=== PATIENT | male | born 1940 | race Caucasian/White ===

== ENCOUNTER 2020-09-20 06:06 | Inpatient (IN) | payer MEDICARE ==
[2020-09-20] MEDS ORDERED: [UNRECOGNIZED DRUG - OTHER] IV SCH (06:45)
[2020-09-20] MEDS ORDERED: HUM PROTHROMBIN CPLX IV SCH (06:45)
[2020-09-20] MEDS ORDERED: ADMIXTURE FEE IV SCH (06:45)
[2020-09-20 07:17] LABS: Hemoglobin 7.1 g/dL (14.0-18.0); Mean Corpuscular HGB CONC 31.3 g/dL (32.0-36.0); Mean Corpuscular Hemoglobin 24.9 pg (27.0-31.0); Mean Corpuscular Volume 79.4 fL (78.0-98.0); Mean Platelet Volume 9.9 fL (7.4-10.4); Platelet Count 107 thou/uL (130-400); RBC Distribution Width 16.8 % (11.5-14.5); Red Blood Cell (RBC) Count 2.84 mill/uL (4.70-6.10); White Blood Cell (WBC) Count 1.7 thou/uL (4.8-10.8)
[2020-09-20 07:20] LABS: INR-International Normal Ratio 1.5; PTT 30.2 sec (22.9-36.1); Prothrombin Time 18.1 sec (12.0-14.7)
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
[2020-09-20 07:51] LABS: CKMB 0.7 ng/mL (0-6.6)
[2020-09-20] MEDS ORDERED: Nitroglycerin 0.4 MG TAB (25 Tab Bottle) SL PRN (08:03)
[2020-09-20 08:08] LABS: #Lymphocytes 0.8 thou/uL (1.20-3.40); #Monocytes 0.2 thou/uL (0.11-0.59); #Neutrophils 0.8 thou/uL (1.40-6.50); %Eosinophils 1.1 % (0.0-10.0); %Lymphocytes 44.8 % (21.0-51.0); %Monocytes 9.2 % (0.0-10.0); %Neutrophils 44.9 % (42.0-75.0); Band 4 % (5-11); Hypochromia SLIGHT = 6-15 cells (100X) (0-5/hpf); Lymphocytes 51 % (21-51); MDiff Complete? YES; Microcytosis SLIGHT = 6-15 cells (100X) (0-5/hpf); Monocytes 3 % (0-10); Neutrophil 40 % (42-75); Ovalocytes MODERATE= 6-15 cells (100X) (0-1/hpf); Platelet Morphology Comment Appears Decreased; Polychromasia SLIGHT = 2-3 cells (100X) (0-2/hpf); Reactive Lymphocytes 2 % (0-10); Reflex for Review?? YES; Schistocytes SLIGHT = 2-5 cells (100X) (0-1/hpf); Tear Drops SLIGHT = 2-5 cells (100X) (0-1/hpf)
[2020-09-20 11:57] LABS: Troponin I 0.076 ng/mL (< 0.028)
[2020-09-20 12:48] LABS: SARS-CoV-2 MS2 Positive; SARS-CoV-2 N Gene Negative; SARS-CoV-2 S Gene Negative; SARS-CoV-2 by NAA Not Detected (NotDetected); SARS-CoV-2 orf1ab Negative
[2020-09-20] MEDS ORDERED: PHENYLEPHRINE-NS 100 MCG/ML 10 ML SYRINGE ONE (13:27)
[2020-09-20] MEDS ORDERED: Rocuronium Bromide 10 MG/ML (10ML VIAL) ONE (13:27)
[2020-09-20] MEDS ORDERED: Succinylcholine 200 MG/10 ml SYRINGE FS ONE (13:27)
[2020-09-20] MEDS ORDERED: PROPOFOL 200 MG/20 ML VIAL ONE (13:27)
[2020-09-20 13:53] LABS: Troponin I 0.068 ng/mL (< 0.028)
[2020-09-20 16:15] LABS: Hemoglobin 8.6 g/dL (14.0-18.0)
--- NOTE | 2020-09-20 16:42 | PDOC.HHP ---
Hospitalist HPI - History of Present Illness Chest pain History of Present Illness: Patient is a pleasant 80-year-old gentleman who was seen in the emergency room on September 20, 2020 following transfer from [facility] emergency room. He has a history of chronic lymphocytic leukemia. Hospitalized at [facility] from September 02- of this year for atrial fibrillation and congestive heart failure. He reports that he had a fall about a week ago. He sustained bruises over his face and chest from the fall. He also reports being treated for C. difficile for 2 weeks. Patient reportedly woke up around 1:30 AM today for chest pain. Patient is a poor historian and currently does not recall the chest pain and is unable to describe it. He was taken to the emergency room at [facility]. CT aortogram done at that location was suspicious for splenic rupture. He was therefore sent to our emergency room. His case was discussed by emergency room physician with general surgeon on-call, who felt that the CT finding may be an artifact and recommended admission to hospitalist service with general surgery consulting. Patient denies any fevers or chills. He denies any nausea or vomiting. He he reports pain over the right side of abdomen only when pressed. ED Course: BP: 104/48, MAP: 66, Pulse: 88, Resp: 17, Temp: 98.1 (Oral), Pain: 0, O2 sat: 97 on (Room Air), Time: 09/20/2020 07:10. Hospitalist ROS - Review of Systems Constitutional: reports: weakness. denies: fever, chills, sweats, malaise Cardiovascular: reports: chest pain. denies: palpitations, orthopnea, paroxysmal noc. dyspnea, edema, light headedness Gastrointestinal: reports: abdominal pain. denies: nausea, vomiting, diarrhea, constipation, melena, hematochezia All other systems reviewed; all pertinent +/- noted in HPI/Subj - Medication Medications: Allergies: Penicillin, sulfamethoxazole and trimethoprim. Home medications: digoxin oral WedSep 20, 2020 06:59 DANGELO [place] solution : Strength - 0.25 mg/5 mL (5 mL) : ORAL Patient Dose: 0.125 mg Oral once a day. dilTIAZem oral WedSep 20, 2020 06:59 DANGELO [place] capsule,extended release 24 hr : Strength - 240 mg : ORAL Patient Dose: 240 mg Oral once a day. Eliquis WedSep 20, 2020 07:00 DANGELO [place] tablet : Strength - 5 mg : ORAL Patient Dose: 5 mg Oral 2 times a day. carvedilol WedSep 20, 2020 07:01 DANGELO [place] tablet : Strength - 25 mg : ORAL Patient Dose: 60 mg Oral 2 times a day. furosemide oral WedSep 20, 2020 07:02 DANGELO [place] tablet : Strength - 40 mg : ORAL Patient Dose: 40 mg Oral once a day (in the morning). lisinopril WedSep 20, 2020 07:02 DANGELO [place] tablet : Strength - 2.5 mg : ORAL Patient Dose: 2.5 mg Oral once a day. vitamin B complex-vit B12 WedSep 20, 2020 07:03 DANGELO [place]aley drops : Strength - 1,200 mcg/mL : SUBLINGUAL Patient Dose: 1,000 mg Oral once a day. Vitamin D3 WedSep 20, 2020 07:04 DANGELO [place] capsule : Strength - 2,000 unit : ORAL Patient Dose: 50 mcg Oral once a day. levothyroxine oral WedSep 20, 2020 07:06 DANGELO [place]aley tablet : Strength - 50 mcg : ORAL Patient Dose: 50 mcg Oral once a day.Estimate from . Hospitalist History - Past Medical History Other Medical History: Past medical history: Atrial fibrillation, chronic leukemia, skin infections, bladder stone, chronic kidney disease and hypothyroidism. Surgical history: Left knee replacement. Family history: Congestive heart failure in his mother. Social history: Patient is an ex-smoker. Rare alcohol use. Does not use recreational drugs. CODE STATUS: I discussed his CODE STATUS. He is full code. - Exam General Appearance: awake alert Eye: PERRL ENT: normocephalic atraumatic, moist mucosa Neck: supple, symmetric, no thyromegaly, no lymphadenopathy Heart: no gallops, no rubs, normal peripheral pulses, irregular Respiratory: CTAB, no wheezes, no rales, no ronchi Gastrointestinal: soft, non-distended, normal bowel sounds, no guarding (Mild right upper quadrant tenderness), no rigidity, tender to palpation Skin - other findings: Healing bruises over face and chest Psychiatric: normal affect, normal behavior, oriented to person Hospitalist Results - Labs Result Diagrams: 09/20/20 16:01 Lab results: WBC 1.7 thou/uL (4.8-10.8) L 09/20/20 06:54 Hgb 8.6 g/dL (14.0-18.0) L 09/20/20 16:01 Hct 27.3 % (42.0-52.0) L 09/20/20 16:01 MCV 79.4 fL (78.0-98.0) 09/20/20 06:54 Plt Count 107 thou/uL (130-400) L 09/20/20 06:54 Neutrophils % 44.9 % (42.0-75.0) 09/20/20 06:54 Band Neuts % (Manual) 4 % (5-11) L 09/20/20 06:54 CK-MB (CK-2) 0.7 ng/mL (0-6.6) 09/20/20 06:54 Troponin I 0.068 ng/mL (< 0.028) H 09/20/20 13:16 B-Natriuretic Peptide 421.9 pg/mL (0-100) H 09/20/20 07:00 Labs and MAR reviewed by me - EKG Interpretation EKG: EKG by my review shows atrial fibrillation with controlled ventricular response, no ST changes to suggest an acute coronary syndrome. - Radiology Interpretation Other Status: image reviewed by me Additional Comment: CTA OF THE CHEST AND ABDOMEN: 1. There is massive splenomegaly with splenic rupture and active bleeding. Large amount of hemoperitoneum is seen. 2. No evidence of aortic dissection or aneurysmal dilatation. 3. Bilateral pleural effusions with adjacent atelectasis. Hospitalist H&P A/P - Problem (1) Chest pain Code(s): R07.9 - CHEST PAIN, UNSPECIFIED Status: Acute (2) Acute worsening of stage 3 chronic kidney disease Code(s): N18.30 - CHRONIC KIDNEY DISEASE, STAGE 3 UNSPECIFIED Status: Acute (3) Splenic rupture Code(s): S36.09XA - OTHER INJURY OF SPLEEN, INITIAL ENCOUNTER Status: Suspected (4) Atrial fibrillation Code(s): I48.91 - UNSPECIFIED ATRIAL FIBRILLATION Status: Chronic (5) Hypothyroidism Code(s): E03.9 - HYPOTHYROIDISM, UNSPECIFIED Status: Chronic (6) Pancytopenia Code(s): D61.818 - OTHER PANCYTOPENIA Status: Chronic (7) Leukemia Code(s): C95.90 - LEUKEMIA, UNSPECIFIED NOT HAVING ACHIEVED REMISSION Status: Chronic - Plan Plan: I discussed his case with the surgeon on-call, who has kindly agreed to assess the patient. Patient has received Kcentra and 1 unit packed RBCs, with improvement in hemoglobin. We will continue to monitor hemoglobin. We will obtain stress test once patient's acute issue of possible splenic rupture is addressed. Hypothyroidism appears to be stable. PT eval and treat for falls. Nephrology for optimization of renal function. Ideally, patient should be on beta-reji during the perioperative period. Resume beta-reji when blood pressures improved. Level of risk: High. Level of complexity: High. Estimated length of stay in the hospital: Greater than 2 midnights. Primary CARE provider: Dr. Yan Gerard
[2020-09-20] MEDS ORDERED: Fentanyl 100 MCG/2 ML VIAL ONE ×2 (16:45→20:29)
[2020-09-20] MEDS ORDERED: Sodium Chloride 0.9% 1,000 ML IV SCH (17:00)
[2020-09-20] MEDS ORDERED: Heparin 10,000 UNITS/ 10 ML VIAL ONE (17:31)
[2020-09-20] MEDS ORDERED: Fentanyl 250 MCG/5 ML VIAL ONE (17:56)
[2020-09-20] MEDS ORDERED: Phenylephrine 10 MG/ML VIAL ONE (18:10)
[2020-09-20 19:18] LABS: INR-International Normal Ratio 1.3; Prothrombin Time 16.4 sec (12.0-14.7)
--- NOTE | 2020-09-20 19:44 | CON ---
DATE OF CONSULTATION: 09/20/2020 CHIEF COMPLAINT: Abdominal pain. HISTORY OF PRESENT ILLNESS: Patient is an 80-year-old white male, with baseline dementia. He has a history of CLL that has been treated by an oncologist in the [place] since 2014. He and his live in [place]. When he was first diagnosed with this, he was noted to have massive splenomegaly. His initial round of treatment led to suspected remission of his disease and they were also told that his spleen had shrunk in size. He was found to have a recurrence of his disease about six months ago. He began treatment at that time with Imbruvica. In July, he was found to be in atrial fibrillation and had progressive cardiac problems. At that time, his Imbruvica was discontinued. He was admitted to the hospital on July 03 for treatment of his atrial fibrillation. He had a cardioversion done which was unsuccessful within 24 hours and has subsequently been rate controlled and anticoagulated. About a week ago, he fell at home resulting in bruising in several areas. He did not require a medical evaluation in regard to this apparently. In the middle of the night, his tells me that he awoke and felt chest pain and some shortness of breath and discomfort, but he had a hard time localizing his discomfort. He was eventually taken to the hospital at the [facility], where he underwent laboratory and radiologic studies. CT scan at that time revealed cardiomegaly, pleural effusion, massive splenomegaly, what appeared to be splenic rupture, and hemoperitoneum/ascites. There appeared to be some intrasplenic extravasation. His laboratory studies at that time revealed a hemoglobin of 7.6 with his last known hemoglobin of 2 months previously having been 9.8. He is leukocytopenic with a white blood cell count of 2.4, his platelet counts are slightly low at 113. Chemistry profile revealed that his potassium is a little low at 2.9, chloride a little low at 97. His creatinine was a little elevated at 1.56. He was transferred to this facility for further evaluation. He was noted to be stable hemodynamically with pulse in the 80s and a systolic blood pressure that remained over 100. He also appeared to be relatively comfortable. He had a history of having been on Eliquis. I therefore requested that he be administered Kcentra to attempt to stabilize his coagulopathy and initiate transfusion. He was given 1 unit of packed red blood cells and his hemoglobin has gone up from 7.1 to 8.6. He currently still complains of some abdominal discomfort. His thought process is clearly not coherent and he has difficulty communicating, but his is present at bedside. Patient does have some degree of abdominal discomfort. PAST MEDICAL HISTORY: 1. Atrial fibrillation. 2. Chronic lymphocytic leukemia. PAST SURGICAL HISTORY: Left knee replacement. He also had pilonidal cyst surgery in the remote past. ALLERGIES: TO PENICILLIN AND BACTRIM. PERSONAL AND SOCIAL HISTORY: He is . They have two children, both of whom live out of town. He has not smoked in over 50 years and drinks alcohol very rarely. MEDICATIONS: Currently include; 1. Carvedilol. 2. Eliquis. 3. Lisinopril. 4. Levothyroxine. 5. Lasix. 6. Diltiazem. 7. Multaq. PHYSICAL EXAMINATION: VITAL SIGNS: He is afebrile, pulse is 82, and blood pressure is 110/55. GENERAL: He is an elderly white male, resting in bed with at bedside. He is alert and knows his age, but is unable to hold a coherent conversation. HEAD, EYES, EARS, NOSE, AND THROAT: Reveal some bruising but is otherwise unremarkable. NECK: Supple. LUNGS: Clear to auscultation. CARDIAC: Appears to be regular rhythm currently. Heart sounds are somewhat distant. ABDOMEN: Nondistended, but he is uncomfortable to palpation diffusely. Bowel sounds are present, but hypoactive. EXTREMITIES: Unremarkable. LABORATORY DATA: As mentioned his current hemoglobin is 8.6, up from 7.1 earlier this morning. Chemistries referenced to elsewhere previously. ASSESSMENT: Patient with what appears to have been spontaneous rupture of his spleen, likely related to his massive splenomegaly. It is uncertain if this is acute or chronic meaning that I am not certain if this is happened when he fell a week ago or more recently. It is also uncertain whether this is a traumatic rupture or spontaneous rupture. At this juncture in light of his anemia and his massive splenic disease, the most prudent surgical course is to proceed with splenectomy. While it is possible that angioembolization may stem any acute bleeding and the ongoing problems will likely persist and may acutely exacerbate. I spoke at length with the patient's . The patient hears me, but I am not certain how much he understood. There are certainly high risks associated with the laparotomy for massive splenomegaly. He will certainly go to the Intensive Care Unit on ventilator after surgery. There is a significant risk of mortality associated with surgery, but probably higher risk without. I have discussed his case in detail with Dr. Penn. As the patient will require critical care, will be cared for over the weekend by Dr. Penn, then Dr. Penn has agreed to assume this case. He will likely perform the surgery here shortly this evening. Job ID: [id number]
[2020-09-20] MEDS ORDERED: Midazolam HCl 2 mg/2 ml Vial ONE (20:03)
[2020-09-20] MEDS ORDERED: Propofol 1,000 MG/100 ML VIAL IV ONE (20:08)
[2020-09-20] MEDS ORDERED: Propofol BOLUS 1,000 MG/100 ML VIAL IV PRN (20:45)
[2020-09-20] MEDS ORDERED: Morphine 2 MG/ML VIAL SLOW IVP PRN (20:45)
[2020-09-20] MEDS ORDERED: Fentanyl BOLUS 250 ML IVPB PRN (20:45)
[2020-09-20] MEDS ORDERED: Lorazepam 2 MG/ML VIAL SLOW IVP PRN (20:45)
[2020-09-20] MEDS ORDERED: Propofol 1,000 MG/100 ML VIAL IV PRN (20:45)
[2020-09-20] MEDS ORDERED: fentaNYL Citrate/PF 2,000 MCG in Sodium Chloride 0.9% 60 ML IV SCH (20:45)
[2020-09-20] MEDS ORDERED: DISCONTINUE PREVIOUS NARCOTIC PAIN MEDICATIONS AND BENZODIAZEPINES FS SCH (20:45)
--- NOTE | 2020-09-20 21:11 | RAD ---
CHEST ONE VIEW: 09/20/20 HISTORY: Intubated. COMPARISON: 07/03/20. FINDINGS: Cardiac silhouette is magnified by projection. Pulmonary vasculature is unremarkable. Mediastinum is midline with aortic calcification. Tip of an endotracheal catheter overlies the trachea between the l evel of the clavicular heads and the argenis. Tip of a left subclavian central venous catheter project s over the superior vena cava. No evidence of pneumothorax. Feeding tube and nasogastric tube descends to the abdomen. Evidence of free subdiaphragmatic gas suggesting recent abdominal surgery. IMPRESSION: Endotracheal catheter in good radiographic position. Other lines and tubes as detailed above. POS: BST
--- NOTE | 2020-09-20 21:14 | RAD ---
ABDOMEN ONE VIEW: 09/20/20 HISTORY: Feeding tube placement. FINDINGS: Bowel gas pattern is nonspecific. Nasogastric tube overlies the left upper quadrant with proximal rosa m e hole below the level of the diaphragm. Small amount of gas remains within the stomach. Dobhoff feeding catheter descends to the abdomen, coursing over the expected location of the duodenum . Metallic tip is directed towards the ligament of Treitz in the left upper quadrant. Irregular lucency over the right mid abdomen appears to outline the gallbladder and right liver margins and may reflec t intraperitoneal gas from recent surgery. IMPRESSION: Dobhoff feeding tip overlies the fourth portion of the duodenum. POS: BST
[2020-09-20 21:42] LABS: Actual Bicarbonate (HCO3a) 22.6 mEq/L (22-28); CO2 Tension 26.7 mmHg (35.0-45.0); Calcium, Ionized (arterial) 1.11 mmol/L (1.12-1.30); Carboxyhemoglobin (COHb) 0.5 gm% (0.0-3.0); Hemoglobin (Hb) 11.3 g/dL (14.0-18.0); O2 Tension (PaO2), arterial 230.1 mmHg (> 60.0); Potassium - ABG Lab 2.42 mmol/L (3.70-5.30)
[2020-09-20 21:52] LABS: ALV-art Gradient 93.025 mmHg (0-20); Puncture Site Arterial Line; pH, Arterial 7.55 (7.35-7.45)
[2020-09-20] MEDS ORDERED: Potassium Chloride 40 MEQ in Premix Bag 1 BAG IVPB SCH (22:00)
[2020-09-20] MEDS ORDERED: Calcium Chloride 1 GM/10 ML Abboject SYRINGE IVP SCH (22:00)
[2020-09-20] MEDS ORDERED: Calcium Chloride 13.6 MEQ in Sodium Chloride 0.9% 100 ML IVPB SCH (22:15)
[2020-09-20 22:18] LABS: #Lymphocytes 0.4 thou/uL (1.20-3.40); #Monocytes 0.1 thou/uL (0.11-0.59); #Neutrophils 3.2 thou/uL (1.40-6.50); %Basophils 0.8 % (0.0-1.0); %Eosinophils 0.6 % (0.0-10.0); %Lymphocytes 11.4 % (21.0-51.0); %Monocytes 3.7 % (0.0-10.0); %Neutrophils 83.5 % (42.0-75.0); Mean Corpuscular HGB CONC 30.8 g/dL (32.0-36.0); Mean Corpuscular Hemoglobin 24.4 pg (27.0-31.0); Mean Corpuscular Volume 79.1 fL (78.0-98.0); Mean Platelet Volume 10.7 fL (7.4-10.4); Platelet Count 154 thou/uL (130-400); RBC Distribution Width 17.4 % (11.5-14.5); Red Blood Cell (RBC) Count 4.51 mill/uL (4.70-6.10); White Blood Cell (WBC) Count 3.8 thou/uL (4.8-10.8)
[2020-09-20 22:23] LABS: INR-International Normal Ratio 1.3; PTT 27.6 sec (22.9-36.1); Prothrombin Time 16.3 sec (12.0-14.7)
[2020-09-20] MEDS: CEFAZOLIN 2 GM in Premix Bag 1 BAG IVPB SCH (22:29)
[2020-09-20 22:31] LABS: Lactic Acid 1.2 mmol/L (0.5-2.2)
[2020-09-20 22:34] LABS: Anion Gap 16 mmol/L (10-20); Anion Gap 17 mmol/L (10-20); BUN (Urea Nitrogen) 20 mg/dL (8.4-25.7); Calc. Creatinine Clearance 39 mL/min (70-130); Calc. Creatinine Clearance 40 mL/min (70-130); Calcium 8.4 mg/dL (7.8-10.44); Carbon Dioxide 25 mmol/L (23-31); Chloride 104 mmol/L (98-107); Glucose 157 mg/dL (83-110); Glucose 159 mg/dL (83-110); Magnesium 1.8 mg/dL (1.6-2.6); Sodium 143 mmol/L (136-145); Sodium 144 mmol/L (136-145)
[2020-09-20 22:40] LABS: Potassium 2.2 mmol/L (3.5-5.1); Potassium 2.3 mmol/L (3.5-5.1)
[2020-09-20] MEDS ORDERED: Magnesium 2 GM/50 ML 2 GM in Premix Bag 1 BAG IVPB SCH (23:00)
[2020-09-20] MEDS ORDERED: Sodium Phosphate 15 MMOL in Sodium Chloride 0.9% 250 ML 250 ML IVPB SCH (23:00)
[2020-09-20] MEDS: Potassium Chloride 20 MEQ in Lactated Ringer's 1,000 ML IV SCH (23:06)
--- NOTE | 2020-09-21 00:32 | OP ---
DATE OF PROCEDURE: 09/20/2020 PREOPERATIVE DIAGNOSIS: Splenic rupture with large hemoperitoneum and acute blood loss anemia. POSTOPERATIVE DIAGNOSIS: Splenic rupture with large hemoperitoneum and acute blood loss anemia. PROCEDURE PERFORMED: Placement of left subclavian central venous catheter. INDICATIONS FOR PROCEDURE: This is an 80-year-old man with history of chronic leukemia and massive splenomegaly, who has sustained a splenic rupture with hemoperitoneum and acute blood loss anemia. He is being prepped for exploratory laparotomy and splenectomy. Decision was made to place a central venous catheter for hemodynamic monitoring and for intravenous therapeutics. DESCRIPTION OF PROCEDURE: Informed consent was obtained from the patient, who was placed in supine position. Left chest wall sterilely prepped and draped in usual fashion. The skin below the left clavicle was anesthetized with 1% lidocaine. Left subclavian vein was cannulated with an 18-gauge introducer needle returning dark venous blood. Guidewire was passed through the needle and advanced into the left subclavian vein without resistance. Needle was withdrawn over the guidewire. A stab incision was made adjacent to the guidewire using 11 scalpel. Dilator was passed over the guidewire dilating the subcutaneous tissues. Dilator was removed and a triple-lumen central venous catheter was advanced over the guidewire and placed in the left subclavian vein without resistance stopping at the 18 cm fernando. The guidewire was removed. Dark venous blood was aspirated from all three ports, which were individually flushed with saline. Catheter was secured to anterior chest wall using 3-0 silk suture at two points. Sterile dressings were applied. The patient tolerated the procedure without any apparent complications and remained hemodynamically stable following completion of procedure. Job ID: [id number]
--- NOTE | 2020-09-21 00:33 | OP ---
DATE OF PROCEDURE: 09/20/2020 PREOPERATIVE DIAGNOSES: 1. Spontaneous versus traumatic splenic rupture. 2. Massive splenomegaly. 3. Acute blood loss anemia. POSTOPERATIVE DIAGNOSES: 1. Spontaneous versus traumatic splenic rupture. 2. Massive splenomegaly. 3. Acute blood loss anemia. OPERATIONS PERFORMED: 1. Exploratory laparotomy. 2. Evacuation of large hemoperitoneum with abdominal washout. 3. Splenectomy. 4. Placement of feeding nasojejunal tube. ANESTHESIA: General endotracheal. ESTIMATED BLOOD LOSS: 350 mL excluding 1400 mL of hemoperitoneum out of which 494 mL of Cell Saver blood was recovered. FLUIDS GIVEN: 600 mL crystalloids and 500 mL of Cell Saver blood. URINARY OUTPUT: 500 mL. Sponge and instrument counts were verified as correct x2. COMPLICATIONS: None apparent at the time of operation. INDICATIONS FOR OPERATION: An 80-year-old man approximately two weeks status post ground-level fall. The patient has pre-existing history of massive splenomegaly and chronic leukemia. He has been experiencing progressive weakness. Workup included a CT angiography, which incidentally showed massive splenomegaly with splenic rupture and large hemoperitoneum with active contrast extravasation. Laboratory studies also revealed the patient with acute blood loss anemia. The patient was on Eliquis. He had received a 4-factor prothrombin complex this morning and decision was made to bring him to the operating room for exploratory laparotomy and splenectomy. Findings are consistent with massive splenomegaly with rupture and active bleeding with a large hemoperitoneum. DESCRIPTION OF PROCEDURE: Informed consent was obtained for the patient, who was brought to the operating room and placed in supine position. Following general anesthesia, Tsai catheter was inserted and placed to bedside drain. Nasogastric tube was inserted and placed to wall suction. The abdomen was sterilely prepped and draped in usual fashion. A midline incision was made using 10 scalpel. Incision was carried through subcutaneous tissues and maintained hemostasis using cautery. Fascia was incised in the midline exposing the peritoneum beneath, which was grasped x2 with hemostats. Peritoneal cavity was sharply entered using Metzenbaum scissors. Large amount of blood was evacuated from the peritoneal cavity. I placed laparotomy packs above the spleen and proceeded with a splenectomy. The splenocolic ligament sterilely divided using LigaSure with good hemostasis. The short gastrics were also divided between clamps and ligated with a stick tie of 2-0 silk and then reinforced with clips. The splenic hilum was then cross clamped and divided. The splenic vessels were then ligated using a stick tie of 0 silk suture and this was also doubly ligated with a free tie of 2-0 silk. This was reinforced with a clip. The large spleen was passed off the operative field for formal transmission to Pathology. Abdominal cavity was then copiously irrigated clear with saline. No active bleeding was noted. Once the irrigant fluid was evacuated in all 4 quadrants, small bowel was run from ligament of Treitz down to terminal ileum. No pathology noted. Large intestine inspected from the cecum through the ascending, transverse, descending, sigmoid colon and rectum and no pathology was noted. The previous nasogastric tube was palpated within the gastric lumen. An enlarged gallbladder was noted in the usual anatomic location devoid of stones. The liver is enlarged without any nodularity. At this juncture, a feeding nasojejunal tube was inserted by Anesthesia, the tip of which was palpated by myself within the gastric lumen. I was able to manipulate the tip of this catheter into proximal small bowel without resistance. Finding no other pathology, exploration was terminated. All sponges and instruments were removed and accounted for. I placed a sheet of Seprafilm in the deep pelvis prior to returning small bowel in the normal anatomic location. A second sheet of Seprafilm was placed between small bowel loops. Omentum was drawn over remainder of the viscera. Fascia was approximated in the midline using a running stitch of #1 single stranded PDS. Bleeding points in the subcutaneous tissues were controlled using cautery. Skin incision was then closed using a running stitch of 3-0 Monocryl in a subcuticular fashion. Dermabond was applied over incisional closure. The patient tolerated the operation without any apparent complication and was returned to the recovery room in critical, but stable condition en route to the intensive care unit. Job ID: [id number]
[2020-09-21 01:18] LABS: Bacteria/HPF None Seen HPF (None Seen); Bilirubin Negative (Negative); Blood, Urine 3+ (Negative); Clarity Turbid (Clear); Glucose, Urine (Dipstick) Normal (Negative); Ketone, Urine 10 mg/dL (Negative); Leukocyte 250 Leu/uL (Negative); Nitrite Negative (Negative); Protein, Urine (Dipstick) 70 mg/dL (Neg-Trace); RBC/HPF Greater than 50 HPF (0-3); Specific Gravity, Urine 1.034 (1.002-1.036); Squamous Epithelial None Seen HPF (0-3); Urobilinogen Normal mg/dL (Less than 2); pH, Urine 5.5 (5.0-9.0)
[2020-09-21 01:21] LABS: Urine Culture Reflex Yes Yes
[2020-09-21 01:45] LABS: Creatinine, Urine 88.2 mg/dL (63-166)
[2020-09-21] MEDS ORDERED: Lactated Ringer's 1,000 ML IV SCH (02:30)
[2020-09-21 05:06] LABS: PTT 29.3 sec (22.9-36.1)
[2020-09-21 05:15] LABS: Lactic Acid 1.8 mmol/L (0.5-2.2)
[2020-09-21 05:18] LABS: INR-International Normal Ratio 1.3; Prothrombin Time 16.6 sec (12.0-14.7)
[2020-09-21 05:20] LABS: Anion Gap 15 mmol/L (10-20); BUN (Urea Nitrogen) 19 mg/dL (8.4-25.7); Calc. Creatinine Clearance 35 mL/min (70-130); Calcium 8.5 mg/dL (7.8-10.44); Carbon Dioxide 27 mmol/L (23-31); Chloride 106 mmol/L (98-107); Glucose 143 mg/dL (83-110); Potassium 3.5 mmol/L (3.5-5.1); Sodium 144 mmol/L (136-145)
[2020-09-21 05:23] LABS: Phosphorus 4.1 mg/dL (2.3-4.7)
[2020-09-21 05:45] VITALS: BMI 17.9
[2020-09-21 05:56] LABS: Hemoglobin 9.7 g/dL (14.0-18.0); Mean Corpuscular HGB CONC 31.1 g/dL (32.0-36.0); Mean Corpuscular Hemoglobin 24.6 pg (27.0-31.0); Mean Corpuscular Volume 79.3 fL (78.0-98.0); Mean Platelet Volume 11.5 fL (7.4-10.4); Platelet Count 158 thou/uL (130-400); RBC Distribution Width 17.6 % (11.5-14.5); Red Blood Cell (RBC) Count 3.94 mill/uL (4.70-6.10); White Blood Cell (WBC) Count 5.6 thou/uL (4.8-10.8)
[2020-09-21] MEDS: CEFAZOLIN 2 GM in Premix Bag 1 BAG IVPB SCH ×4 (05:57→13:33)
[2020-09-21 06:02] LABS: Band 48 % (5-11); Elliptocytes SLIGHT = 2-5 cells (100X) (0-1/hpf); Lymphocytes 6 % (21-51); MDiff Complete? YES; Neutrophil 46 % (42-75); Nucleated RBC 1 % (0); Polychromasia SLIGHT = 2-3 cells (100X) (0-2/hpf)
[2020-09-21] MEDS: Potassium Chloride 20 MEQ in Lactated Ringer's 1,000 ML IV SCH ×3 (06:30→23:25)
[2020-09-21 07:14] LABS: Actual Bicarbonate (HCO3a) 24.3 mEq/L (22-28); Base Excess (BEa) 0.5 mEq/L (-2.0 to +3.0); CO2 Tension 35.7 mmHg (35.0-45.0); Calcium, Ionized (arterial) 1.15 mmol/L (1.12-1.30); Carboxyhemoglobin (COHb) 0.2 gm% (0.0-3.0); Hemoglobin (Hb) 10.1 g/dL (14.0-18.0); O2 Tension (PaO2), arterial 126.1 mmHg (> 60.0); Potassium - ABG Lab 3.33 mmol/L (3.70-5.30); pH, Arterial 7.45 (7.35-7.45)
[2020-09-21 07:40] LABS: ALV-art Gradient 114.475 mmHg (0-20); Puncture Site RRA
--- NOTE | 2020-09-21 08:12 | RAD ---
Chest one view HISTORY: Dyspnea. Follow-up. COMPARISON: 09/20/2020. FINDINGS: Cardiac silhouette is magnified by projection. Pulmonary vasculature upper limits of normal . Mediastinum is midline. Lines and tubes unchanged in position. Lungs are hyperinflated with the exception of density at the left medial lung base where a vertically oriented density obscures the left hemidiaphragm more than on the prior study. No evidence of pneumothorax. IMPRESSION : Increasing atelectasis at the left lung base. Findings are otherwise stable.
[2020-09-21] MEDS ORDERED: Potassium Chloride 40 MEQ in Premix Bag 1 BAG IVPB SCH (08:15)
--- NOTE | 2020-09-21 08:44 | PDOC.NEPPN ---
- Subjective Encounter Date: 09/21/20 Subjective: Seen in follow up for KAYLENE and hypokalemia. Still intubated and mechanically ventilated. - Objective Vital Signs & Weight: Vital Signs (12 hours) Temp Pulse Resp Pulse Ox 09/21/20 08:00 12 09/21/20 07:41 110 H 09/21/20 07:30 100 09/21/20 07:00 102.8 F H 09/21/20 06:00 12 09/21/20 04:00 98.8 F 12 09/21/20 02:00 12 09/21/20 00:00 98.4 F 12 09/20/20 22:00 12 09/20/20 21:05 100 09/20/20 21:00 98.1 F 12 Weight Weight 121 lb 6.4 oz Most Recent Monitor Data Heart Rate from ECG 120 NIBP 101/52 NIBP BP-Mean 68 Respiration from ECG 10 SpO2 100 I&O: 09/20/20 09/21/20 09/22/20 06:59 06:59 06:59 Intake Total 3081.2 0 Output Total 515 10 Balance 2566.2 -10 Result Diagrams: 09/21/20 04:30 09/21/20 04:30 Nephrology ROS - Medication Medications: Active Medications Generic Name Dose Route Start Last Admin Trade Name Freq PRN Reason Stop Dose Admin Albumin Human 25 gm 09/21/20 07:30 09/21/20 07:47 Albumin 5% 25 Gm/500 Ml Bot IVPB 09/21/20 23:59 25 gm NOW SIMA Administration Cefazolin Sodium/Dextrose 2 gm 50 mls @ 100 mls/hr 09/20/20 17:00 09/21/20 06:00 / Device IVPB 50 mls ONCALL-OR SIMA Administration Fentanyl Citrate 2,000 mcg/ 100 mls @ 0 mls/hr 09/20/20 20:45 09/20/20 22:05 Sodium Chloride IV 10/20/20 20:45 100 mls INF SIMA Administration Protocol Per Protocol Cefazolin Sodium/Dextrose 2 gm 50 mls @ 100 mls/hr 09/20/20 22:00 09/21/20 06:00 / Device IVPB 09/21/20 14:29 50 mls Q8HR SIMA Administration Potassium Chloride 20 meq/ 1,010 mls @ 125 mls/hr 09/20/20 21:00 09/21/20 06:30 Lactated Ringer's IV 1,010 mls .Q8H5M SIMA Administration Potassium Chloride 40 meq/ 100 mls @ 25 mls/hr 09/21/20 08:15 09/21/20 08:35 Device IVPB 09/21/20 12:00 100 mls NOW SIMA Administration Influenza Virus Vaccine Quadrival 240 mcg 09/21/20 09:00 09/21/20 08:35 Flu Vacc [id number](65yr Up)/Pf 240 Mcg/0.7 Ml Syringe IM 09/21/20 09:01 Not Given .ONCE ONE Pneumococcal Polyvalent Vaccine 0.5 ml 09/21/20 09:00 09/21/20 08:35 Pneumococcal 23 "Pneumovax" 0.5 Ml Vial IM 09/21/20 09:01 Not Given .ONCE ONE Sodium Chloride 10 ml 09/21/20 09:00 09/21/20 08:36 Flush - Normal Saline 10 Ml Syringe IVF 10 ml Q12HR SIMA Administration - Exam General - other findings: sedated ENT: normocephalic atraumatic ENT - other findings: ET tubre is in place Respiratory - other findings: Ventilator transmitted breath sound noted Cardiovascular: irregular Gastrointestinal - other findings: full. midline surgical wound noted Extremities: 2+ LE edema Neurological - other findings: sedated Nephrology Results - Labs Result Diagrams: 09/21/20 04:30 09/21/20 04:30 Lab results: WBC 5.6 thou/uL (4.8-10.8) 09/21/20 04:30 Hgb 9.7 g/dL (14.0-18.0) L 09/21/20 04:30 Hct 31.2 % (42.0-52.0) L 09/21/20 04:30 MCV 79.3 fL (78.0-98.0) 09/21/20 04:30 Plt Count 158 thou/uL (130-400) 09/21/20 04:30 Neutrophils % 83.5 % (42.0-75.0) H 09/20/20 21:53 Band Neuts % (Manual) 48 % (5-11) H 09/21/20 04:30 ABG pH 7.45 (7.35-7.45) 09/21/20 07:07 ABG pCO2 35.7 mmHg (35.0-45.0) 09/21/20 07:07 ABG pO2 126.1 mmHg (> 60.0) H 09/21/20 07:07 Sodium 144 mmol/L (136-145) 09/21/20 04:30 Potassium 3.5 mmol/L (3.5-5.1) 09/21/20 04:30 Chloride 106 mmol/L (98-107) 09/21/20 04:30 Carbon Dioxide 27 mmol/L (23-31) 09/21/20 04:30 BUN 19 mg/dL (8.4-25.7) 09/21/20 04:30 Creatinine 1.66 mg/dL (0.7-1.3) H 09/21/20 04:30 Glucose 143 mg/dL (83-110) H 09/21/20 04:30 Lactic Acid 1.8 mmol/L (0.5-2.2) 09/21/20 04:30 Calcium 8.5 mg/dL (7.8-10.44) 09/21/20 04:30 CK-MB (CK-2) 0.7 ng/mL (0-6.6) 09/20/20 06:54 Troponin I 0.068 ng/mL (< 0.028) H 09/20/20 13:16 B-Natriuretic Peptide 421.9 pg/mL (0-100) H 09/20/20 07:00 Urine Ketones 10 mg/dL (Negative) A 09/21/20 01:00 Urine Blood 3+ (Negative) A 09/21/20 01:00 Urine Nitrite Negative (Negative) 09/21/20 01:00 Ur Leukocyte Esterase 250 Radha/uL (Negative) A 09/21/20 01:00 Urine RBC Greater than 50 HPF (0-3) A 09/21/20 01:00 Urine WBC 11-20 HPF (0-3) A 09/21/20 01:00 Ur Squamous Epith Cells None Seen HPF (0-3) 09/21/20 01:00 Urine Bacteria None Seen HPF (None Seen) 09/21/20 01:00 Sodium 144 mmol/L (136-145) 09/21/20 04:30 Potassium 3.5 mmol/L (3.5-5.1) 09/21/20 04:30 Chloride 106 mmol/L (98-107) 09/21/20 04:30 Carbon Dioxide 27 mmol/L (23-31) 09/21/20 04:30 Anion Gap 15 mmol/L (10-20) 09/21/20 04:30 BUN 19 mg/dL (8.4-25.7) 09/21/20 04:30 Creatinine 1.66 mg/dL (0.7-1.3) H 09/21/20 04:30 Glucose 143 mg/dL (83-110) H 09/21/20 04:30 Calcium 8.5 mg/dL (7.8-10.44) 09/21/20 04:30 Phosphorus 4.1 mg/dL (2.3-4.7) 09/21/20 04:30 Magnesium 2.0 mg/dL (1.6-2.6) 09/21/20 04:30 Nephrology AP PN - Plan KAYLENE: Due to hemodynamic factors related to volume depletion from acute hemorrhage. CKD stage 3. Metabolic alkalosis: Due to intravascular contraction. Improved. Hypokalemia. repleted. 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 Monitor renal function and electrolytes and replete as indicated.
[2020-09-21] MEDS ORDERED: FLU VACC QS2020-21(65YR UP)/PF 240 MCG/0.7 ML SYRINGE IM ONE (09:00)
--- NOTE | 2020-09-21 10:40 | CON ---
DATE OF CONSULTATION: 09/20/2020 SERVICE: Nephrology. REASON FOR CONSULTATION: Acute kidney injury. REQUESTING PHYSICIAN: Lang Aldana MD CHIEF COMPLAINT: Chest pain. HISTORY OF PRESENT ILLNESS: Following history was obtained from review of medical record. The patient is currently intubated and mechanically ventilated post surgery. The patient is an 80-year-old male with known history of chronic leukemia, atrial fibrillation, and nephrolithiasis as well as CKD, who was admitted on transfer from [place] [facility] for further evaluation and treatment of possible splenic rupture. The patient with some memory lapses had reportedly developed chest pain for which he was taken to the ER in [place]. Further evaluation there with CT aortogram was suspicious for splenic rupture, hence was transferred over here for further evaluation and treatment. It was also noticed that the patient has acute elevation in creatinine from baseline 1.1 to 1.56 associated with electrolyte derangements, hence Nephrology consult. The patient was seen by Surgery/Trauma and subsequently had exploratory laparotomy, evacuation of hemoperitoneum and splenectomy and is currently in ICU, intubated and mechanically ventilated. PAST MEDICAL HISTORY: 1. CLL. 2. Atrial fibrillation. 3. Hypothyroidism. 4. Urolithiasis. 5. CKD, stage 3. PAST SURGICAL HISTORY: Left knee replacement. FAMILY HISTORY: Could not be obtained due to the patient's condition. However, it is reported that the patient's mother had CHF. SOCIAL HISTORY: Ex-smoker. Occasionally used alcohol reportedly. ALLERGIES: PENICILLIN, SULFAMETHOXAZOLE, AND TRIMETHOPRIM. MEDICATIONS: Prior to hospital, medications are as follows; 1. Vitamin B12 of 1000 p.o. daily. 2. Carvedilol 6.25 p.o. b.i.d. 3. Diltiazem ER 240 mg daily. 4. Eliquis 5 mg p.o. b.i.d. 5. Furosemide 40 mg p.o. daily. 6. Levothyroxine 50 mcg p.o. daily. 7. Lisinopril 2.5 mg p.o. daily. 8. Multaq 400 mg p.o. daily. 9. Metolazone 5 mg p.o. daily. 10. Digoxin 0.125 mg p.o. daily. REVIEW OF SYSTEMS: Could not be performed. PHYSICAL EXAMINATION: VITAL SIGNS: Temperature 98.1, respiratory rate 12, FiO2 of 100% on ventilator, and pulse 90. GENERAL: Elderly male, on mechanical ventilator. HEENT: Normocephalic, atraumatic. ET tube and NG tube are in place. CARDIOVASCULAR: Irregular rhythm and rate. Normal heart sounds 1 and 2. RESPIRATORY: Ventilator transmitted breath sounds noted. GASTROINTESTINAL: Full, soft, midline surgical incision noted. UROGENITAL: Tsai catheter is in place, draining some urine. EXTREMITIES: Lorcjzfm-cl-svnbws bilateral leg edema noted. CENTRAL NERVOUS SYSTEM: Sedated. DIAGNOSTIC DATA: CBC on presentation showed WBC of 3.4, hemoglobin of 7.6, MCV of 77.5, and platelet of 113. CMP on presentation showed sodium 143, potassium 2.9, chloride 97, CO2 of 33, BUN 19, creatinine 1.56, glucose 147, calcium 9.2, albumin 3.2, and globulin 1.5. Of note, however on July 08, creatinine was 1.12. ASSESSMENT: 1. Acute kidney injury, most likely due to hemodynamic factors related to hemorrhagic shock. 2. Hypokalemia: Most likely due to diuretic therapy with Lasix and metolazone. 3. Chronic bilateral leg edema: Most likely due to cardiac decompensation. 4. Metabolic alkalosis noted on presentation: Most likely due to volume contraction. 5. Chronic bilateral leg edema. PLAN: Continue supportive care with IVF and pressors. Get repeat BMP and correct electrolytes asindicated We will also get urinalysis and urine electrolytes. Further treatment to follow depending on review of other diagnostic tests and hospital course. Many thanks for involving us in the care of this patient. We will follow along with you. Job ID: [id number] [facility]
--- NOTE | 2020-09-21 13:13 | EKG ---
Test Reason : Blood Pressure : / mmHG Vent. Rate : 091 BPM Atrial Rate : 094 BPM P-R Int : 000 ms QRS Dur : 148 ms QT Int : 444 ms P-R-T Axes : 000 041 -13 degrees QTc Int : 546 ms Wide QRS rhythm with Fusion complexes Non-specific intra-ventricular conduction block Lateral infarct , age undetermined Inferior infarct , age undetermined T wave abnormality, consider anterior ischemia Abnormal ECG Confirmed by ANALIA DENISE ([id number]), editorial cartoonist SIMONA BIGGS ([id number]) on 09/21/2020 1:13:10 PM Referred By: Confirmed By:ANALIA DENISE
[2020-09-21] MEDS ORDERED: Digoxin 0.5 MG/2 ML AMP SLOW IVP SCH (15:00)
[2020-09-21 15:10] LABS: Mean Corpuscular HGB CONC 31.6 g/dL (32.0-36.0); Mean Corpuscular Hemoglobin 25.1 pg (27.0-31.0); Mean Corpuscular Volume 79.5 fL (78.0-98.0); Mean Platelet Volume 11.2 fL (7.4-10.4); Platelet Count 156 thou/uL (130-400); RBC Distribution Width 17.6 % (11.5-14.5); White Blood Cell (WBC) Count 5.8 thou/uL (4.8-10.8)
--- NOTE | 2020-09-21 16:39 | PDOC.HOSPP ---
- Subjective Encounter Date: 09/21/20 Encounter Time: 16:37 non-verbal Subjective: Mr. Villalba is an 80-year-old patient who presented to the hospital from outside facility where he was evaluated after he complained about chest discomfort. However on further evaluation he was found to have ruptured spleen. He has history of CLL and does follow oncology as outpatient. He was taken to the operating room and he underwent exploratory laparotomy and splenectomy. He remains intubated in ICU today. No family at the bedside when I visited. He has acute kidney injury likely secondary to volume depletion related to the surgery. He lost quite a significant amount of blood. So far he has received 1 unit of packed red cells. We will continue routine postop care. Appreciate nephrology and surgery. Patient started having fever all day. T-max is 102.8. He did receive pre or antibiotics. Worried about the possibility of an infectious process developing. Chest x-ray has a questionable atelectasis versus infiltrate in the left lower lobe. I am going to get a set of blood cultures and I will start him on empiric Zosyn. We will try to cover for both anaerobic and gram-negative bacteria. - Objective Vital Signs & Weight: Vital Signs (12 hours) Temp Pulse Resp Pulse Ox 09/21/20 16:00 102.3 F H 18 09/21/20 15:08 117 H 09/21/20 14:38 117 H 09/21/20 14:00 16 09/21/20 11:59 101.8 F H 12 09/21/20 10:14 108 H 09/21/20 10:00 10 L 09/21/20 08:00 12 09/21/20 07:41 110 H 09/21/20 07:30 100 09/21/20 07:00 102.8 F H 09/21/20 06:00 12 Weight Admit Weight 157 lb 3.2 oz Weight 121 lb 6.4 oz Most Recent Monitor Data Heart Rate from ECG 111 NIBP 110/60 NIBP BP-Mean 76 Respiration from ECG 0 SpO2 100 I&O: 09/20/20 09/21/20 09/22/20 06:59 06:59 06:59 Intake Total 3081.2 0 Output Total 515 195 Balance 2566.2 -195 Result Diagrams: 09/21/20 14:55 09/21/20 04:30 Radiology Reviewed by me: Yes EKG Reviewed by me: Yes Hospitalist ROS - Review of Systems ROS unobtainable: due to endotracheal tube Constitutional: reports: weakness, malaise Neurological: reports: weakness - Medication Medications: Active Medications Generic Name Dose Route Start Last Admin Trade Name Ortega PRN Reason Stop Dose Admin Albumin Human 25 gm 09/21/20 07:30 09/21/20 07:47 Albumin 5% 25 Gm/500 Ml Bot IVPB 09/21/20 23:59 25 gm NOW SIMA Administration Digoxin 0.125 mg 09/21/20 15:00 09/21/20 15:08 Digoxin 0.5 Mg/2 Ml Amp SLOW IVP 09/21/20 17:00 0.125 mg NOW SIMA Administration Cefazolin Sodium/Dextrose 2 gm 50 mls @ 100 mls/hr 09/20/20 17:00 09/21/20 06:00 / Device IVPB 50 mls ONCALL-OR SIMA Administration Fentanyl Citrate 2,000 mcg/ 100 mls @ 0 mls/hr 09/20/20 20:45 09/20/20 22:05 Sodium Chloride IV 10/20/20 20:45 100 mls INF SIMA Administration Protocol Per Protocol Potassium Chloride 20 meq/ 1,010 mls @ 125 mls/hr 09/20/20 21:00 09/21/20 12:53 Lactated Ringer's IV 1,010 mls .Q8H5M SIMA Administration Sodium Chloride 10 ml 09/21/20 09:00 09/21/20 08:36 Flush - Normal Saline 10 Ml Syringe IVF 10 ml Q12HR SIMA Administration - Exam General Appearance: NAD, ill appearing Eye: PERRL, anicteric sclera ENT: normocephalic atraumatic, no oropharyngeal lesions, moist mucosa Neck: supple, symmetric, no JVD, no thyromegaly, no lymphadenopathy Heart: RRR, no murmur, no gallops, no rubs, normal peripheral pulses Respiratory: CTAB, no wheezes, no rales, no ronchi, normal chest expansion Gastrointestinal: soft, non-tender, non-distended, normal bowel sounds Neurological - other findings: patient intubated, unable to fully examine his neuro status Psychiatric: somnolent, lethargic Hosp A/P (1) Splenic rupture Code(s): S36.09XA - OTHER INJURY OF SPLEEN, INITIAL ENCOUNTER Status: Suspected Plan: He is status post exploratory laparotomy splenectomy. Continue routine postop care. (2) Acute respiratory failure with hypoxia Code(s): J96.01 - ACUTE RESPIRATORY FAILURE WITH HYPOXIA Status: Acute Plan: He remains intubated and mechanically ventilated. (3) Acute worsening of stage 3 chronic kidney disease Code(s): N18.30 - CHRONIC KIDNEY DISEASE, STAGE 3 UNSPECIFIED Status: Acute Plan: Nephrology evaluation was obtained Defer to them about further evaluation. (4) Fever Code(s): R50.9 - FEVER, UNSPECIFIED Status: Acute Plan: Patient with fever with a T-max of 102.8. Concern about a potential of an infectious process. We will get a set of blood cultures. He had a UA that was abnormal and currently is not on any antibiotics. I would like to start him on Zosyn and will follow up on the culture data information. (5) CLL (chronic lymphocytic leukemia) Code(s): C91.10 - CHRONIC LYMPHOCYTIC LEUK OF B-CELL TYPE NOT ACHIEVE REMIS Status: Acute Plan: Outpatient follow-up with his oncologist. - Plan continue antibiotics, PT/OT, psychologist social, respiratory therapy, incentive spirometry, out of bed/ambulate, DVT proph w/lovenox Consults: Palliative Care
[2020-09-21] MEDS: Dronedarone HCl 400 MG TAB PO SCH (16:46)
[2020-09-21] MEDS: Piperacillin/Tazobactam 2.25 GM in Sodium Chloride 0.9% 100 ML IVPB SCH ×2 (17:15→23:42)
[2020-09-21] MEDS: Hydrocortisone Sod Succ/PF 100 mg/2 ml Vial IVP SCH ×2 (18:09→18:10)
[2020-09-21] MEDS ORDERED: Norepinephrine 8 MG/0.9% NS 250 ML IVPB SCH (20:30)
[2020-09-21] MEDS: Norepinephrine 8 MG in Dextrose 5% in Water 242 ML IVPB PRN (20:47)
[2020-09-21] MEDS ORDERED: Carvedilol 6.25 MG TAB PO SCH (21:00)
--- NOTE | 2020-09-21 21:13 | PRG ---
DATE OF SERVICE: 09/21/2020 SUBJECTIVE: Patient is postop day #1, status post spontaneous versus traumatic splenic rupture, massive splenomegaly, and acute blood loss anemia. Patient had an exploratory laparotomy and splenectomy. Patient is currently on full ventilatory support. Patient is sedated with fentanyl 25 mcg/hr and propofol 5 mcg/kg/min. Patient's urinary output has been minimal. Patient's blood pressure has also been on the soft side. LABORATORY DATA: WBC 5.8, RBC 3.60, hemoglobin 9.7, hematocrit 31.2, platelets 158. ASSESSMENT: 1. Postoperative day #1, splenectomy, spontaneous versus traumatic splenic rupture. 2. Massive splenomegaly. 3. Acute blood loss anemia, stable. PLAN: Continue full ventilatory support. Minimize sedation. We will give patient a fluid bolus 500 mL over an hour. We will panculture patient as he has a temp of 102. Continue to monitor strict I's and O's. CVP was 3-5. We will continue to monitor. Job ID: [id number] MTDD
[2020-09-21 22:42] LABS: Actual Bicarbonate (HCO3a) 23.7 mEq/L (22-28); Base Excess (BEa) 0.2 mEq/L (-2.0 to +3.0); CO2 Tension 33.6 mmHg (35.0-45.0); Calcium, Ionized (arterial) 1.11 mmol/L (1.12-1.30); Carboxyhemoglobin (COHb) 0.3 gm% (0.0-3.0); Hemoglobin (Hb) 9.3 g/dL (14.0-18.0); O2 Tension (PaO2), arterial 143.3 mmHg (> 60.0); Potassium - ABG Lab 4.46 mmol/L (3.70-5.30); pH, Arterial 7.47 (7.35-7.45)
[2020-09-21 22:43] LABS: Puncture Site Arterial Line
[2020-09-21 22:49] LABS: #Monocytes 0.3 thou/uL (0.11-0.59); #Neutrophils 7.8 thou/uL (1.40-6.50); %Basophils 0.3 % (0.0-1.0); %Eosinophils 0.1 % (0.0-10.0); %Monocytes 2.8 % (0.0-10.0); %Neutrophils 85.8 % (42.0-75.0); Hemoglobin 8.7 g/dL (14.0-18.0); Mean Corpuscular HGB CONC 30.6 g/dL (32.0-36.0); Mean Corpuscular Hemoglobin 24.3 pg (27.0-31.0); Mean Corpuscular Volume 79.5 fL (78.0-98.0); Mean Platelet Volume 11.5 fL (7.4-10.4); Platelet Count 160 thou/uL (130-400); RBC Distribution Width 17.9 % (11.5-14.5); Red Blood Cell (RBC) Count 3.59 mill/uL (4.70-6.10)
[2020-09-21 23:16] LABS: Anion Gap 16 mmol/L (10-20); BUN (Urea Nitrogen) 25 mg/dL (8.4-25.7); Calc. Creatinine Clearance 22 mL/min (70-130); Calcium 8.1 mg/dL (7.8-10.44); Carbon Dioxide 23 mmol/L (23-31); Chloride 111 mmol/L (98-107); Glucose 144 mg/dL (83-110); Magnesium 1.9 mg/dL (1.6-2.6); Potassium 4.7 mmol/L (3.5-5.1); Sodium 145 mmol/L (136-145)
[2020-09-21] MEDS ORDERED: Sodium Chloride 0.9% 500 ML IV SCH (23:30)
[2020-09-21] MEDS ORDERED: Magnesium 2 GM/50 ML 2 GM in Premix Bag 1 BAG IVPB SCH (23:45)
[2020-09-21] MEDS ORDERED: Calcium Chloride 1 GM/10 ML Abboject SYRINGE IVP SCH (23:45)
--- NOTE | 2020-09-21 23:52 | CON ---
DATE OF CONSULTATION: 09/20/2020 SURGEON: Dr. Penn. HISTORY OF PRESENT ILLNESS: The patient is an 80-year-old male who arrived to the emergency department from [place] [facility]. He has a history of CLL. He was previously admitted at the [facility] for AFib and congestive heart failure, recently diagnosed also with C diff and receiving antibiotics. Earlier in the morning, the patient had chest pain and presented to the emergency room in [place]. Upon CTA, there was concern for splenic rupture. Therefore, he was transferred to the [place] [facility]. Initially, there was concern that the patient's possible ruptured spleen was artifact, but upon further evaluation and hemodynamic compromise, it was decided to re-consult Surgery for operative intervention. REVIEW OF SYSTEMS: All additional 10-point review of systems negative except as indicated above. PAST MEDICAL HISTORY: AFib, CLL, soft tissue skin infections, bladder stones, CKD, hypothyroidism. PAST SURGICAL HISTORY: Left knee replacement. SOCIAL HISTORY: The patient is a previous smoker. He rarely drinks alcohol. There is no history of drug use. MEDICATIONS: Include: 1. Digoxin. 2. Diltiazem. 3. Eliquis. 4. Carvedilol. 5. Lasix. 6. Lisinopril. 7. Vitamin B. 8. Vitamin D3. 9. Levothyroxine. ALLERGIES: INCLUDE PENICILLIN, BACTRIM. PHYSICAL EXAMINATION: VITAL SIGNS: Temperature 98.8, pulse 90, respirations 16, oxygen saturation 95% on room air, blood pressure 100/55. GENERAL: Weak, ill-appearing male, lying in bed with no signs of acute distress. PULMONARY: Equal chest rise and fall. No signs of acute respiratory distress. CARDIAC: AFib, but regular rate. ABDOMEN: Soft, mildly tender to palpation, nondistended. EXTREMITIES: 2+ pulse in all extremities. Gross motor and sensation intact. Bilateral lower extremity swelling, which is chronic. NEUROLOGIC: GCS is 15. LABORATORY FINDINGS: White count 1.7, hemoglobin 7.1, hematocrit 22.5, platelets 107. INR 1.5, PTT 30.2, PT 18.1. Sodium 144, potassium 2.3, chloride 104, bicarb 25, BUN 20, creatinine 1.44, glucose 157. Troponin 0.068. DIAGNOSTIC FINDINGS: CT scan of the brain demonstrates no acute intracranial abnormality. CTA dissection completed in [place] demonstrates there is massive splenomegaly with splenic rupture and active bleeding. Large amount of hemoperitoneum is seen. No evidence of aortic dissection or aneurysm dilation. Bilateral pleural effusions with adjacent atelectasis. ASSESSMENT: 1. Spontaneous versus traumatic splenic rupture. 2. Massive splenomegaly. 3. Acute blood loss anemia. 4. Chest pain with [id number] myocardial infarction due to demand ischemia caused by volume loss. 5. Acute kidney injury, due to volume loss. 6. History of chronic lymphocytic leukemia, atrial fibrillation, congestive heart failure, C diff, acute kidney injury, and hypothyroidism. PLAN: The patient is to go urgently to the OR with Dr. Penn for ex-lap and splenectomy. Postoperatively, he will likely go to the ICU. The patient has also received packed cells and Kcentra in the emergency department. Job ID: [id number]
[2020-09-21] MEDS ORDERED: Sodium Phosphate 15 MMOL in Sodium Chloride 0.9% 250 ML 250 ML IVPB SCH (23:59)
--- NOTE | 2020-09-22 01:04 | PRG ---
DATE OF SERVICE: 09/21/2020 SUBJECTIVE: Patient was seen this evening during rounds. Nursing reported the patient becoming more hypotensive. The patient received additional fluid resuscitation. Continuous cardiac monitoring demonstrated the patient had good volume resuscitation and cardiac output. Levophed was started. OBJECTIVE: VITAL SIGNS: Temperature 102.7, heart rate 96, respirations 16, oxygen saturation 100% on the ventilator, blood pressure 107/35, with a MAP of 51. GENERAL: Ill-appearing elderly male, lying in bed, intubated and sedated with no signs of acute distress. PULMONARY: Equal chest rise and fall. Clear breath sounds bilaterally and diminished at the bases. No signs of acute respiratory distress. The patient is currently on the ventilator. ABDOMEN: Soft, nontender, nondistended. EXTREMITIES: 2+ pulses in all extremities. Gross motor and sensation intact. He has persistent pitting edema to his bilateral lower extremities which is chronic. NEUROLOGIC: GCS is 10-11T. LABORATORY FINDINGS: White count 9.0, hemoglobin 8.7, hematocrit 28.6, platelets 160. Sodium 145, potassium 4.7, chloride 111, bicarb 23, BUN 25, creatinine 2.05, glucose 144, phosphorus 3.0, magnesium 1.9, cortisol 27. ABG demonstrates a pH of 7.47, pCO2 of 33.6, pO2 of 143, bicarb 23.7, base excess of 0.2. DIAGNOSTIC FINDINGS: There are no new diagnostic findings to report. ASSESSMENT: 1. Status post splenic rupture, spontaneous versus traumatic. 2. [id number]-zqzjjliph myocardial infarction due to volume depletion, demand ischemia. 3. Acute kidney injury, worsening. 4. Sepsis, source currently unknown, pending cultures. 5. History of chronic lymphatic leukemia, atrial fibrillation, congestive heart failure, Clostridium difficile, chronic kidney disease and hypothyroidism. PLAN: Continue intubation and sedation overnight. Continue volume resuscitation. We will start the patient on Levophed now. Continue also with continuous cardiac monitoring. We are pending culture results from sputum, blood, and urine. He was changed to Ancef earlier today, we will continue that. Repeat blood work in the morning as well as chest x-ray. Job ID: [id number]
[2020-09-22] MEDS ORDERED: Acetaminophen 650 MG/20.3 ML UDCUP PO SCH (01:45)
[2020-09-22] MEDS: Acetaminophen 650 MG/20.3 ML UDCUP PO SCH ×4 (01:47→20:13)
[2020-09-22] MEDS: Vasopressin 20 UNIT, Admixture Fee 1 EACH in Sodium Chloride 0.9% 50 ML IV SCH ×3 (03:16→22:56)
[2020-09-22 03:56] LABS: #Lymphocytes 1.2 thou/uL (1.20-3.40); #Monocytes 0.3 thou/uL (0.11-0.59); #Neutrophils 7.9 thou/uL (1.40-6.50); %Basophils 0.1 % (0.0-1.0); %Eosinophils 0.2 % (0.0-10.0); %Lymphocytes 12.5 % (21.0-51.0); %Monocytes 3.2 % (0.0-10.0); Hemoglobin 8.7 g/dL (14.0-18.0); Mean Corpuscular HGB CONC 31.9 g/dL (32.0-36.0); Mean Corpuscular Hemoglobin 25.7 pg (27.0-31.0); Mean Corpuscular Volume 80.5 fL (78.0-98.0); Mean Platelet Volume 11.6 fL (7.4-10.4); Platelet Count 148 thou/uL (130-400); White Blood Cell (WBC) Count 9.4 thou/uL (4.8-10.8)
[2020-09-22] MEDS: Norepinephrine 8 MG in Dextrose 5% in Water 242 ML IVPB PRN ×2 (04:01→18:22)
[2020-09-22 04:14] LABS: Albumin 2.5 g/dL (3.4-4.8); Phosphorus 3.6 mg/dL (2.3-4.7)
[2020-09-22 04:15] LABS: Iron 8 ug/dL (65-175); Iron Binding Capacity, Total 105 mcg/dL (261-462)
[2020-09-22 04:23] LABS: Anion Gap 13 mmol/L (10-20); BUN (Urea Nitrogen) 28 mg/dL (8.4-25.7); Calc. Creatinine Clearance 21 mL/min (70-130); Calcium 8.4 mg/dL (7.8-10.44); Carbon Dioxide 24 mmol/L (23-31); Chloride 111 mmol/L (98-107); Glucose 193 mg/dL (83-110); Magnesium 2.3 mg/dL (1.6-2.6); Potassium 4.3 mmol/L (3.5-5.1); Sodium 144 mmol/L (136-145)
[2020-09-22] MEDS: Levothyroxine Sodium 50 MCG TAB PO SCH (05:47)
[2020-09-22] MEDS ORDERED: Furosemide 100 MG in Sodium Chloride 0.9% 100 ML IVPB SCH (07:15)
[2020-09-22] MEDS: Potassium Chloride 20 MEQ in Lactated Ringer's 1,000 ML IV SCH (07:35)
[2020-09-22] MEDS: Metolazone 2.5 MG TAB PO SCH (07:35)
[2020-09-22] MEDS: Dronedarone HCl 400 MG TAB PO SCH ×2 (07:37→16:33)
[2020-09-22 07:38] LABS: Actual Bicarbonate (HCO3a) 22.9 mEq/L (22-28); Base Excess (BEa) -0.9 mEq/L (-2.0 to +3.0); CO2 Tension 34.4 mmHg (35.0-45.0); Calcium, Ionized (arterial) 1.15 mmol/L (1.12-1.30); Carboxyhemoglobin (COHb) 0.3 gm% (0.0-3.0); Hemoglobin (Hb) 10.2 g/dL (14.0-18.0); O2 Tension (PaO2), arterial 139.4 mmHg (> 60.0); Potassium - ABG Lab 4.58 mmol/L (3.70-5.30); pH, Arterial 7.44 (7.35-7.45)
[2020-09-22 08:06] LABS: Puncture Site Arterial Line
[2020-09-22] MEDS: Digoxin 0.125 MG TAB PER TUBE SCH (08:31)
[2020-09-22] MEDS: Piperacillin/Tazobactam 2.25 GM in Sodium Chloride 0.9% 100 ML IVPB SCH ×2 (08:32→16:33)
--- NOTE | 2020-09-22 08:41 | RAD ---
EXAM: Chest one view: HISTORY: Respiratory insufficiency COMPARISON: 09/21/2020 FINDINGS: Tubes in place and stable Heart size: Minimal cardiomegaly. Lungs: Minimally progressive diffuse bilateral interstitial and alveolar opacity changes throughout b oth lungs particularly the mid and lower lung zones No evidence for pneumothorax. IMPRESSION: Stable cardiomegaly. Stable life-support tubes. Worsening bilateral interstitial and alveolar opacity changes throughout both lungs.
[2020-09-22] MEDS ORDERED: Albumin 25% 25 GM/100 ML BOT IVPB SCH (08:45)
[2020-09-22] MEDS ORDERED: Carvedilol 3.125 MG TAB PO SCH (09:00)
[2020-09-22 10:36] LABS: Creatinine, Urine 62.12 mg/dL (63-166)
[2020-09-22] MEDS: Iron, Sodium Ferric Gluconate 250 MG in Sodium Chloride 0.9% 100 ML IVPB SCH (11:17)
--- NOTE | 2020-09-22 12:44 | PDOC.NEPPN ---
- Subjective Encounter Date: 09/22/20 Subjective: Seen in follow up for KAYLENE. Off IVF and on diuretic therapy as per trauma team due to generalized edema. Now on vasopressin and levophed. Still intubated and mechanically ventilated - Objective Vital Signs & Weight: Vital Signs (12 hours) Temp Pulse Resp BP Pulse Ox 09/22/20 12:00 14 09/22/20 10:31 58 L 09/22/20 10:00 14 09/22/20 08:31 85 104/61 09/22/20 08:07 97 09/22/20 08:00 14 09/22/20 07:13 100 09/22/20 06:00 14 09/22/20 05:00 99.3 F 09/22/20 04:00 11 L 09/22/20 03:00 103.3 F H 09/22/20 02:17 99.5 F 09/22/20 02:00 103.2 F H 13 09/22/20 01:47 103.2 F H Weight Admit Weight 157 lb 3.2 oz Weight 121 lb 6.4 oz Most Recent Monitor Data Heart Rate from ECG 74 NIBP 110/51 NIBP BP-Mean 70 Respiration from ECG 16 SpO2 100 I&O: 09/21/20 09/22/20 09/23/20 06:59 06:59 06:59 Intake Total 3081.2 6363 60 Output Total 515 755 490 Balance 2566.2 5608 -430 Result Diagrams: 09/22/20 03:15 09/22/20 03:15 Nephrology ROS - Medication Medications: Active Medications Generic Name Dose Route Start Last Admin Trade Name Isaiahq PRN Reason Stop Dose Admin Acetaminophen 650 mg 09/22/20 01:45 09/22/20 07:37 Acetaminophen 650 Mg/20.3 Ml Udcup PO 650 mg Q6H SIMA Administration Digoxin 0.125 mg 09/22/20 09:00 09/22/20 08:31 Digoxin 0.125 Mg Tab PER TUBE 0.125 mg DAILY SIMA Administration Diltiazem HCl 240 mg 09/22/20 09:00 09/22/20 08:31 Diltiazem Hcl Cd 240 Mg Capsule PO 240 mg DAILY SIMA Administration Dronedarone 400 mg 09/21/20 17:00 09/22/20 07:37 Dronedarone Hcl 400 Mg Tab PO 400 mg BID-WM SIMA Administration Cefazolin Sodium/Dextrose 2 gm 50 mls @ 100 mls/hr 09/20/20 17:00 09/21/20 06:00 / Device IVPB 50 mls ONCALL-OR SIMA Administration Fentanyl Citrate 2,000 mcg/ 100 mls @ 0 mls/hr 09/20/20 20:45 09/20/20 22:05 Sodium Chloride IV 10/20/20 20:45 100 mls INF SIMA Administration Protocol Per Protocol Piperacillin Sod/Tazobactam 100 mls @ 200 mls/hr 09/21/20 17:00 09/22/20 08:32 Sod 2.25 gm/ Sodium Chloride IVPB 100 mls 0100,0900,1700 SIMA Administration Norepinephrine Bitartrate 8 mg 250 mls @ 0 mls/hr 09/21/20 20:30 09/22/20 04:01 / Dextrose/Water IVPB 250 mls INF PRN Administration TO MAINTAIN MAP > 65 Protocol As Directed Vasopressin 20 unit/ 51 mls @ 0 mls/hr 09/22/20 03:15 09/22/20 03:16 Miscellaneous Medication 1 IV 51 mls each/ Sodium Chloride INF SIMA Administration Protocol As Directed Furosemide 100 mg/ Sodium 110 mls @ 3.3 mls/hr 09/22/20 07:15 09/22/20 07:35 Chloride IVPB 110 mls INF SIMA Administration 3 MG/HR Ferric Sodium Gluconate 120 mls @ 60 mls/hr 09/22/20 11:00 09/22/20 11:17 Complex 250 mg/ Sodium IVPB 09/24/20 12:59 120 mls Chloride Q24HR SIMA Administration Levothyroxine Sodium 50 mcg 09/22/20 06:00 09/22/20 05:47 Levothyroxine Sodium 50 Mcg Tab PO 50 mcg 0600 SIMA Administration Metolazone 2.5 mg 09/22/20 08:30 09/22/20 07:35 Metolazone 2.5 Mg Tab PO 2.5 mg 0830 SIMA Administration Sodium Chloride 10 ml 09/21/20 09:00 09/22/20 08:32 Flush - Normal Saline 10 Ml Syringe IVF 10 ml Q12HR SIMA Administration - Exam General - other findings: unresponsive. ENT: normocephalic atraumatic ENT - other findings: ET tube in place Respiratory - other findings: Ventilator transmitted sound noted Cardiovascular: irregular Gastrointestinal: non-distended Gastrointestinal - other findings: surgical wound noted. Extremities - other findings: mild to moderate edema of the extremities noted. Neurological - other findings: unresponsive Nephrology Results - Labs Result Diagrams: 09/22/20 03:15 09/22/20 03:15 Lab results: WBC 9.4 thou/uL (4.8-10.8) 09/22/20 03:15 Hgb 8.7 g/dL (14.0-18.0) L 09/22/20 03:15 Hct 27.4 % (42.0-52.0) L 09/22/20 03:15 MCV 80.5 fL (78.0-98.0) 09/22/20 03:15 Plt Count 148 thou/uL (130-400) 09/22/20 03:15 Neutrophils % 84.0 % (42.0-75.0) H 09/22/20 03:15 Band Neuts % (Manual) 48 % (5-11) H 09/21/20 04:30 ABG pH 7.44 (7.35-7.45) 09/22/20 07:29 ABG pCO2 34.4 mmHg (35.0-45.0) L 09/22/20 07:29 ABG pO2 139.4 mmHg (> 60.0) H 09/22/20 07:29 Sodium 144 mmol/L (136-145) 09/22/20 03:15 Potassium 4.3 mmol/L (3.5-5.1) 09/22/20 03:15 Chloride 111 mmol/L (98-107) H 09/22/20 03:15 Carbon Dioxide 24 mmol/L (23-31) 09/22/20 03:15 BUN 28 mg/dL (8.4-25.7) H 09/22/20 03:15 Creatinine 2.07 mg/dL (0.7-1.3) H 09/22/20 03:15 Glucose 193 mg/dL (83-110) H 09/22/20 03:15 Lactic Acid 1.8 mmol/L (0.5-2.2) 09/21/20 04:30 Calcium 8.4 mg/dL (7.8-10.44) 09/22/20 03:15 CK-MB (CK-2) 0.7 ng/mL (0-6.6) 09/20/20 06:54 Troponin I 0.068 ng/mL (< 0.028) H 09/20/20 13:16 C-Reactive Protein 11.97 mg/dL (= or < 0.5) H 09/21/20 17:21 B-Natriuretic Peptide 433.6 pg/mL (0-100) H 09/21/20 09:48 Albumin 2.5 g/dL (3.4-4.8) L 09/22/20 03:15 Urine Ketones 10 mg/dL (Negative) A 09/21/20 01:00 Urine Blood 3+ (Negative) A 09/21/20 01:00 Urine Nitrite Negative (Negative) 09/21/20 01:00 Ur Leukocyte Esterase 250 Radha/uL (Negative) A 09/21/20 01:00 Urine RBC Greater than 50 HPF (0-3) A 09/21/20 01:00 Urine WBC 11-20 HPF (0-3) A 09/21/20 01:00 Ur Squamous Epith Cells None Seen HPF (0-3) 09/21/20 01:00 Urine Bacteria None Seen HPF (None Seen) 09/21/20 01:00 Sodium 144 mmol/L (136-145) 09/22/20 03:15 Potassium 4.3 mmol/L (3.5-5.1) 09/22/20 03:15 Chloride 111 mmol/L (98-107) H 09/22/20 03:15 Carbon Dioxide 24 mmol/L (23-31) 09/22/20 03:15 Anion Gap 13 mmol/L (10-20) 09/22/20 03:15 BUN 28 mg/dL (8.4-25.7) H 09/22/20 03:15 Creatinine 2.07 mg/dL (0.7-1.3) H 09/22/20 03:15 Glucose 193 mg/dL (83-110) H 09/22/20 03:15 Calcium 8.4 mg/dL (7.8-10.44) 09/22/20 03:15 Phosphorus 3.6 mg/dL (2.3-4.7) 09/22/20 03:15 Magnesium 2.3 mg/dL (1.6-2.6) 09/22/20 03:15 Albumin 2.5 g/dL (3.4-4.8) L 09/22/20 03:15 Nephrology AP PN - Plan KAYLENE: Due to hemodynamic factors related to volume depletion from acute hemorrhage. Superimposed acute CHF from aggressive fluid resuscitation cannot be ruled out. Acute blood loss anemia Poassible cardiorenal syndrome. CKD stage 3. Metabolic alkalosis: Due to intravascular contraction. Improved. Hypokalemia. repleted. 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 Agree with trial of diuretic therapy discontinuutaion of IVF due to edema. Vasopressor support as needed Recommend albumin to facilitate diuresis as needed Monitor renal function and electrolytes and replete as indicated.
[2020-09-22 15:02] LABS: Phosphorus 4.2 mg/dL (2.3-4.7)
[2020-09-22 15:03] LABS: Albumin 2.6 g/dL (3.4-4.8); Anion Gap 14 mmol/L (10-20); BUN (Urea Nitrogen) 29 mg/dL (8.4-25.7); Calc. Creatinine Clearance 22 mL/min (70-130); Calcium 7.9 mg/dL (7.8-10.44); Carbon Dioxide 24 mmol/L (23-31); Chloride 110 mmol/L (98-107); Glucose 164 mg/dL (83-110); Magnesium 2.1 mg/dL (1.6-2.6); Phosphorus 4.2 mg/dL (2.3-4.7); Potassium 4.2 mmol/L (3.5-5.1); Sodium 144 mmol/L (136-145)
[2020-09-22 15:19] LABS: Actual Bicarbonate (HCO3a) 24.7 mEq/L (22-28); Base Excess (BEa) 0.5 mEq/L (-2.0 to +3.0); CO2 Tension 37.8 mmHg (35.0-45.0); Calcium, Ionized (arterial) 1.11 mmol/L (1.12-1.30); Carboxyhemoglobin (COHb) 0.6 gm% (0.0-3.0); Hemoglobin (Hb) 7.9 g/dL (14.0-18.0); O2 Tension (PaO2), arterial 110.6 mmHg (> 60.0); Potassium - ABG Lab 4.11 mmol/L (3.70-5.30); pH, Arterial 7.43 (7.35-7.45)
[2020-09-22 15:44] LABS: Anion Gap 13 mmol/L (10-20); BUN (Urea Nitrogen) 28 mg/dL (8.4-25.7); Calc. Creatinine Clearance 22 mL/min (70-130); Calcium 7.7 mg/dL (7.8-10.44); Carbon Dioxide 24 mmol/L (23-31); Chloride 109 mmol/L (98-107); Glucose 165 mg/dL (83-110); Potassium 4.2 mmol/L (3.5-5.1); Sodium 142 mmol/L (136-145)
[2020-09-22 15:46] LABS: Puncture Site Arterial Line
--- NOTE | 2020-09-22 15:49 | PDOC.HOSPP ---
- Subjective Encounter Date: 09/22/20 Encounter Time: 15:43 Subjective: Mr. Villalba is an 80-year-old patient who was admitted from outside hospital where he was found to have ruptured spleen. He underwent nephrectomy here and has remained intubated. He continues to be febrile and a set of blood cultures were collected yesterday and antibiotic were initiated. So far the cultures has not shown any growth. He is now on vasopressors for what could be likely septic shock versus hemorrhagic shock. No family at the bedside when I visited. He has since developed acute kidney injury likely in the context of volume depletion related to the surgery. The patient renal function appears to be worsening. We do appreciate nephrology for the ongoing evaluations. - Objective Vital Signs & Weight: Vital Signs (12 hours) Temp Pulse Resp BP Pulse Ox 09/22/20 14:42 71 09/22/20 14:00 11 L 09/22/20 12:00 14 09/22/20 10:31 58 L 09/22/20 10:00 14 09/22/20 08:31 85 104/61 09/22/20 08:07 97 09/22/20 08:00 14 09/22/20 07:13 100 09/22/20 06:00 14 09/22/20 05:00 99.3 F 09/22/20 04:00 11 L Weight Admit Weight 157 lb 3.2 oz Weight 121 lb 6.4 oz Most Recent Monitor Data Heart Rate from ECG 77 NIBP 115/50 NIBP BP-Mean 71 Respiration from ECG 7 SpO2 98 I&O: 09/21/20 09/22/20 09/23/20 06:59 06:59 06:59 Intake Total 3081.2 6363 60 Output Total 757 635 9747 Balance 2566.2 8772 -9383 Result Diagrams: 09/22/20 03:15 09/22/20 14:31 Radiology Reviewed by me: Yes EKG Reviewed by me: Yes Hospitalist ROS - Review of Systems ROS unobtainable: due to endotracheal tube Constitutional: reports: weakness, malaise Eyes: reports: pain Neurological: reports: weakness, numbness, incoordination, change in speech - Medication Medications: Active Medications Generic Name Dose Route Start Last Admin Trade Name Freq PRN Reason Stop Dose Admin Acetaminophen 650 mg 09/22/20 01:45 09/22/20 12:55 Acetaminophen 650 Mg/20.3 Ml Udcup PO 650 mg Q6H SIMA Administration Digoxin 0.125 mg 09/22/20 09:00 09/22/20 08:31 Digoxin 0.125 Mg Tab PER TUBE 0.125 mg DAILY SIMA Administration Diltiazem HCl 240 mg 09/22/20 09:00 09/22/20 08:31 Diltiazem Hcl Cd 240 Mg Capsule PO 240 mg DAILY SIMA Administration Dronedarone 400 mg 09/21/20 17:00 09/22/20 07:37 Dronedarone Hcl 400 Mg Tab PO 400 mg BID-WM SIMA Administration Cefazolin Sodium/Dextrose 2 gm 50 mls @ 100 mls/hr 09/20/20 17:00 09/21/20 06:00 / Device IVPB 50 mls ONCALL-OR SIMA Administration Fentanyl Citrate 2,000 mcg/ 100 mls @ 0 mls/hr 09/20/20 20:45 09/20/20 22:05 Sodium Chloride IV 10/20/20 20:45 100 mls INF SIMA Administration Protocol Per Protocol Piperacillin Sod/Tazobactam 100 mls @ 200 mls/hr 09/21/20 17:00 09/22/20 08:32 Sod 2.25 gm/ Sodium Chloride IVPB 100 mls 0100,0900,1700 SIMA Administration Norepinephrine Bitartrate 8 mg 250 mls @ 0 mls/hr 09/21/20 20:30 09/22/20 04:01 / Dextrose/Water IVPB 250 mls INF PRN Administration TO MAINTAIN MAP > 65 Protocol As Directed Vasopressin 20 unit/ 51 mls @ 0 mls/hr 09/22/20 03:15 09/22/20 12:55 Miscellaneous Medication 1 IV 51 mls each/ Sodium Chloride INF SIMA Administration Protocol As Directed Furosemide 100 mg/ Sodium 110 mls @ 3.3 mls/hr 09/22/20 07:15 09/22/20 07:35 Chloride IVPB 110 mls INF SIMA Administration 3 MG/HR Ferric Sodium Gluconate 120 mls @ 60 mls/hr 09/22/20 11:00 09/22/20 11:17 Complex 250 mg/ Sodium IVPB 09/24/20 12:59 120 mls Chloride Q24HR SIMA Administration Levothyroxine Sodium 50 mcg 09/22/20 06:00 09/22/20 05:47 Levothyroxine Sodium 50 Mcg Tab PO 50 mcg 0600 SIMA Administration Metolazone 2.5 mg 09/22/20 08:30 09/22/20 07:35 Metolazone 2.5 Mg Tab PO 2.5 mg 0830 SIMA Administration Sodium Chloride 10 ml 09/21/20 09:00 09/22/20 08:32 Flush - Normal Saline 10 Ml Syringe IVF 10 ml Q12HR SIMA Administration - Exam General Appearance: awake alert Eye: PERRL, anicteric sclera ENT: dry oral mucosa Neck: supple, symmetric, no JVD Heart: RRR, no murmur, no gallops, no rubs, normal peripheral pulses Respiratory: CTAB, no wheezes, no rales Gastrointestinal: soft, non-tender, non-distended, normal bowel sounds Extremities: no cyanosis, no clubbing Skin: normal turgor, no lesions Neurological - other findings: unable to examine as he is intubated Psychiatric: somnolent, lethargic Hosp A/P (1) Splenic rupture Code(s): S36.09XA - OTHER INJURY OF SPLEEN, INITIAL ENCOUNTER Status: Suspected (2) Acute respiratory failure with hypoxia Code(s): J96.01 - ACUTE RESPIRATORY FAILURE WITH HYPOXIA Status: Acute (3) Acute worsening of stage 3 chronic kidney disease Code(s): N18.30 - CHRONIC KIDNEY DISEASE, STAGE 3 UNSPECIFIED Status: Acute (4) Fever Code(s): R50.9 - FEVER, UNSPECIFIED Status: Acute (5) CLL (chronic lymphocytic leukemia) Code(s): C91.10 - CHRONIC LYMPHOCYTIC LEUK OF B-CELL TYPE NOT ACHIEVE REMIS Status: Acute - Plan old records reviewed/req, plan discussed w/ family, continue antibiotics, PT/OT, respiratory therapy, DVT proph w/lovenox #1. Acute respiratory failure with hypoxia. He remains intubated and mechanically ventilated. We appreciate pulmonary services. I will defer to them about weaning. 2. Suspected traumatic splenic rupture. He is status post splenectomy. 3. Shock; suspected sepsis versus hypovolemic. He is now on vasopressors. Cultures are collected and are still cooking. He is empirically on IV Zosyn. We will follow up on all the active cultures. His urine analysis was abnormal with positive leukocyte esterases but no nitrite. The urine culture however has remained negative to date. Blood cultures are also negative. 4. Acute kidney injury. This seems to have worsened some. We appreciate nephrology for the ongoing evaluations. #5. History of CLL.
[2020-09-22] MEDS ORDERED: Calcium Chloride 13.6 MEQ in Sodium Chloride 0.9% 100 ML IVPB SCH (16:00)
[2020-09-23] MEDS: Acetaminophen 650 MG/20.3 ML UDCUP PO SCH ×4 (01:03→19:40)
[2020-09-23] MEDS: Piperacillin/Tazobactam 2.25 GM in Sodium Chloride 0.9% 100 ML IVPB SCH ×2 (01:04→08:11)
--- NOTE | 2020-09-23 02:34 | PRG ---
DATE OF SERVICE: 09/22/2020 SUBJECTIVE: The patient was seen this evening during rounds. He is lying in bed, intubated. He has no sedation. He is comfortable with his eyes open. He is awake and alert and follows commands. There are no signs of acute distress. OBJECTIVE: VITAL SIGNS: Temperature 99.4, pulse 77, respirations 24, oxygen saturation 100% on the ventilator, and blood pressure 128/52. GENERAL: Elderly male, lying in bed, intubated with no signs of acute distress. PULMONARY: Equal chest rise and fall. Clear breath sounds bilaterally and slightly diminished at the bases. The patient is currently on the ventilator. No signs of acute respiratory distress. CARDIAC: Irregular rate and rhythm. ABDOMEN: Soft, nontender, and nondistended. Midline abdominal wound is clean, dry, and intact. EXTREMITIES: 2+ pulses in all extremities. Gross motor and sensation intact. Bilateral lower extremity edema is chronic, but improved. NEUROLOGIC: GCS is 11T. ASSESSMENT: 1. Status post splenic rupture, spontaneous versus traumatic. 2. Non-ST elevation myocardial infarction due to volume depletion, demand ischemia. 3. Acute kidney injury, stable. 4. Sepsis, stable, etiology unknown. 5. History of chronic lymphocytic leukemia. 6. Atrial fibrillation. 7. Congestive heart failure. 8. Recent Clostridium difficile. 9. Chronic kidney disease. 10. Hypothyroidism. PLAN: Continue current intubation, pain medications with fentanyl drip p.r.n. Continue Lasix drip at 1 mg an hour and Zaroxolyn. Continue to monitor urinary output and hemodynamics. Continue IV antibiotics. Monitor for return of bowel function. Trauma Team to see the patient in the morning. Job ID: [id number]
[2020-09-23] MEDS: Levothyroxine Sodium 50 MCG TAB PO SCH (05:09)
[2020-09-23 06:32] LABS: #Eosinphils 0.1 thou/uL (0.0-0.7); #Lymphocytes 1.7 thou/uL (1.20-3.40); #Monocytes 0.5 thou/uL (0.11-0.59); #Neutrophils 11.7 thou/uL (1.40-6.50); %Basophils 0.2 % (0.0-1.0); %Eosinophils 0.9 % (0.0-10.0); %Lymphocytes 11.9 % (21.0-51.0); %Monocytes 3.2 % (0.0-10.0); %Neutrophils 83.8 % (42.0-75.0); Hemoglobin 7.8 g/dL (14.0-18.0); Mean Corpuscular HGB CONC 30.9 g/dL (32.0-36.0); Mean Corpuscular Hemoglobin 24.4 pg (27.0-31.0); Mean Corpuscular Volume 78.9 fL (78.0-98.0); Mean Platelet Volume 9.3 fL (7.4-10.4); Platelet Count 137 thou/uL (130-400); RBC Distribution Width 17.6 % (11.5-14.5); Red Blood Cell (RBC) Count 3.21 mill/uL (4.70-6.10); White Blood Cell (WBC) Count 13.9 thou/uL (4.8-10.8)
[2020-09-23 06:33] LABS: Phosphorus 3.7 mg/dL (2.3-4.7)
[2020-09-23 06:34] LABS: Anion Gap 14 mmol/L (10-20); BUN (Urea Nitrogen) 31 mg/dL (8.4-25.7); Carbon Dioxide 25 mmol/L (23-31); Chloride 108 mmol/L (98-107); Potassium 3.9 mmol/L (3.5-5.1); Sodium 143 mmol/L (136-145)
[2020-09-23 06:35] LABS: Calc. Creatinine Clearance 23 mL/min (70-130); Calcium 8.2 mg/dL (7.8-10.44); Glucose 158 mg/dL (83-110); Magnesium 1.8 mg/dL (1.6-2.6)
[2020-09-23 07:28] LABS: Actual Bicarbonate (HCO3a) 22.2 mEq/L (22-28); Base Excess (BEa) -0.4 mEq/L (-2.0 to +3.0); CO2 Tension 28.8 mmHg (35.0-45.0); Calcium, Ionized (arterial) 1.15 mmol/L (1.12-1.30); Carboxyhemoglobin (COHb) 0.7 gm% (0.0-3.0); Hemoglobin (Hb) 8.7 g/dL (14.0-18.0); O2 Tension (PaO2), arterial 145.9 mmHg (> 60.0); Potassium - ABG Lab 3.91 mmol/L (3.70-5.30); pH, Arterial 7.51 (7.35-7.45)
--- NOTE | 2020-09-23 08:09 | RAD ---
PORTABLE CHEST: HISTORY: Pneumonia. CCU followup on ventilator. COMPARISON: 09/22/2020. FINDINGS/IMPRESSION: ET tube, NG tube, and central line unchanged. Small effusions and bibasilar atelectasis similar in a ppearance. Mid and upper lung vela appear clear. POS: AGW
[2020-09-23 08:31] LABS: Puncture Site Arterial Line
[2020-09-23 08:51] LABS: Digoxin 0.98 ng/mL (0.8-2.0)
--- NOTE | 2020-09-23 09:19 | PDOC.NEPPN ---
- Subjective Encounter Date: 09/23/20 Subjective: Still intubated and mechanically ventilated. Also still on pressors. - Objective Vital Signs & Weight: Vital Signs (12 hours) Temp Pulse Resp BP 09/23/20 08:00 14 09/23/20 07:12 100 142/51 H 09/23/20 06:00 24 H 09/23/20 04:00 14 09/23/20 02:00 17 09/23/20 01:33 98.6 F 09/23/20 01:03 99.6 F 09/23/20 00:00 25 H 09/22/20 22:00 12 Weight Admit Weight 157 lb 3.2 oz Weight 121 lb 6.4 oz Most Recent Monitor Data Heart Rate from ECG 66 NIBP 99/53 NIBP BP-Mean 68 Respiration from ECG 11 SpO2 100 I&O: 09/22/20 09/23/20 09/24/20 06:59 06:59 06:59 Intake Total 6363 2566.7 Output Total 755 3505 400 Balance 5608 -938.3 -400 Result Diagrams: 09/23/20 05:45 09/23/20 05:45 Nephrology ROS - Medication Medications: Active Medications Generic Name Dose Route Start Last Admin Trade Name Freq PRN Reason Stop Dose Admin Acetaminophen 650 mg 09/22/20 01:45 09/23/20 08:08 Acetaminophen 650 Mg/20.3 Ml Udcup PO 650 mg Q6H SIMA Administration Digoxin 0.125 mg 09/22/20 09:00 09/22/20 08:31 Digoxin 0.125 Mg Tab PER TUBE 0.125 mg DAILY SIMA Administration Dronedarone 400 mg 09/21/20 17:00 09/22/20 16:33 Dronedarone Hcl 400 Mg Tab PO 400 mg BID-WM SIMA Administration Fentanyl Citrate 2,000 mcg/ 100 mls @ 0 mls/hr 09/20/20 20:45 09/20/20 22:05 Sodium Chloride IV 10/20/20 20:45 100 mls INF SIMA Administration Protocol Per Protocol Piperacillin Sod/Tazobactam 100 mls @ 200 mls/hr 09/21/20 17:00 09/23/20 08:11 Sod 2.25 gm/ Sodium Chloride IVPB 100 mls 0100,0900,1700 SIMA Administration Norepinephrine Bitartrate 8 mg 250 mls @ 0 mls/hr 09/21/20 20:30 09/22/20 18:22 / Dextrose/Water IVPB 250 mls INF PRN Administration TO MAINTAIN MAP > 65 Protocol As Directed Vasopressin 20 unit/ 51 mls @ 0 mls/hr 09/22/20 03:15 09/22/20 22:56 Miscellaneous Medication 1 IV 51 mls each/ Sodium Chloride INF SIMA Administration Protocol As Directed Furosemide 100 mg/ Sodium 110 mls @ 3.3 mls/hr 09/22/20 07:15 09/22/20 07:35 Chloride IVPB 110 mls INF SIMA Administration 3 MG/HR Ferric Sodium Gluconate 120 mls @ 60 mls/hr 09/22/20 11:00 09/22/20 11:17 Complex 250 mg/ Sodium IVPB 09/24/20 12:59 120 mls Chloride Q24HR SIMA Administration Levothyroxine Sodium 50 mcg 09/22/20 06:00 09/23/20 05:09 Levothyroxine Sodium 50 Mcg Tab PO 50 mcg 0600 SIMA Administration Metolazone 2.5 mg 09/22/20 08:30 09/22/20 07:35 Metolazone 2.5 Mg Tab PO 2.5 mg 0830 SIMA Administration Sodium Chloride 10 ml 09/21/20 09:00 09/23/20 08:34 Flush - Normal Saline 10 Ml Syringe IVF 10 ml Q12HR SIMA Administration - Exam General - other findings: somnolent ENT: normocephalic atraumatic ENT - other findings: ET tunbe in situ Respiratory - other findings: ventilators transmitted sound heard in all lung zones Cardiovascular: irregular Gastrointestinal - other findings: surgical wound noted. Tsai catheter in situ. Extremities - other findings: mild to moderate edema of the extremities noted Neurological - other findings: somnolent. attempting to wake up with stimulation Nephrology Results - Labs Result Diagrams: 09/23/20 05:45 09/23/20 05:45 Lab results: WBC 13.9 thou/uL (4.8-10.8) H 09/23/20 05:45 Hgb 7.8 g/dL (14.0-18.0) L 09/23/20 05:45 Hct 25.3 % (42.0-52.0) L 09/23/20 05:45 MCV 78.9 fL (78.0-98.0) 09/23/20 05:45 Plt Count 137 thou/uL (130-400) 09/23/20 05:45 Neutrophils % 83.8 % (42.0-75.0) H 09/23/20 05:45 Band Neuts % (Manual) 48 % (5-11) H 09/21/20 04:30 ABG pH 7.51 (7.35-7.45) H 09/23/20 07:20 ABG pCO2 28.8 mmHg (35.0-45.0) L 09/23/20 07:20 ABG pO2 145.9 mmHg (> 60.0) H 09/23/20 07:20 Sodium 143 mmol/L (136-145) 09/23/20 05:45 Potassium 3.9 mmol/L (3.5-5.1) 09/23/20 05:45 Chloride 108 mmol/L (98-107) H 09/23/20 05:45 Carbon Dioxide 25 mmol/L (23-31) 09/23/20 05:45 BUN 31 mg/dL (8.4-25.7) H 09/23/20 05:45 Creatinine 1.90 mg/dL (0.7-1.3) H 09/23/20 05:45 Glucose 158 mg/dL (83-110) H 09/23/20 05:45 Lactic Acid 1.8 mmol/L (0.5-2.2) 09/21/20 04:30 Calcium 8.2 mg/dL (7.8-10.44) 09/23/20 05:45 CK-MB (CK-2) 0.7 ng/mL (0-6.6) 09/20/20 06:54 Troponin I 0.068 ng/mL (< 0.028) H 09/20/20 13:16 C-Reactive Protein 11.97 mg/dL (= or < 0.5) H 09/21/20 17:21 B-Natriuretic Peptide 433.6 pg/mL (0-100) H 09/21/20 09:48 Albumin 2.6 g/dL (3.4-4.8) L 09/23/20 05:40 Urine Ketones 10 mg/dL (Negative) A 09/21/20 01:00 Urine Blood 3+ (Negative) A 09/21/20 01:00 Urine Nitrite Negative (Negative) 09/21/20 01:00 Ur Leukocyte Esterase 250 Radha/uL (Negative) A 09/21/20 01:00 Urine RBC Greater than 50 HPF (0-3) A 09/21/20 01:00 Urine WBC 11-20 HPF (0-3) A 09/21/20 01:00 Ur Squamous Epith Cells None Seen HPF (0-3) 09/21/20 01:00 Urine Bacteria None Seen HPF (None Seen) 09/21/20 01:00 Sodium 143 mmol/L (136-145) 09/23/20 05:45 Potassium 3.9 mmol/L (3.5-5.1) 09/23/20 05:45 Chloride 108 mmol/L (98-107) H 09/23/20 05:45 Carbon Dioxide 25 mmol/L (23-31) 09/23/20 05:45 Anion Gap 14 mmol/L (10-20) 09/23/20 05:45 BUN 31 mg/dL (8.4-25.7) H 09/23/20 05:45 Creatinine 1.90 mg/dL (0.7-1.3) H 09/23/20 05:45 Glucose 158 mg/dL (83-110) H 09/23/20 05:45 Calcium 8.2 mg/dL (7.8-10.44) 09/23/20 05:45 Phosphorus 3.7 mg/dL (2.3-4.7) 09/23/20 05:45 Magnesium 1.8 mg/dL (1.6-2.6) 09/23/20 05:45 Albumin 2.6 g/dL (3.4-4.8) L 09/23/20 05:40 Nephrology AP PN - Plan KAYLENE: Due to hemodynamic factors related to volume depletion from acute hemorrhage with superimposed cardiorenal due to acute CHF fluid resuscitation and atrial fibrillation. CKD stage 3 Metabolic alkalosis: Due to intravascular contraction. Resolved Hypokalemia. repleted. Hypoalbuminemia Generalized edema Acute blood loss anemia Cardiorenal syndrome. 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 Monitor renal function and electrolytes and replete as indicated. Other treatment as per Trauma team.
[2020-09-23] MEDS: Metolazone 2.5 MG TAB PO SCH (10:08)
[2020-09-23] MEDS: Vasopressin 20 UNIT, Admixture Fee 1 EACH in Sodium Chloride 0.9% 50 ML IV SCH (10:24)
[2020-09-23] MEDS: Dronedarone HCl 400 MG TAB PO SCH ×2 (10:35→17:32)
[2020-09-23] MEDS: Digoxin 0.125 MG TAB PER TUBE SCH (10:42)
[2020-09-23] MEDS: Iron, Sodium Ferric Gluconate 250 MG in Sodium Chloride 0.9% 100 ML IVPB SCH (12:40)
--- NOTE | 2020-09-23 12:57 | PDOC.HOSPP ---
- Subjective Encounter Date: 09/23/20 Encounter Time: 12:56 Subjective: Mr. Villalba was extubated earlier this morning. He is on O2 nasal cannula and seems to be doing really well. This is an 80-year-old who underwent splenectomy for acute splenic rupture. He had fevers earlier and cultures were collected but no growth from that. He is slightly anemic this morning with a hemoglobin of 7.8. We will consider transfusion should this go below 7. His creatinine appears to be improving as well. I am going to continue antibiotic. - Objective Vital Signs & Weight: Vital Signs (12 hours) Temp Pulse Resp BP 09/23/20 12:00 98.7 F 09/23/20 10:42 100 09/23/20 08:00 14 09/23/20 07:12 100 142/51 H 09/23/20 06:00 24 H 09/23/20 04:00 14 09/23/20 02:00 17 09/23/20 01:33 98.6 F 09/23/20 01:03 99.6 F Weight Admit Weight 157 lb 3.2 oz Weight 121 lb 6.4 oz Most Recent Monitor Data Heart Rate from ECG 84 NIBP 123/73 NIBP BP-Mean 89 Respiration from ECG 18 SpO2 100 I&O: 09/22/20 09/23/20 09/24/20 06:59 06:59 06:59 Intake Total 6363 2566.7 3.6 Output Total 755 3505 1015 Balance 5608 -938.3 -1011.4 Result Diagrams: 09/23/20 05:45 09/23/20 05:45 Radiology Reviewed by me: Yes EKG Reviewed by me: Yes Hospitalist ROS - Review of Systems ROS unobtainable: due to mental status Constitutional: reports: weakness, malaise Respiratory: reports: shortness of breath, SOB with excertion Gastrointestinal: reports: nausea Neurological: reports: weakness, change in speech - Medication Medications: Active Medications Generic Name Dose Route Start Last Admin Trade Name Freq PRN Reason Stop Dose Admin Acetaminophen 650 mg 09/22/20 01:45 09/23/20 08:08 Acetaminophen 650 Mg/20.3 Ml Udcup PO 650 mg Q6H SIMA Administration Digoxin 0.125 mg 09/22/20 09:00 09/23/20 10:42 Digoxin 0.125 Mg Tab PER TUBE 0.125 mg DAILY SIMA Administration Dronedarone 400 mg 09/21/20 17:00 09/23/20 10:35 Dronedarone Hcl 400 Mg Tab PO Not Given BID-WM SIMA Piperacillin Sod/Tazobactam 100 mls @ 200 mls/hr 09/21/20 17:00 09/23/20 0 8:11 Sod 2.25 gm/ Sodium Chloride IVPB 100 mls 0100,0900,1700 SIMA Administration Norepinephrine Bitartrate 8 mg 250 mls @ 0 mls/hr 09/21/20 20:30 09/22/20 18:22 / Dextrose/Water IVPB 250 mls INF PRN Administration TO MAINTAIN MAP > 65 Protocol As Directed Vasopressin 20 unit/ 51 mls @ 0 mls/hr 09/22/20 03:15 09/23/20 10:24 Miscellaneous Medication 1 IV 51 mls each/ Sodium Chloride INF SIMA Administration Protocol As Directed Furosemide 100 mg/ Sodium 110 mls @ 3.3 mls/hr 09/22/20 07:15 09/22/20 07:35 Chloride IVPB 110 mls INF SIMA Administration 3 MG/HR Ferric Sodium Gluconate 120 mls @ 60 mls/hr 09/22/20 11:00 09/23/20 12:40 Complex 250 mg/ Sodium IVPB 09/24/20 12:59 120 mls Chloride Q24HR SIMA Administration Levothyroxine Sodium 50 mcg 09/22/20 06:00 09/23/20 05:09 Levothyroxine Sodium 50 Mcg Tab PO 50 mcg 0600 SIMA Administration Metolazone 2.5 mg 09/22/20 08:30 09/23/20 10:08 Metolazone 2.5 Mg Tab PO 2.5 mg 0830 SIMA Administration Sodium Chloride 10 ml 09/21/20 09:00 09/23/20 08:34 Flush - Normal Saline 10 Ml Syringe IVF 10 ml Q12HR SIMA Administration - Exam General Appearance: NAD, ill appearing Eye: PERRL, anicteric sclera ENT: normocephalic atraumatic, no oropharyngeal lesions, dry oral mucosa Neck: supple, symmetric, no JVD, no thyromegaly, no lymphadenopathy Heart: RRR, no murmur, no gallops, no rubs, normal peripheral pulses Respiratory: no ronchi, normal chest expansion, rales, rhonchi, wheezes Gastrointestinal: soft, non-distended, no palpable masses, tender to palpation Extremities: no cyanosis, no clubbing Skin: normal turgor Neurological: cranial nerve grossly intact, normal sensation to touch Musculoskeletal: generalized weakness Psychiatric: normal affect, somnolent, lethargic Hosp A/P (1) Splenic rupture Code(s): S36.09XA - OTHER INJURY OF SPLEEN, INITIAL ENCOUNTER Status: Suspected (2) Acute respiratory failure with hypoxia Code(s): J96.01 - ACUTE RESPIRATORY FAILURE WITH HYPOXIA Status: Acute (3) Acute worsening of stage 3 chronic kidney disease Code(s): N18.30 - CHRONIC KIDNEY DISEASE, STAGE 3 UNSPECIFIED Status: Acute (4) Fever Code(s): R50.9 - FEVER, UNSPECIFIED Status: Acute (5) CLL (chronic lymphocytic leukemia) Code(s): C91.10 - CHRONIC LYMPHOCYTIC LEUK OF B-CELL TYPE NOT ACHIEVE REMIS Status: Acute - Plan #1. Acute respiratory failure with hypoxia. He remains intubated and mechanically ventilated. We appreciate pulmonary services. I will defer to them about weaning. 09/23/2020. He was just extubated earlier this morning and he seems to be doing well. Continue routine care. 2. Suspected traumatic splenic rupture. He is status post splenectomy. 09/23/2020. Continue routine postop care. 3. Shock; suspected sepsis versus hypovolemic. He is now on vasopressors. Cultures are collected and are still cooking. He is empirically on IV Zosyn. We will follow up on all the active cultures. His urine analysis was abnormal with positive leukocyte esterases but no nitrite. The urine culture however has remained negative to date. Blood cultures are also negative. 09/23/2020. Still no growth from any of his cultures. I will continue empiric antibiotics for now. 4. Acute kidney injury. This seems to have worsened some. We appreciate nephrology for the ongoing evaluations. #5. History of CLL.
[2020-09-23] MEDS: Fentanyl 100 MCG/2 ML VIAL SLOW IVP SCH ×6 (13:24→21:37)
[2020-09-23] MEDS ORDERED: Acetaminophen/Codeine Oral Solution 120 mg/12 mg per 5 ml PO PRN (15:32)
--- NOTE | 2020-09-23 17:03 | PRG ---
DATE OF SERVICE: 09/23/2020 SUBJECTIVE: The patient remains in the critical care unit. He is status post exploratory laparotomy with splenectomy due to a spontaneous rupture. This note is encompassing two visits, one this morning with Dr. Penn during rounds and one followup visit this afternoon. The patient was extubated this morning. He has tolerated that well. He does have an occasional cough, which we have started him on DuoNeb treatments. He remains afebrile and is making adequate urine. He had his Lasix drip stopped this morning. At the time of my followup visit, his vasopressin had been weaned off and his Levophed has been weaned down to 4 mcg/minute. His MAP has remained above 65. Of note, on my followup visit, the nurses pointed out that when they were rolling the patient, they noticed that he had some blistering and skin sloughing on the pressure sides of his posterior, specifically his posterior upper arm, small patches of his back and buttock and his popliteal fossa area. There did not appear to have any other rashes or involvement of his mucous membranes or eyes/conjunctivae. The patient's medications were reviewed with pharmacy and it was noted that he was on Zosyn and this was changed to Flagyl and aztreonam as the patient did list a penicillin allergy. In view of the skin sloughing, albeit less likely a Browning-Rafael syndrome, the medications were reviewed and adjustments were made likely medication that may have been furosemide and this had already been discontinued. More likely, problem would be the vasopressors causing the skin changes. Again, these have been weaned down and will hopefully be weaned off completely within the next 12 hours. Otherwise, the patient is tolerating his tube feeds and his pain is controlled currently on Tylenol and Tylenol No. 3 elixir. PHYSICAL EXAMINATION: VITAL SIGNS: Heart rate 85, blood pressure 122/71, respirations 17, oxygen saturation 100% on 2 L via nasal cannula. GENERAL: The patient is resting comfortably in bed. He is awake, verbally responsive and appropriate. He reports hurting all over. LUNGS: Respirations are equal bilateral with scattered rhonchi bilaterally. HEART: Regular rate and rhythm. ABDOMEN: Soft, nontender with hypoactive bowel sounds. The patient has had a loose stool. EXTREMITIES: Bilateral upper extremities, on the posterior arm again has patches of denuded skin, the left popliteal fossa again has a small area of denuded skin and his back is noted to have small areas also in the presacral area. LABORATORY FINDINGS: White blood cell count 13.9, hemoglobin 7.8, hematocrit 25.3, platelets 137. Sodium 143, potassium 3.9, chloride 108, CO2 of 25, BUN 31, creatinine 1.90, glucose 158, magnesium 1.8, phosphorus 3.7, cortisol is 18.5. RADIOGRAPHIC FINDINGS: AP chest x-ray shows small effusions and bibasilar atelectasis, which appear stable from previous exams. ASSESSMENT AND PLAN: 1. Status post splenectomy, postoperative day #3. 2. Acute blood loss anemia, stable. 3. Fluid overload, improved after diuresis. 4. Stage 3 chronic kidney disease. 5. History of congestive heart failure. 6. History of paroxysmal atrial fibrillation. Plan will be to continue supportive care. We will monitor him closely. Wean from his pressors. Repeat labs in the morning and repeat chest x-ray also in the morning. Job ID: [id number]
[2020-09-23] MEDS: metroNIDAZOLE 500 MG in Premix Bag 1 BAG IVPB SCH ×2 (17:41→23:49)
[2020-09-23] MEDS: Aztreonam 1 GM in Sodium Chloride 0.9% 100 ML IVPB SCH (21:33)
[2020-09-24] MEDS: Fentanyl 100 MCG/2 ML VIAL SLOW IVP SCH (00:28)
[2020-09-24] MEDS: Fentanyl 100 MCG/2 ML VIAL SLOW IVP PRN ×4 (02:18→21:45)
[2020-09-24] MEDS: Acetaminophen 650 MG/20.3 ML UDCUP PO SCH ×5 (02:29→22:37)
--- NOTE | 2020-09-24 02:38 | PRG ---
DATE OF SERVICE: 09/23/2020 SUBJECTIVE: The patient was seen this evening during rounds. He was lying in bed, awake and alert. He was mildly confused. He did complain that he was hot and he wanted me to remove the blanket, which I did. He was also agreeable to a fan. He reported his abdomen was nontender. Nursing reported no acute events. He is still on levo at 4. He was extubated earlier today. OBJECTIVE: VITAL SIGNS: Temperature 97.7, pulse 100, respirations 16, oxygen saturation 100% on nasal cannula, blood pressure 111/36. GENERAL: Elderly male, lying in bed with no signs of acute distress. PULMONARY: Equal chest rise and fall. No signs of acute respiratory distress. Clear breath sounds bilaterally. CARDIAC: Irregular rate and rhythm. GI: Abdomen soft, appropriately tender to palpation, and nondistended. EXTREMITIES: 2+ pulses in all extremities. No significant swelling noted. NEUROLOGIC: GCS is 14, -1 for confusion. ASSESSMENT: Postop day 3 status post exploratory laparotomy, evacuation of large hematoma with abdominal washout, splenectomy, and NG tube placement. PLAN: Continue n.p.o. with tube feeds at 100 an hour. Continue antibiotics with Flagyl and aztreonam. Continue to wean vasopressin as able. Monitor urinary output. Repeat blood work and chest x-ray in the morning. Job ID: [id number] [facility]
[2020-09-24] MEDS: Norepinephrine 8 MG/0.9% NS 250 ML IVPB SCH (02:59)
[2020-09-24 05:01] LABS: ALT (SGPT) Less than 7 U/L (8-55); AST (SGOT) 14 U/L (5-34); Albumin 2.6 g/dL (3.4-4.8); Alkaline Phosphatase 126 U/L (40-110); Anion Gap 14 mmol/L (10-20); BUN (Urea Nitrogen) 31 mg/dL (8.4-25.7); Bilirubin, Total Less than 0.2 mg/dL (0.2-1.2); Calc. Creatinine Clearance 32 mL/min (70-130); Calcium 7.9 mg/dL (7.8-10.44); Carbon Dioxide 26 mmol/L (23-31); Chloride 108 mmol/L (98-107); Globulin 1.3 g/dL (2.4-3.5); Glucose 101 mg/dL (83-110); Magnesium 1.7 mg/dL (1.6-2.6); Phosphorus 3.4 mg/dL (2.3-4.7); Potassium 3.3 mmol/L (3.5-5.1); Protein, Total 3.9 g/dL (5.8-8.1); Sodium 145 mmol/L (136-145)
[2020-09-24] MEDS: Levothyroxine Sodium 50 MCG TAB PO SCH (05:35)
[2020-09-24] MEDS: metroNIDAZOLE 500 MG in Premix Bag 1 BAG IVPB SCH ×3 (05:36→17:46)
[2020-09-24] MEDS: Aztreonam 1 GM in Sodium Chloride 0.9% 100 ML IVPB SCH ×3 (05:37→21:46)
[2020-09-24 08:24] LABS: Hemoglobin 8.2 g/dL (14.0-18.0); Mean Corpuscular HGB CONC 30.5 g/dL (32.0-36.0); Mean Corpuscular Hemoglobin 24.5 pg (27.0-31.0); Mean Corpuscular Volume 80.1 fL (78.0-98.0); Mean Platelet Volume 10.4 fL (7.4-10.4); Platelet Count 140 thou/uL (130-400); RBC Distribution Width 17.6 % (11.5-14.5); Red Blood Cell (RBC) Count 3.35 mill/uL (4.70-6.10); White Blood Cell (WBC) Count 13.1 thou/uL (4.8-10.8)
[2020-09-24] MEDS ORDERED: Meningococcal Vaccine 0.5ML VIAL (MENACTRA) IM ONE (08:30)
[2020-09-24 08:59] LABS: Anisocytosis SLIGHT = 6-15 cells (100X) (0-5/hpf); Band 13 % (5-11); Elliptocytes MODERATE= 6-15 cells (100X) (0-1/hpf); Eosinophils 2 % (0-10); Hypochromia SLIGHT = 6-15 cells (100X) (0-5/hpf); Lymphocytes 6 % (21-51); MDiff Complete? YES; Monocytes 7 % (0-10); Neutrophil 72 % (42-75); Platelet Morphology Comment Appears Adequate; Poikilocytosis MODERATE=16-30 cells (100X) (0-5/hpf); Schistocytes SLIGHT = 2-5 cells (100X) (0-1/hpf)
[2020-09-24] MEDS: Metolazone 2.5 MG TAB PO SCH (09:15)
--- NOTE | 2020-09-24 09:16 | RAD ---
PORTABLE CHEST: HISTORY: CCU followup. COMPARISON: 09/23/2020. FINDINGS/IMPRESSION: ET tube has been removed. Central line and NG tubes are unchanged. There are bilateral effusions an d bibasilar atelectasis. N acute infiltrate or significant change in the appearance of the chest. POS: AGW
[2020-09-24] MEDS: Digoxin 0.125 MG TAB PER TUBE SCH (09:20)
[2020-09-24] MEDS ORDERED: Potassium Chloride 40 MEQ, Magnesium Sulfate 2 GM in Sodium Chloride 0.9% 250 ML 250 ML IVPB SCH (09:30)
[2020-09-24] MEDS ORDERED: Magnesium 2 GM/50 ML 2 GM in Premix Bag 1 BAG IVPB SCH (09:30)
--- NOTE | 2020-09-24 09:31 | PDOC.NEPPN ---
- Subjective Encounter Date: 09/24/20 Subjective: Seen and examined. extubated and now on tube feeding. complaining of generalized body aches. - Objective Vital Signs & Weight: Vital Signs (12 hours) Temp Pulse Resp Pulse Ox 09/24/20 09:20 103 H 09/24/20 08:00 98.2 F 09/24/20 06:48 101 H 17 100 09/24/20 04:00 98.1 F 09/24/20 00:00 97.7 F 09/23/20 23:30 90 20 100 Weight Admit Weight 157 lb 3.2 oz Weight 121 lb 6.4 oz Most Recent Monitor Data Heart Rate from ECG 105 NIBP 122/77 NIBP BP-Mean 92 Respiration from ECG 16 SpO2 98 I&O: 09/23/20 09/24/20 09/25/20 06:59 06:59 06:59 Intake Total 2566.7 1307.2 Output Total 3505 2470 100 Balance -938.3 -1162.8 -100 Result Diagrams: 09/24/20 08:11 09/24/20 03:45 Nephrology ROS - Medication Medications: Active Medications Generic Name Dose Route Start Last Admin Trade Name Freq PRN Reason Stop Dose Admin Acetaminophen 650 mg 09/22/20 01:45 09/24/20 02:29 Acetaminophen 650 Mg/20.3 Ml Udcup PO 650 mg Q6H SIMA Administration Albuterol/Ipratropium 3 ml 09/23/20 19:00 09/24/20 06:48 Ipratropium/Albuterol Sulfate 3 Ml Neb NEB 3 ml [id number] SIMA Administration Digoxin 0.125 mg 09/22/20 09:00 09/24/20 09:20 Digoxin 0.125 Mg Tab PER TUBE 0.125 mg DAILY SIMA Administration Dronedarone 400 mg 09/21/20 17:00 09/23/20 17:32 Dronedarone Hcl 400 Mg Tab PO Not Given BID-WM SIMA Fentanyl 25 mcg 09/23/20 23:43 09/24/20 09:15 Fentanyl 100 Mcg/2 Ml Vial SLOW IVP 25 mcg Q2H PRN Administration Moderate to Severe Pain (6-10) Vasopressin 20 unit/ 51 mls @ 0 mls/hr 09/22/20 03:15 09/23/20 10:24 Miscellaneous Medication 1 IV 51 mls each/ Sodium Chloride INF SIMA Administration Protocol As Directed Ferric Sodium Gluconate 120 mls @ 60 mls/hr 09/22/20 11:00 09/23/20 12:40 Complex 250 mg/ Sodium IVPB 09/24/20 12:59 120 mls Chloride Q24HR SIMA Administration Aztreonam 1 gm/ Sodium 100 mls @ 100 mls/hr 09/23/20 22:00 09/24/20 05:37 Chloride IVPB 100 mls Q8HR SIMA Administration Metronidazole 500 mg/ Device 100 mls @ 100 mls/hr 09/23/20 18:00 09/24/20 05:36 IVPB 100 mls Q6HR SIMA Administration Norepinephrine Bitartrate 250 mls @ 0 mls/hr 09/24/20 02:45 09/24/20 02:59 Levophed IVPB 250 mls INF SIMA Administration Protocol Titrate Levothyroxine Sodium 50 mcg 09/22/20 06:00 09/24/20 05:35 Levothyroxine Sodium 50 Mcg Tab PO 50 mcg 0600 SIMA Administration Metolazone 2.5 mg 09/22/20 08:30 09/24/20 09:15 Metolazone 2.5 Mg Tab PO 2.5 mg 0830 SIMA Administration Sodium Chloride 10 ml 09/21/20 09:00 09/24/20 09:21 Flush - Normal Saline 10 Ml Syringe IVF 10 ml Q12HR SIMA Administration - Exam Eye: anicteric sclera ENT: normocephalic atraumatic, dry oral mucosa ENT - other findings: NG tubes in place Respiratory - other findings: fair air entry bilaterally with some transmitted breathsound +/- crackles Cardiovascular: irregular Gastrointestinal: soft, non-distended Gastrointestinal - other findings: surgical wound in place Extremities - other findings: mild to moderate edema of the extremities noted Neurological: CN's grossly intact, no focal deficits PSYCH: A&O x 3 Nephrology Results - Labs Result Diagrams: 09/24/20 08:11 09/24/20 03:45 Lab results: WBC 13.1 thou/uL (4.8-10.8) H 09/24/20 08:11 Hgb 8.2 g/dL (14.0-18.0) L 09/24/20 08:11 Hct 26.8 % (42.0-52.0) L 09/24/20 08:11 MCV 80.1 fL (78.0-98.0) 09/24/20 08:11 Plt Count 140 thou/uL (130-400) 09/24/20 08:11 Neutrophils % 83.8 % (42.0-75.0) H 09/23/20 05:45 Band Neuts % (Manual) 13 % (5-11) H 09/24/20 08:11 ABG pH 7.51 (7.35-7.45) H 09/23/20 07:20 ABG pCO2 28.8 mmHg (35.0-45.0) L 09/23/20 07:20 ABG pO2 145.9 mmHg (> 60.0) H 09/23/20 07:20 Sodium 145 mmol/L (136-145) 09/24/20 03:45 Potassium 3.3 mmol/L (3.5-5.1) L 09/24/20 03:45 Chloride 108 mmol/L (98-107) H 09/24/20 03:45 Carbon Dioxide 26 mmol/L (23-31) 09/24/20 03:45 BUN 31 mg/dL (8.4-25.7) H 09/24/20 03:45 Creatinine 1.39 mg/dL (0.7-1.3) H 09/24/20 03:45 Glucose 101 mg/dL (83-110) 09/24/20 03:45 Lactic Acid 1.8 mmol/L (0.5-2.2) 09/21/20 04:30 Calcium 7.9 mg/dL (7.8-10.44) 09/24/20 03:45 Total Bilirubin Less than 0.2 mg/dL (0.2-1.2) L 09/24/20 03:45 AST 14 U/L (5-34) 09/24/20 03:45 ALT Less than 7 U/L (8-55) L 09/24/20 03:45 Alkaline Phosphatase 126 U/L (40-110) H 09/24/20 03:45 CK-MB (CK-2) 0.7 ng/mL (0-6.6) 09/20/20 06:54 Troponin I 0.068 ng/mL (< 0.028) H 09/20/20 13:16 C-Reactive Protein 11.97 mg/dL (= or < 0.5) H 09/21/20 17:21 B-Natriuretic Peptide 433.6 pg/mL (0-100) H 09/21/20 09:48 Serum Total Protein 3.9 g/dL (5.8-8.1) L 09/24/20 03:45 Albumin 2.6 g/dL (3.4-4.8) L 09/24/20 03:45 Urine Ketones 10 mg/dL (Negative) A 09/21/20 01:00 Urine Blood 3+ (Negative) A 09/21/20 01:00 Urine Nitrite Negative (Negative) 09/21/20 01:00 Ur Leukocyte Esterase 250 Radha/uL (Negative) A 09/21/20 01:00 Urine RBC Greater than 50 HPF (0-3) A 09/21/20 01:00 Urine WBC 11-20 HPF (0-3) A 09/21/20 01:00 Ur Squamous Epith Cells None Seen HPF (0-3) 09/21/20 01:00 Urine Bacteria None Seen HPF (None Seen) 09/21/20 01:00 Sodium 145 mmol/L (136-145) 09/24/20 03:45 Potassium 3.3 mmol/L (3.5-5.1) L 09/24/20 03:45 Chloride 108 mmol/L (98-107) H 09/24/20 03:45 Carbon Dioxide 26 mmol/L (23-31) 09/24/20 03:45 Anion Gap 14 mmol/L (10-20) 09/24/20 03:45 BUN 31 mg/dL (8.4-25.7) H 09/24/20 03:45 Creatinine 1.39 mg/dL (0.7-1.3) H 09/24/20 03:45 Glucose 101 mg/dL (83-110) 09/24/20 03:45 Calcium 7.9 mg/dL (7.8-10.44) 09/24/20 03:45 Phosphorus 3.4 mg/dL (2.3-4.7) 09/24/20 03:45 Magnesium 1.7 mg/dL (1.6-2.6) 09/24/20 03:45 Albumin 2.6 g/dL (3.4-4.8) L 09/24/20 03:45 Nephrology AP PN - Plan KAYLENE: Due to hemodynamic factors related to volume depletion from acute hemorrhage with superimposed cardiorenal due to acute CHF fluid resuscitation and atrial fibrillation. Improving. CKD stage 3 Metabolic alkalosis: Due to intravascular contraction. Resolved Hypokalemia. Hypoalbuminemia Generalized edema Acute blood loss anemia iron deficiency anemia Cardiorenal syndrome. Presumed acute on chronic combined CHF with EF of 35 % Paroxysmal atrial fibrillation Plan Replete serum magnesium with 2 grams of magnesium sulphate in view of Afib and hypokalemia and continued diuresis. Replete potassium as needed Complete IV iron therapy. Continue diuretic therapy. Follow renal function Other treatment as per Trauma team.
[2020-09-24] MEDS: Potassium Chloride 40 MEQ, Magnesium Sulfate 3 GM in Sodium Chloride 0.9% 250 ML 250 ML IVPB SCH ×2 (10:10→10:11)
--- NOTE | 2020-09-24 10:11 | PDOC.PALFU ---
Palliative Care Follow-up Note Mr Villalba assessed, attempted to call Niya Villalba at [phone]. No answer or opportunity to leave a voicemail. Will follow up with hopes she comes to bedside, or reattempt to connect via phone again this afternoon 09/24/2020.
[2020-09-24] MEDS: Iron, Sodium Ferric Gluconate 250 MG in Sodium Chloride 0.9% 100 ML IVPB SCH (11:07)
--- NOTE | 2020-09-24 13:52 | PDOC.PALCO ---
Palliative Care Consult - Consult Details Requesting Physician: Emmanuel TORRES Tra[facility] Reason for Consult: goals of care, advance directives assistance, complex decision-making Family Members Present: , Niya Villalba - Pertinent HPI 80 year old gentleman who had had a declining health status over the past year as per . Chronic lymphocytic leukemia with complication of atrial fibrillation and congestive heart failure with recent exacerbation. He was transferred to [facility] 09/20/2020 after presenting to [facility] emergency room secondary to chest pain that was non retractable. CT in [place] identified possible splenic rupture, transferred to [facility] for admission and further evaluation. He was taken for an exploratory laparotomy with subsequent splenectomy. Was extubated, pronounced weakness. reports increasing episodes of weakness in home setting, increasing falls. - Pertinent PMH Atrial Fibrillation, chronic leukemia, renal calculi, renal disease, hypothyroid, heart failure - Social History Smoking Status: Former smoker Smoking: quit greater than 1 year Alcohol Use: rarely Drug Use History: none Living Situation: - Medications MAR Reviewed: Yes - Allergies Allergies/Adverse Reactions: Allergies Allergy/AdvReac Type Severity Reaction Status Date / Time Penicillins Allergy Verified 07/01/20 08:23 sulfamethoxazole Allergy Verified 07/03/20 14:27 [From Bactrim] trimethoprim [From Bactrim] Allergy Verified 07/03/20 14:27 - Subjective Weakness, lethargic. Poor historian, complains of pain "all over". Ng, Pressure support, at bedside. - ROS Constitutional: lethargic, weakness ENT: dry mouth Musculoskeletal: arthritis/arthralgias - Objective Vital Signs: Vital Signs - Most Recent Temp Pulse Resp BP Pulse Ox 98.2 F 92 18 142/51 H 100 09/24/20 08:00 09/24/20 13:39 09/24/20 13:39 09/23/20 07:12 09/24/20 13:39 Palliative Performance Scale: 30 - Advance Directives Medical Power of Environmental Intern: Niya Villalba Specific Directives: Niya confirms recent completion of Directive to physician - Physical Exam Constitutional: ill appearing HEENT: EOMI, moist MMs Deviation from normal: bilaterally with diffuse adventicious lung sounds Cardiovascular: RRR Gastrointestinal: soft, non-tender, incontinent Genitourinary: gibson catheter Musculoskeletal: no clubbing Neurology: moves all 4 limbs, no focal deficits Skin: fragile Psychiatric: A&O x 3, normal affect - Problem List (1) Palliative care encounter Code(s): Z51.5 - ENCOUNTER FOR PALLIATIVE CARE Current Visit: Yes Status: Acute (2) Acute worsening of stage 3 chronic kidney disease Code(s): N18.30 - CHRONIC KIDNEY DISEASE, STAGE 3 UNSPECIFIED Current Visit: Yes Status: Acute (3) CLL (chronic lymphocytic leukemia) Code(s): C91.10 - CHRONIC LYMPHOCYTIC LEUK OF B-CELL TYPE NOT ACHIEVE REMIS Current Visit: Yes Status: Acute (4) Splenic rupture Code(s): S36.09XA - OTHER INJURY OF SPLEEN, INITIAL ENCOUNTER Current Visit: Yes Status: Suspected (5) Acute on chronic systolic heart failure Code(s): I50.23 - ACUTE ON CHRONIC SYSTOLIC (CONGESTIVE) HEART FAILURE Current Visit: No Status: Acute - Plan/Recommendations Plan: Visited with patient and . He rested, she relayed a short life review. over 60 years, met through mutual friends. They lived in [place] and retired to [place]. They have two children, the son lives in [place] and will be visiting his dad Thrusday. Mr Villalba has always been "busy" and reports this past year since Dec it has been difficult as he has declined and decreased in ability to do activities. Increasing assistance with ADL, recent C- diff that caused significant bowel incontinence. Mrs Villalba confirms they recently completed their Medical Power of Environmental Intern as well as Directive to Physician. Requested copy be provided to hospital for review and that all who care for him are aware of his wishes. Confirmed he wished to be a DNAR, document completed. Mrs Villalba is understanding of his fragile state, her hope is to return to the home setting. She is relayed that rehab may be a consideration. We discussed as Mr Villalba gains strength we can further discuss what his Goal of Care is. Emotional Support and Theraputic listening. Spiritual care consulted. Communicated with Trauma Services. *Will relay when Directive to Physician is obtained and placed on chart. [75] minutes spent on this encounter with >50% of the time in counseling and coordination of care. Thank you for this very appropriate consult.
--- NOTE | 2020-09-24 16:57 | PRG ---
DATE OF SERVICE: 09/24/2020 SUBJECTIVE: Mr. Villalba is an 80-year-old man, who is postoperative day #3, status post exploratory laparotomy with splenectomy. He is awake and alert this morning, reports adequate pain control. Vasopressin has since been weaned off. He is now on norepinephrine at 5 mcg/minute. OBJECTIVE: VITAL SIGNS: This morning include blood pressure 122/77, pulse 103, respiratory rate is 16, maximum temperature in last 24 hours is 98.2 degrees Fahrenheit, oxygen saturation is 100% on 2 L by nasal cannula oxygen. HEENT: Reveals normocephalic and atraumatic. Pupils are equally round and reactive to light and accommodation. HEART: Reveals irregular rate and rhythm. LUNGS: Clear to auscultation bilaterally. Breathing, regular and nonlabored. ABDOMEN: Soft with incisional tenderness to palpation. He has no gross peritoneal signs present. NEUROLOGIC: Reveals no focal deficits present. LABORATORY FINDINGS: Today include a CBC with 13,100 white blood cells, hemoglobin and hematocrit are 8.2 and 26.8 respectively. Platelet count is 140,000. Metabolic profile; sodium 145, potassium 3.3, chloride is 108, bicarb is 26, BUN is 31, creatinine is 1.39, and glucose is 101. Magnesium 1.7 and phosphorus 3.4. IMPRESSIONS: 1. Postoperative day #3, status post exploratory laparotomy with splenectomy. 2. Acute kidney injury, resolving. 3. Acute hypokalemia. 4. Acute hypomagnesemia. 5. Acute hypophosphatemia. PLAN: 1. Correct abnormal electrolytes. 2. Increase activity per Physical and Occupational therapy. 3. There is no clinical indication for blood transfusion for this patient's stable acute blood loss anemia. 4. We will continue to wean the norepinephrine to off as blood pressure tolerates. Job ID: [id number]
--- NOTE | 2020-09-24 17:17 | PDOC.HOSPP ---
- Subjective Encounter Date: 09/24/20 Encounter Time: 17:16 Subjective: Met with patient and at bedside. He remains extubated and much more awake and alert today. His cultures are negative to date. He feels sore all over. Will get PT/OT to start working on him while he is in bed. Continue tube feedings. - Objective Vital Signs & Weight: Vital Signs (12 hours) Temp Pulse Resp Pulse Ox 09/24/20 13:39 92 18 100 09/24/20 12:00 98.1 F 09/24/20 09:20 103 H 09/24/20 08:00 98.2 F 100 09/24/20 06:48 101 H 17 100 Weight Admit Weight 157 lb 3.2 oz Weight 121 lb 6.4 oz Most Recent Monitor Data Heart Rate from ECG 93 NIBP 110/55 NIBP BP-Mean 73 Respiration from ECG 21 SpO2 98 I&O: 09/23/20 09/24/20 09/25/20 06:59 06:59 06:59 Intake Total 2566.7 1307.2 790.5 Output Total 3505 2470 650 Balance -938.3 -1162.8 140.5 Result Diagrams: 09/24/20 08:11 09/24/20 03:45 Radiology Reviewed by me: Yes EKG Reviewed by me: Yes Hospitalist ROS - Review of Systems ROS unobtainable: due to mental status Constitutional: reports: weakness, malaise Respiratory: reports: shortness of breath, SOB with excertion Cardiovascular: reports: chest pain Gastrointestinal: reports: nausea Neurological: reports: weakness, numbness, incoordination, change in speech - Medication Medications: Active Medications Generic Name Dose Route Start Last Admin Trade Name Isaiahq PRN Reason Stop Dose Admin Acetaminophen 650 mg 09/22/20 01:45 09/24/20 13:34 Acetaminophen 650 Mg/20.3 Ml Udcup PO 650 mg Q6H SIMA Administration Albuterol/Ipratropium 3 ml 09/23/20 19:00 09/24/20 13:39 Ipratropium/Albuterol Sulfate 3 Ml Neb NEB 3 ml [id number] SIMA Administration Digoxin 0.125 mg 09/22/20 09:00 09/24/20 09:20 Digoxin 0.125 Mg Tab PER TUBE 0.125 mg DAILY SIMA Administration Dronedarone 400 mg 09/21/20 17:00 09/23/20 17:32 Dronedarone Hcl 400 Mg Tab PO Not Given BID- SIMA Fentanyl 25 mcg 09/23/20 23:43 09/24/20 09:15 Fentanyl 100 Mcg/2 Ml Vial SLOW IVP 25 mcg Q2H PRN Administration Moderate to Severe Pain (6-10) Vasopressin 20 unit/ 51 mls @ 0 mls/hr 09/22/20 03:15 09/23/20 10:24 Miscellaneous Medication 1 IV 51 mls each/ Sodium Chloride INF SIMA Administration Protocol As Directed Aztreonam 1 gm/ Sodium 100 mls @ 100 mls/hr 09/23/20 22:00 09/24/20 13:49 Chloride IVPB 100 mls Q8HR SIMA Administration Metronidazole 500 mg/ Device 100 mls @ 100 mls/hr 09/23/20 18:00 09/24/20 11:13 IVPB 100 mls Q6HR SIMA Administration Norepinephrine Bitartrate 250 mls @ 0 mls/hr 09/24/20 02:45 09/24/20 02:59 Levophed IVPB 250 mls INF SIMA Administration Protocol Titrate Levothyroxine Sodium 50 mcg 09/22/20 06:00 09/24/20 05:35 Levothyroxine Sodium 50 Mcg Tab PO 50 mcg 0600 SIMA Administration Metolazone 2.5 mg 09/22/20 08:30 09/24/20 09:15 Metolazone 2.5 Mg Tab PO 2.5 mg 0830 SIMA Administration Sodium Chloride 10 ml 09/21/20 09:00 09/24/20 09:21 Flush - Normal Saline 10 Ml Syringe IVF 10 ml Q12HR SIMA Administration - Exam General Appearance: NAD, awake alert Eye: PERRL, anicteric sclera ENT: normocephalic atraumatic, no oropharyngeal lesions, moist mucosa Neck: supple, symmetric, no JVD, no thyromegaly, no lymphadenopathy Heart: RRR, no murmur, no gallops, no rubs, normal peripheral pulses Respiratory: CTAB, no wheezes, no rales, no ronchi, normal chest expansion Gastrointestinal: soft, non-tender, non-distended, normal bowel sounds Neurological: normal sensation to touch Musculoskeletal: generalized weakness Psychiatric: normal affect, oriented to person, oriented to place Hosp A/P (1) Splenic rupture Code(s): S36.09XA - OTHER INJURY OF SPLEEN, INITIAL ENCOUNTER Status: Suspected (2) Acute respiratory failure with hypoxia Code(s): J96.01 - ACUTE RESPIRATORY FAILURE WITH HYPOXIA Status: Acute (3) Acute worsening of stage 3 chronic kidney disease Code(s): N18.30 - CHRONIC KIDNEY DISEASE, STAGE 3 UNSPECIFIED Status: Acute (4) Fever Code(s): R50.9 - FEVER, UNSPECIFIED Status: Acute (5) CLL (chronic lymphocytic leukemia) Code(s): C91.10 - CHRONIC LYMPHOCYTIC LEUK OF B-CELL TYPE NOT ACHIEVE REMIS Status: Acute - Plan #1. Acute respiratory failure with hypoxia. He remains intubated and mechanically ventilated. We appreciate pulmonary services. I will defer to them about weaning. 09/23/2020. He was just extubated earlier this morning and he seems to be doing well. Continue routine care. 09/24/20 He is now on room air. 2. Suspected traumatic splenic rupture. He is status post splenectomy. 09/23/2020. Continue routine postop care. 3. Shock; suspected sepsis versus hypovolemic. He is now on vasopressors. Cultures are collected and are still cooking. He is empirically on IV Zosyn. We will follow up on all the active cultures. His urine analysis was abnormal with positive leukocyte esterases but no nitrite. The urine culture however has remained negative to date. Blood cultures are also negative. 09/23/2020. Still no growth from any of his cultures. I will continue empiric antibiotics for now. 09/24/20 Still requiring vasopressors. 4. Acute kidney injury. This seems to have worsened some. We appreciate nephrology for the ongoing evaluations. #5. History of CLL. 6. Debility. Aggressive PT
[2020-09-24] MEDS: Hydrocortisone Sod Succ/PF 100 mg/2 ml Vial IVP SCH (17:46)
[2020-09-24] MEDS: Acetaminophen W/ Codeine 5 ML UDCUP PO PRN (22:38)
[2020-09-25] MEDS: Hydrocortisone Sod Succ/PF 100 mg/2 ml Vial IVP SCH ×4 (00:56→18:24)
[2020-09-25] MEDS: metroNIDAZOLE 500 MG in Premix Bag 1 BAG IVPB SCH ×4 (01:03→18:24)
[2020-09-25] MEDS: Acetaminophen 650 MG/20.3 ML UDCUP PO SCH ×5 (01:19→22:30)
--- NOTE | 2020-09-25 02:52 | PRG ---
DATE OF SERVICE: 09/24/2020 SUBJECTIVE: This is an 80-year-old male, postop day 3, status post exploratory laparotomy with splenectomy after spontaneous rupture. The patient reports some continued abdominal pain. He is off vaso. He remains on Levophed at 4 mcg/minute. Urine output has been adequate. Nursing at bedside. Vocalized no concerns. OBJECTIVE: VITAL SIGNS: Reviewed and as documented in the electronic medical record. GENERAL: Elderly appearing male, in no acute distress, resting in bed. PULMONARY: Normal work of breathing. Symmetric rise. ABDOMEN: With generalized tenderness to palpation. No signs of peritonitis. NEURO: No focal deficit is noted. LABORATORY FINDINGS: No new laboratory findings since previous progress note. ASSESSMENT: 1. Postoperative day 3, status post exploratory laparotomy and splenectomy. 2. Acute kidney injury, resolving. 3. Acute hypokalemia. 4. Acute hypomagnesemia. 5. Acute hypophosphatemia. 6. Acute blood loss anemia. 7. Circulatory shock. PLAN: Continue supportive care as ordered. Pain management as ordered. Continue to wean Levo as able. Supportive care is ordered. Plan of care was discussed with the patient and nursing at bedside. All questions were answered prior to this dictation. Job ID: [id number]
[2020-09-25 04:13] LABS: Anion Gap 12 mmol/L (10-20); BUN (Urea Nitrogen) 30 mg/dL (8.4-25.7); Calc. Creatinine Clearance 42 mL/min (70-130); Calcium 8.1 mg/dL (7.8-10.44); Carbon Dioxide 29 mmol/L (23-31); Chloride 110 mmol/L (98-107); Glucose 151 mg/dL (83-110); Magnesium 2.1 mg/dL (1.6-2.6); Potassium 3.3 mmol/L (3.5-5.1); Sodium 148 mmol/L (136-145)
[2020-09-25 05:03] LABS: #Lymphocytes 1.3 thou/uL (1.20-3.40); #Monocytes 0.6 thou/uL (0.11-0.59); #Neutrophils 9.2 thou/uL (1.40-6.50); %Basophils 0.1 % (0.0-1.0); %Eosinophils 0.1 % (0.0-10.0); %Lymphocytes 11.6 % (21.0-51.0); %Monocytes 5.6 % (0.0-10.0); %Neutrophils 82.7 % (42.0-75.0); Elliptocytes MODERATE= 6-15 cells (100X) (0-1/hpf); Hemoglobin 7.9 g/dL (14.0-18.0); Large Platelets SLIGHT; MDiff Complete? YES; Mean Corpuscular HGB CONC 30.6 g/dL (32.0-36.0); Mean Corpuscular Hemoglobin 24.4 pg (27.0-31.0); Mean Corpuscular Volume 79.8 fL (78.0-98.0); Mean Platelet Volume 8.8 fL (7.4-10.4); Platelet Count 162 thou/uL (130-400); Platelet Morphology Comment Appears Adequate; RBC Distribution Width 17.6 % (11.5-14.5); Red Blood Cell (RBC) Count 3.23 mill/uL (4.70-6.10); Schistocytes SLIGHT = 2-5 cells (100X) (0-1/hpf); White Blood Cell (WBC) Count 11.1 thou/uL (4.8-10.8)
[2020-09-25] MEDS: Norepinephrine 8 MG/0.9% NS 250 ML IVPB SCH (05:25)
[2020-09-25] MEDS: Levothyroxine Sodium 50 MCG TAB PO SCH (05:33)
[2020-09-25] MEDS: Aztreonam 1 GM in Sodium Chloride 0.9% 100 ML IVPB SCH ×3 (07:17→21:32)
[2020-09-25] MEDS ORDERED: Potassium Phosphate 30 MMOL in Sodium Chloride 0.9% 250 ML 250 ML IVPB SCH (08:15)
[2020-09-25] MEDS: Digoxin 0.125 MG TAB PER TUBE SCH (08:17)
[2020-09-25] MEDS: Saccharomyces boulardii 250 MG CAP PO SCH ×2 (08:17→19:53)
[2020-09-25] MEDS: Metolazone 2.5 MG TAB PO SCH (08:22)
[2020-09-25] MEDS: Enoxaparin Sodium 30 MG/0.3 ML SYRINGE SC SCH (08:27)
[2020-09-25] MEDS ORDERED: Acthib 0.5 ML VIAL IM ONE (08:30)
--- NOTE | 2020-09-25 09:26 | PDOC.NEPPN ---
- Subjective Encounter Date: 09/25/20 Subjective: Seen in follow up for KAYLENE and electrolyte derangements. Complaining of g eneralized body aches and oral pain. - Objective Vital Signs & Weight: Vital Signs (12 hours) Temp Pulse Resp Pulse Ox 09/25/20 08:17 92 09/25/20 08:00 99.0 F 09/25/20 06:47 92 20 100 09/25/20 03:00 97.4 F L 09/25/20 01:00 97.5 F L 09/24/20 23:10 101 H 20 100 Weight Admit Weight 157 lb 3.2 oz Weight 121 lb 6.4 oz Most Recent Monitor Data Heart Rate from ECG 99 NIBP 155/87 NIBP BP-Mean 109 Respiration from ECG 18 SpO2 99 I&O: 09/24/20 09/25/20 09/26/20 06:59 06:59 06:59 Intake Total 1307.2 1898.5 Output Total 2470 2300 120 Balance -1162.8 -401.5 -120 Result Diagrams: 09/25/20 03:40 09/25/20 03:40 Nephrology ROS - Medication Medications: Active Medications Generic Name Dose Route Start Last Admin Trade Name Freq PRN Reason Stop Dose Admin Acetaminophen 650 mg 09/22/20 01:45 09/25/20 08:16 Acetaminophen 650 Mg/20.3 Ml Udcup PO 650 mg Q6H SIMA Administration Acetaminophen/Codeine Phosphate 10 ml 09/23/20 15:57 09/24/20 22:38 Acetaminophen W/ Codeine 5 Ml Udcup PO 10 ml Q4H PRN Administration Severe Pain (7-10) Albuterol/Ipratropium 3 ml 09/23/20 19:00 09/25/20 06:47 Ipratropium/Albuterol Sulfate 3 Ml Neb NEB 3 ml [id number] SIMA Administration Digoxin 0.125 mg 09/22/20 09:00 09/25/20 08:17 Digoxin 0.125 Mg Tab PER TUBE 0.125 mg DAILY SIMA Administration Dronedarone 400 mg 09/21/20 17:00 09/23/20 17:32 Dronedarone Hcl 400 Mg Tab PO Not Given BID-WM SIMA Enoxaparin Sodium 30 mg 09/25/20 09:00 09/25/20 08:27 Enoxaparin Sodium 30 Mg/0.3 Ml Syringe SC 30 mg 0900 SIMA Administration Fentanyl 25 mcg 09/23/20 23:43 09/24/20 21:45 Fentanyl 100 Mcg/2 Ml Vial SLOW IVP 25 mcg Q2H PRN Administration Moderate to Severe Pain (6-10) Hydrocortisone Sodium Succinate 25 mg 09/24/20 18:00 09/25/20 05:15 Hydrocortisone Sod Succ/Pf 100 Mg/2 Ml Vial IVP 25 mg Q6HR SIMA Administration Vasopressin 20 unit/ 51 mls @ 0 mls/hr 09/22/20 03:15 09/23/20 10:24 Miscellaneous Medication 1 IV 51 mls each/ Sodium Chloride INF SIMA Administration Protocol As Directed Aztreonam 1 gm/ Sodium 100 mls @ 100 mls/hr 09/23/20 22:00 09/25/20 07:17 Chloride IVPB 100 mls Q8HR SIMA Administration Metronidazole 500 mg/ Device 100 mls @ 100 mls/hr 09/23/20 18:00 09/25/20 05:25 IVPB 100 mls Q6HR SIMA Administration Norepinephrine Bitartrate 250 mls @ 0 mls/hr 09/24/20 02:45 09/25/20 05:25 Levophed IVPB 250 mls INF SIMA Administration Protocol Titrate Potassium Phosphate 30 mmol/ 260 mls @ 43.333 mls/hr 09/25/20 08:15 09/25/20 09:00 Sodium Chloride IVPB 09/25/20 14:00 260 mls NOW SIMA Administration Levothyroxine Sodium 50 mcg 09/22/20 06:00 09/25/20 05:33 Levothyroxine Sodium 50 Mcg Tab PO 50 mcg 0600 SIMA Administration Metolazone 2.5 mg 09/22/20 08:30 09/25/20 08:22 Metolazone 2.5 Mg Tab PO 2.5 mg 0830 SIMA Administration Saccharomyces Boulardii 250 mg 09/25/20 09:00 09/25/20 08:17 Saccharomyces Boulardii 250 Mg Cap PO 250 mg BID SIMA Administration Sodium Chloride 10 ml 09/21/20 09:00 09/24/20 21:53 Flush - Normal Saline 10 Ml Syringe IVF 10 ml Q12HR SIMA Administration - Exam General Appearance: awake alert ENT: normocephalic atraumatic ENT - other findings: bloody scab around the mouth. Respiratory - other findings: fair air entry bilaterally with ssome transmitted breath sound Cardiovascular: irregular Gastrointestinal: soft, non-distended Gastrointestinal - other findings: midline surgical wound noted Extremities - other findings: mild to moderate edema of the extremities noted Skin - other findings: mild blanching erythema of the legs associated with tenderness Neurological: CN's grossly intact Musculoskeletal: generalized weakness PSYCH: A&O x 3 Nephrology Results - Labs Result Diagrams: 09/25/20 03:40 09/25/20 03:40 Lab results: WBC 11.1 thou/uL (4.8-10.8) H 09/25/20 03:40 Hgb 7.9 g/dL (14.0-18.0) L 09/25/20 03:40 Hct 25.8 % (42.0-52.0) L 09/25/20 03:40 MCV 79.8 fL (78.0-98.0) 09/25/20 03:40 Plt Count 162 thou/uL (130-400) 09/25/20 03:40 Neutrophils % 82.7 % (42.0-75.0) H 09/25/20 03:40 Band Neuts % (Manual) 13 % (5-11) H 09/24/20 08:11 ABG pH 7.51 (7.35-7.45) H 09/23/20 07:20 ABG pCO2 28.8 mmHg (35.0-45.0) L 09/23/20 07:20 ABG pO2 145.9 mmHg (> 60.0) H 09/23/20 07:20 Sodium 148 mmol/L (136-145) H 09/25/20 03:40 Potassium 3.3 mmol/L (3.5-5.1) L 09/25/20 03:40 Chloride 110 mmol/L (98-107) H 09/25/20 03:40 Carbon Dioxide 29 mmol/L (23-31) 09/25/20 03:40 BUN 30 mg/dL (8.4-25.7) H 09/25/20 03:40 Creatinine 1.06 mg/dL (0.7-1.3) 09/25/20 03:40 Glucose 151 mg/dL (83-110) H 09/25/20 03:40 Lactic Acid 1.8 mmol/L (0.5-2.2) 09/21/20 04:30 Calcium 8.1 mg/dL (7.8-10.44) 09/25/20 03:40 Total Bilirubin Less than 0.2 mg/dL (0.2-1.2) L 09/24/20 03:45 AST 14 U/L (5-34) 09/24/20 03:45 ALT Less than 7 U/L (8-55) L 09/24/20 03:45 Alkaline Phosphatase 126 U/L (40-110) H 09/24/20 03:45 CK-MB (CK-2) 0.7 ng/mL (0-6.6) 09/20/20 06:54 Troponin I 0.068 ng/mL (< 0.028) H 09/20/20 13:16 C-Reactive Protein 11.97 mg/dL (= or < 0.5) H 09/21/20 17:21 B-Natriuretic Peptide 433.6 pg/mL (0-100) H 09/21/20 09:48 Serum Total Protein 3.9 g/dL (5.8-8.1) L 09/24/20 03:45 Albumin 2.6 g/dL (3.4-4.8) L 09/24/20 03:45 Urine Ketones 10 mg/dL (Negative) A 09/21/20 01:00 Urine Blood 3+ (Negative) A 09/21/20 01:00 Urine Nitrite Negative (Negative) 09/21/20 01:00 Ur Leukocyte Esterase 250 Radha/uL (Negative) A 09/21/20 01:00 Urine RBC Greater than 50 HPF (0-3) A 09/21/20 01:00 Urine WBC 11-20 HPF (0-3) A 09/21/20 01:00 Ur Squamous Epith Cells None Seen HPF (0-3) 09/21/20 01:00 Urine Bacteria None Seen HPF (None Seen) 09/21/20 01:00 Sodium 148 mmol/L (136-145) H 09/25/20 03:40 Potassium 3.3 mmol/L (3.5-5.1) L 09/25/20 03:40 Chloride 110 mmol/L (98-107) H 09/25/20 03:40 Carbon Dioxide 29 mmol/L (23-31) 09/25/20 03:40 Anion Gap 12 mmol/L (10-20) 09/25/20 03:40 BUN 30 mg/dL (8.4-25.7) H 09/25/20 03:40 Creatinine 1.06 mg/dL (0.7-1.3) 09/25/20 03:40 Glucose 151 mg/dL (83-110) H 09/25/20 03:40 Calcium 8.1 mg/dL (7.8-10.44) 09/25/20 03:40 Phosphorus 3.0 mg/dL (2.3-4.7) 09/25/20 03:40 Magnesium 2.1 mg/dL (1.6-2.6) 09/25/20 03:40 Albumin 2.6 g/dL (3.4-4.8) L 09/24/20 03:45 Nephrology AP PN - Plan KAYLENE: Due to hemodynamic factors related to volume depletion from acute hemorrhage with superimposed cardiorenal due to acute CHF fluid resuscitation and atrial fibrillation. Improving. Creat back to baseline CKD stage 3 Hypernatremia: Due to free water deficit Metabolic alkalosis: Due to intravascular contraction. Resolved Hypokalemia. Hypoalbuminemia Generalized edema Acute blood loss anemia iron deficiency anemia Cardiorenal syndrome. 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 now on very little pressor Plan/Recommendation Start and increase free water flushes via NG. Agree with potassium repletion with potassium phosphate Start magic mouthwash prn Continue diuretic therapy. Follow renal function Other treatment as per Trauma team. Nephrology will sign off at this time given resolution of KAYLENE
[2020-09-25] MEDS ORDERED: Aluminum & Magnesium Hydroxide 60 ML, diphenhydrAMINE 150 MG, Lidocaine 2% Viscous Solu... SSW PRN (09:33)
--- NOTE | 2020-09-25 14:51 | PRG ---
DATE OF SERVICE: 09/25/2020 SUBJECTIVE: Deejay is an 80-year-old man who is postoperative day #5, status post exploratory laparotomy with splenectomy for history of splenomegaly with acute splenic rupture. The patient is awake and alert this morning and is on no vasopressor or inotropic support. Urinary output is adequate for the patient's age. Sarah Coma Scale is E3, M6, V4. He moves all extremities and follows commands. He reports adequate pain control. OBJECTIVE: VITAL SIGNS: This morning include blood pressure 117/51, pulse 96, respiratory rate is 20, maximum temperature in last 24 hours 99.0 degrees Fahrenheit, and oxygen saturation is 100% on 2 L by nasal cannula oxygen. HEENT: Reveals normocephalic and atraumatic. Pupils are equal, round, reactive to light and accommodation. HEART: Reveals irregular rate and rhythm. LUNGS: Clear to auscultation bilaterally. Breathing, regular and nonlabored. ABDOMEN: Soft and nondistended. SKIN: Incision is intact, clean, dry. NEUROLOGIC: He has no neurological deficits present. LABORATORY FINDINGS: Today include a CBC with 11,100 white blood cells, hemoglobin and hematocrit are 7.9 and 25.8 respectively. Platelet count 162,000. Metabolic profile; sodium 148, potassium 3.3, chloride is 110, bicarb is 29, BUN 30, creatinine is 1.06, glucose 151, magnesium 2.1, and phosphorus 3.0. IMPRESSIONS: 1. Postoperative day #5, status post exploratory laparotomy with splenectomy. 2. Acute blood loss anemia, stable. 3. Acute hypokalemia. 4. Acute hypophosphatemia. 5. Acute hypernatremia. 6. Acute kidney injury, resolving. PLAN: 1. Increase tube feeds to 20 mL/h and speech pathology to evaluate the patient and would initiate oral intake as indicated. 2. Increase free water intake. 3. Correct abnormal electrolytes. 4. Increase activity per Physical and Occupational Therapy. Anticipate discharge of this patient to inpatient rehabilitation over the next 48 to 72 hours. Job ID: [id number]
--- NOTE | 2020-09-25 16:14 | PDOC.HOSPP ---
- Subjective Encounter Date: 09/25/20 Encounter Time: 16:12 Subjective: Mr. Villalba was seen and evaluated today. He remains extubated and conversant. He is now on low-dose Levophed. His cultures are still negative to date. His renal function appears to have recovered. I will likely de-escalate the antibiotics in the next 24 hours. - Objective Vital Signs & Weight: Vital Signs (12 hours) Temp Pulse Resp Pulse Ox 09/25/20 12:23 86 19 100 09/25/20 12:00 98.9 F 09/25/20 08:17 92 09/25/20 08:00 99.0 F 97 09/25/20 06:47 92 20 100 Weight Admit Weight 157 lb 3.2 oz Weight 121 lb 6.4 oz Most Recent Monitor Data Heart Rate from ECG 95 NIBP 137/71 NIBP BP-Mean 93 Respiration from ECG 20 SpO2 100 I&O: 09/24/20 09/25/20 09/26/20 06:59 06:59 06:59 Intake Total 1307.2 1898.5 877 Output Total 2470 2300 830 Balance -1162.8 -401.5 47 Result Diagrams: 09/25/20 03:40 09/25/20 03:40 Radiology Reviewed by me: Yes EKG Reviewed by me: Yes Hospitalist ROS - Review of Systems Constitutional: reports: weakness, malaise Respiratory: reports: shortness of breath, SOB with excertion Gastrointestinal: reports: nausea, vomiting - Medication Medications: Active Medications Generic Name Dose Route Start Last Admin Trade Name Freq PRN Reason Stop Dose Admin Acetaminophen 650 mg 09/22/20 01:45 09/25/20 13:28 Acetaminophen 650 Mg/20.3 Ml Udcup PO 650 mg Q6H SIMA Administration Acetaminophen/Codeine Phosphate 10 ml 09/23/20 15:57 09/24/20 22:38 Acetaminophen W/ Codeine 5 Ml Udcup PO 10 ml Q4H PRN Administration Severe Pain (7-10) Albuterol/Ipratropium 3 ml 09/23/20 19:00 09/25/20 12:23 Ipratropium/Albuterol Sulfate 3 Ml Neb NEB 3 ml [id number] SIMA Administration Digoxin 0.125 mg 09/22/20 09:00 09/25/20 08:17 Digoxin 0.125 Mg Tab PER TUBE 0.125 mg DAILY SIMA Administration Dronedarone 400 mg 09/21/20 17:00 09/23/20 17:32 Dronedarone Hcl 400 Mg Tab PO Not Given BID- SIMA Enoxaparin Sodium 30 mg 09/25/20 09:00 09/25/20 08:27 Enoxaparin Sodium 30 Mg/0.3 Ml Syringe SC 30 mg 0900 SIMA Administration Fentanyl 25 mcg 09/23/20 23:43 09/24/20 21:45 Fentanyl 100 Mcg/2 Ml Vial SLOW IVP 25 mcg Q2H PRN Administration Moderate to Severe Pain (6-10) Hydrocortisone Sodium Succinate 25 mg 09/24/20 18:00 09/25/20 11:19 Hydrocortisone Sod Succ/Pf 100 Mg/2 Ml Vial IVP 25 mg Q6HR SIMA Administration Aztreonam 1 gm/ Sodium 100 mls @ 100 mls/hr 09/23/20 22:00 09/25/20 13:28 Chloride IVPB 100 mls Q8HR SIMA Administration Metronidazole 500 mg/ Device 100 mls @ 100 mls/hr 09/23/20 18:00 09/25/20 11:19 IVPB 100 mls Q6HR SIMA Administration Levothyroxine Sodium 50 mcg 09/22/20 06:00 09/25/20 05:33 Levothyroxine Sodium 50 Mcg Tab PO 50 mcg 0600 SIMA Administration Metolazone 2.5 mg 09/22/20 08:30 09/25/20 08:22 Metolazone 2.5 Mg Tab PO 2.5 mg 0830 SIMA Administration Saccharomyces Boulardii 250 mg 09/25/20 09:00 09/25/20 08:17 Saccharomyces Boulardii 250 Mg Cap PO 250 mg BID SIMA Administration Sodium Chloride 10 ml 09/21/20 09:00 09/25/20 10:50 Flush - Normal Saline 10 Ml Syringe IVF 10 ml Q12HR SIMA Administration - Exam General Appearance: awake alert, ill appearing Eye: PERRL ENT: normocephalic atraumatic, no oropharyngeal lesions Neck: supple, symmetric, no JVD, no thyromegaly Heart: RRR, no murmur, no gallops, no rubs, normal peripheral pulses Gastrointestinal: soft, non-tender, non-distended, normal bowel sounds Extremities: no cyanosis Neurological: cranial nerve grossly intact, normal sensation to touch Musculoskeletal: normal tone, normal strength, no muscle wasting Psychiatric: normal affect, normal behavior, A&O x 3 Hosp A/P (1) Splenic rupture Code(s): S36.09XA - OTHER INJURY OF SPLEEN, INITIAL ENCOUNTER Status: Suspected (2) Acute respiratory failure with hypoxia Code(s): J96.01 - ACUTE RESPIRATORY FAILURE WITH HYPOXIA Status: Acute (3) Acute worsening of stage 3 chronic kidney disease Code(s): N18.30 - CHRONIC KIDNEY DISEASE, STAGE 3 UNSPECIFIED Status: Acute (4) Fever Code(s): R50.9 - FEVER, UNSPECIFIED Status: Acute (5) CLL (chronic lymphocytic leukemia) Code(s): C91.10 - CHRONIC LYMPHOCYTIC LEUK OF B-CELL TYPE NOT ACHIEVE REMIS Status: Acute - Plan old records reviewed/req, continue antibiotics, PT/OT, incentive spirometry, out of bed/ambulate #1. Acute respiratory failure with hypoxia. He remains intubated and mechanically ventilated. We appreciate pulmonary services. I will defer to them about weaning. 09/23/2020. He was just extubated earlier this morning and he seems to be doing well. Continue routine care. 09/24/20 He is now on room air. 2. Suspected traumatic splenic rupture. He is status post splenectomy. 09/23/2020. Continue routine postop care. 3. Shock; suspected sepsis versus hypovolemic. He is now on vasopressors. Cultures are collected and are still cooking. He is empirically on IV Zosyn. We will follow up on all the active cultures. His urine analysis was abnormal with positive leukocyte esterases but no nitrite. The urine culture however has remained negative to date. Blood cultures are also negative. 09/23/2020. Still no growth from any of his cultures. I will continue empiric antibiotics for now. 09/24/20 Still requiring vasopressors. 4. Acute kidney injury. This seems to have worsened some. We appreciate nephrology for the ongoing evaluations. 09/25/2020. Renal function appears to be back to normal. #5. History of CLL. 6. Debility. Aggressive PT
[2020-09-26] MEDS: Hydrocortisone Sod Succ/PF 100 mg/2 ml Vial IVP SCH ×5 (00:31→23:20)
[2020-09-26] MEDS: metroNIDAZOLE 500 MG in Premix Bag 1 BAG IVPB SCH ×5 (00:32→23:19)
[2020-09-26] MEDS: Acetaminophen 650 MG/20.3 ML UDCUP PO SCH ×4 (02:20→20:05)
[2020-09-26] MEDS: Levothyroxine Sodium 50 MCG TAB PO SCH (05:22)
[2020-09-26 06:31] LABS: BUN (Urea Nitrogen) 27 mg/dL (8.4-25.7); Calc. Creatinine Clearance 50 mL/min (70-130); Calcium 8.1 mg/dL (7.8-10.44); Carbon Dioxide 25 mmol/L (23-31); Chloride 114 mmol/L (98-107); Glucose 154 mg/dL (83-110); Potassium 3.1 mmol/L (3.5-5.1); Sodium 152 mmol/L (136-145)
[2020-09-26 06:36] LABS: Anion Gap 16 mmol/L (10-20)
[2020-09-26] MEDS: Aztreonam 1 GM in Sodium Chloride 0.9% 100 ML IVPB SCH ×3 (06:38→22:31)
[2020-09-26 06:59] LABS: Hemoglobin 7.3 g/dL (14.0-18.0); Mean Corpuscular HGB CONC 30.1 g/dL (32.0-36.0); Mean Corpuscular Hemoglobin 24.2 pg (27.0-31.0); Mean Corpuscular Volume 80.3 fL (78.0-98.0); Platelet Count 213 thou/uL (130-400); RBC Distribution Width 17.9 % (11.5-14.5); Red Blood Cell (RBC) Count 3.01 mill/uL (4.70-6.10); White Blood Cell (WBC) Count 8.9 thou/uL (4.8-10.8)
[2020-09-26] MEDS ORDERED: FLU VACC QS2020-21(65YR UP)/PF 240 MCG/0.7 ML SYRINGE IM ONE (08:30)
[2020-09-26] MEDS: Saccharomyces boulardii 250 MG CAP PO SCH ×2 (09:16→20:05)
[2020-09-26] MEDS: Dronedarone HCl 400 MG TAB PO SCH ×2 (09:16→16:04)
[2020-09-26] MEDS: Metolazone 2.5 MG TAB PO SCH (09:16)
[2020-09-26] MEDS: Digoxin 0.125 MG TAB PER TUBE SCH (09:16)
[2020-09-26] MEDS: Enoxaparin Sodium 30 MG/0.3 ML SYRINGE SC SCH (09:17)
[2020-09-26 09:28] LABS: Band 4 % (5-11); Basophilic Stippling SLIGHT = 1-2 cells (100X) (None Seen); Elliptocytes SLIGHT = 2-5 cells (100X) (0-1/hpf); Lymphocytes 10 % (21-51); MDiff Complete? YES; Monocytes 8 % (0-10); Myelocyte 1 % (0-0); Neutrophil 77 % (42-75); Nucleated RBC 2 % (0); Ovalocytes MODERATE= 6-15 cells (100X) (0-1/hpf); Platelet Morphology Comment Appears Adequate; Polychromasia MODERATE = 3-4 cells (100X) (0-2/hpf)
[2020-09-26 12:19] LABS: Phosphorus 2.7 mg/dL (2.3-4.7)
[2020-09-26] MEDS: Dextrose 5% in Water 1,000 ML IV SCH (16:04)
--- NOTE | 2020-09-26 16:29 | PDOC.NEPPN ---
- Subjective Encounter Date: 09/26/20 Subjective: Seen and examined. No new problem. Still on tube feeding. - Objective Vital Signs & Weight: Vital Signs (12 hours) Temp Pulse Resp BP Pulse Ox 09/26/20 13:49 86 18 100 09/26/20 11:27 98.6 F 92 16 137/84 94 L 09/26/20 07:14 98 14 97 09/26/20 07:07 99.1 F 99 16 119/55 L 96 Weight Admit Weight 157 lb 3.2 oz Weight 121 lb 6.4 oz Most Recent Monitor Data Heart Rate from ECG 95 NIBP 137/71 NIBP BP-Mean 93 Respiration from ECG 20 SpO2 100 I&O: 09/25/20 09/26/20 09/27/20 06:59 06:59 06:59 Intake Total 1898.5 1847 200 Output Total 2300 1530 Balance -401.5 317 200 Result Diagrams: 09/26/20 06:31 09/26/20 03:30 Nephrology ROS - Medication Medications: Active Medications Generic Name Dose Route Start Last Admin Trade Name Freq PRN Reason Stop Dose Admin Acetaminophen 650 mg 09/25/20 20:00 09/26/20 13:53 Acetaminophen 650 Mg/20.3 Ml Udcup PO 650 mg 0200,0800,1400,2000 SIMA Administration Acetaminophen/Codeine Phosphate 10 ml 09/23/20 15:57 09/24/20 22:38 Acetaminophen W/ Codeine 5 Ml Udcup PO 10 ml Q4H PRN Administration Severe Pain (7-10) Albuterol/Ipratropium 3 ml 09/23/20 19:00 09/26/20 13:49 Ipratropium/Albuterol Sulfate 3 Ml Neb NEB 3 ml [id number] SIMA Administration Digoxin 0.125 mg 09/22/20 09:00 09/26/20 09:16 Digoxin 0.125 Mg Tab PER TUBE 0.125 mg DAILY SIMA Administration Dronedarone 400 mg 09/21/20 17:00 09/26/20 16:04 Dronedarone Hcl 400 Mg Tab PO 400 mg BID-WM SIMA Administration Enoxaparin Sodium 30 mg 09/25/20 09:00 09/26/20 09:17 Enoxaparin Sodium 30 Mg/0.3 Ml Syringe SC 30 mg 0900 SIMA Administration Fentanyl 25 mcg 09/23/20 23:43 09/24/20 21:45 Fentanyl 100 Mcg/2 Ml Vial SLOW IVP 25 mcg Q2H PRN Administration Moderate to Severe Pain (6-10) Hydrocortisone Sodium Succinate 25 mg 09/24/20 18:00 09/26/20 12:17 Hydrocortisone Sod Succ/Pf 100 Mg/2 Ml Vial IVP 25 mg Q6HR SIMA Administration Aztreonam 1 gm/ Sodium 100 mls @ 100 mls/hr 09/23/20 22:00 09/26/20 13:54 Chloride IVPB 100 mls Q8HR SIMA Administration Metronidazole 500 mg/ Device 100 mls @ 100 mls/hr 09/23/20 18:00 09/26/20 12:18 IVPB 100 mls Q6HR SIMA Administration Dextrose/Water 1,000 mls @ 50 mls/hr 09/26/20 12:30 09/26/20 16:04 D5w IV 1,000 mls .Q20H SIMA Administration Levothyroxine Sodium 50 mcg 09/22/20 06:00 09/26/20 05:22 Levothyroxine Sodium 50 Mcg Tab PO 50 mcg 0600 SIMA Administration Metolazone 2.5 mg 09/22/20 08:30 09/26/20 09:16 Metolazone 2.5 Mg Tab PO 2.5 mg 0830 SIMA Administration Saccharomyces Boulardii 250 mg 09/25/20 09:00 09/26/20 09:16 Saccharomyces Boulardii 250 Mg Cap PO 250 mg BID SIMA Administration Sodium Chloride 10 ml 09/21/20 09:00 09/26/20 09:17 Flush - Normal Saline 10 Ml Syringe IVF Not Given Q12HR SIMA - Exam General Appearance: awake alert Eye: anicteric sclera ENT - other findings: dry lips Respiratory - other findings: Fair air entry bilaterally with scattered transmitted breath sound. Cardiovascular: RRR Gastrointestinal: soft, non-distended Extremities - other findings: mild to moderate edema of the extremities Neurological: CN's grossly intact, no focal deficits PSYCH: A&O x 3 Nephrology Results - Labs Result Diagrams: 09/26/20 06:31 09/26/20 03:30 Lab results: WBC 8.9 thou/uL (4.8-10.8) 09/26/20 06:31 Hgb 7.3 g/dL (14.0-18.0) L 09/26/20 06:31 Hct 24.1 % (42.0-52.0) L 09/26/20 06:31 MCV 80.3 fL (78.0-98.0) 09/26/20 06:31 Plt Count 213 thou/uL (130-400) 09/26/20 06:31 Neutrophils % 82.7 % (42.0-75.0) H 09/25/20 03:40 Band Neuts % (Manual) 4 % (5-11) L 09/26/20 06:31 ABG pH 7.51 (7.35-7.45) H 09/23/20 07:20 ABG pCO2 28.8 mmHg (35.0-45.0) L 09/23/20 07:20 ABG pO2 145.9 mmHg (> 60.0) H 09/23/20 07:20 Sodium 152 mmol/L (136-145) H 09/26/20 03:30 Potassium 3.1 mmol/L (3.5-5.1) L 09/26/20 03:30 Chloride 114 mmol/L (98-107) H 09/26/20 03:30 Carbon Dioxide 25 mmol/L (23-31) 09/26/20 03:30 BUN 27 mg/dL (8.4-25.7) H 09/26/20 03:30 Creatinine 0.89 mg/dL (0.7-1.3) 09/26/20 03:30 Glucose 154 mg/dL (83-110) H 09/26/20 03:30 Lactic Acid 1.8 mmol/L (0.5-2.2) 09/21/20 04:30 Calcium 8.1 mg/dL (7.8-10.44) 09/26/20 03:30 Total Bilirubin Less than 0.2 mg/dL (0.2-1.2) L 09/24/20 03:45 AST 14 U/L (5-34) 09/24/20 03:45 ALT Less than 7 U/L (8-55) L 09/24/20 03:45 Alkaline Phosphatase 126 U/L (40-110) H 09/24/20 03:45 CK-MB (CK-2) 0.7 ng/mL (0-6.6) 09/20/20 06:54 Troponin I 0.068 ng/mL (< 0.028) H 09/20/20 13:16 C-Reactive Protein 11.97 mg/dL (= or < 0.5) H 09/21/20 17:21 B-Natriuretic Peptide 433.6 pg/mL (0-100) H 09/21/20 09:48 Serum Total Protein 3.9 g/dL (5.8-8.1) L 09/24/20 03:45 Albumin 2.6 g/dL (3.4-4.8) L 09/24/20 03:45 Urine Ketones 10 mg/dL (Negative) A 09/21/20 01:00 Urine Blood 3+ (Negative) A 09/21/20 01:00 Urine Nitrite Negative (Negative) 09/21/20 01:00 Ur Leukocyte Esterase 250 Radha/uL (Negative) A 09/21/20 01:00 Urine RBC Greater than 50 HPF (0-3) A 09/21/20 01:00 Urine WBC 11- HPF (0-3) A 09/21/20 01:00 Ur Squamous Epith Cells None Seen HPF (0-3) 09/21/20 01:00 Urine Bacteria None Seen HPF (None Seen) 09/21/20 01:00 Sodium 152 mmol/L (136-145) H 09/26/20 03:30 Potassium 3.1 mmol/L (3.5-5.1) L 09/26/20 03:30 Chloride 114 mmol/L (98-107) H 09/26/20 03:30 Carbon Dioxide 25 mmol/L (23-31) 09/26/20 03:30 Anion Gap 16 mmol/L (10-20) 09/26/20 03:30 BUN 27 mg/dL (8.4-25.7) H 09/26/20 03:30 Creatinine 0.89 mg/dL (0.7-1.3) 09/26/20 03:30 Glucose 154 mg/dL (83-110) H 09/26/20 03:30 Calcium 8.1 mg/dL (7.8-10.44) 09/26/20 03:30 Phosphorus 2.7 mg/dL (2.3-4.7) 09/26/20 11:25 Magnesium 2.0 mg/dL (1.6-2.6) 09/26/20 11:25 Albumin 2.6 g/dL (3.4-4.8) L 09/24/20 03:45 Nephrology AP PN - Plan Hypernatremia: Due to water deficit. KAYLENE: Due to hemodynamic factors related to volume depletion from acute hemorrhage with superimposed cardiorenal due to acute CHF fluid resuscitation and atrial fibrillation. Resolved. Creat back to baseline CKD stage 3 Metabolic alkalosis: Due to intravascular contraction. Resolved Hypokalemia. Hypoalbuminemia Generalized edema Acute blood loss anemia iron deficiency anemia Cardiorenal syndrome. 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 Plan/Recommendation Increase free water flushes via NG to 100 cc every 4 hours Replete serum potassium with potassium chloride Continue diuretic therapy. Other treatment as per Trauma team. Follow electrolytes.
--- NOTE | 2020-09-26 16:45 | PDOC.HOSPP ---
- Subjective Encounter Date: 09/26/20 Encounter Time: 16:44 Subjective: Mr. Villalba was seen and evaluated. He was sleepy but his son was at the bedside when I visited him. He was just transferred to surgical floor earlier today. He continues on tube feeding. His serum sodium appears to have worsened slightly and we will try to give him some free water. - Objective Vital Signs & Weight: Vital Signs (12 hours) Temp Pulse Resp BP Pulse Ox 09/26/20 13:49 86 18 100 09/26/20 11:27 98.6 F 92 16 137/84 94 L 09/26/20 07:14 98 14 97 09/26/20 07:07 99.1 F 99 16 119/55 L 96 Weight Admit Weight 157 lb 3.2 oz Weight 121 lb 6.4 oz Most Recent Monitor Data Heart Rate from ECG 95 NIBP 137/71 NIBP BP-Mean 93 Respiration from ECG 20 SpO2 100 I&O: 09/25/20 09/26/20 09/27/20 06:59 06:59 06:59 Intake Total 1898.5 1847 400 Output Total 2300 1530 Balance -401.5 317 400 Result Diagrams: 09/26/20 06:31 09/26/20 03:30 Radiology Reviewed by me: Yes EKG Reviewed by me: Yes Hospitalist ROS - Review of Systems ROS unobtainable: due to mental status Constitutional: reports: weakness, malaise ENT: reports: mouth pain, mouth swelling - Medication Medications: Active Medications Generic Name Dose Route Start Last Admin Trade Name Freq PRN Reason Stop Dose Admin Acetaminophen 650 mg 09/25/20 20:00 09/26/20 13:53 Acetaminophen 650 Mg/20.3 Ml Udcup PO 650 mg 0200,0800,1400,2000 SIMA Administration Acetaminophen/Codeine Phosphate 10 ml 09/23/20 15:57 09/24/20 22:38 Acetaminophen W/ Codeine 5 Ml Udcup PO 10 ml Q4H PRN Administration Severe Pain (7-10) Albuterol/Ipratropium 3 ml 09/23/20 19:00 09/26/20 13:49 Ipratropium/Albuterol Sulfate 3 Ml Neb NEB 3 ml [id number] SIMA Administration Digoxin 0.125 mg 09/22/20 09:00 09/26/20 09:16 Digoxin 0.125 Mg Tab PER TUBE 0.125 mg DAILY SIMA Administration Dronedarone 400 mg 09/21/20 17:00 09/26/20 16:04 Dronedarone Hcl 400 Mg Tab PO 400 mg BID-WM SIMA Administration Enoxaparin Sodium 30 mg 09/25/20 09:00 09/26/20 09:17 Enoxaparin Sodium 30 Mg/0.3 Ml Syringe SC 30 mg 0900 SIMA Administration Fentanyl 25 mcg 09/23/20 23:43 09/24/20 21:45 Fentanyl 100 Mcg/2 Ml Vial SLOW IVP 25 mcg Q2H PRN Administration Moderate to Severe Pain (6-10) Hydrocortisone Sodium Succinate 25 mg 09/24/20 18:00 09/26/20 12:17 Hydrocortisone Sod Succ/Pf 100 Mg/2 Ml Vial IVP 25 mg Q6HR SIMA Administration Aztreonam 1 gm/ Sodium 100 mls @ 100 mls/hr 09/23/20 22:00 09/26/20 13:54 Chloride IVPB 100 mls Q8HR SIMA Administration Metronidazole 500 mg/ Device 100 mls @ 100 mls/hr 09/23/20 18:00 09/26/20 12:18 IVPB 100 mls Q6HR SIMA Administration Dextrose/Water 1,000 mls @ 50 mls/hr 09/26/20 12:30 09/26/20 16:04 D5w IV 1,000 mls .Q20H SIMA Administration Levothyroxine Sodium 50 mcg 09/22/20 06:00 09/26/20 05:22 Levothyroxine Sodium 50 Mcg Tab PO 50 mcg 0600 SIMA Administration Metolazone 2.5 mg 09/22/20 08:30 09/26/20 09:16 Metolazone 2.5 Mg Tab PO 2.5 mg 0830 SIMA Administration Saccharomyces Boulardii 250 mg 09/25/20 09:00 09/26/20 09:16 Saccharomyces Boulardii 250 Mg Cap PO 250 mg BID SIMA Administration Sodium Chloride 10 ml 09/21/20 09:00 09/26/20 09:17 Flush - Normal Saline 10 Ml Syringe IVF Not Given Q12HR SIMA - Exam General Appearance: NAD, ill appearing Eye: PERRL, anicteric sclera ENT: normocephalic atraumatic, dry oral mucosa Neck: supple, symmetric, no JVD, no thyromegaly, no lymphadenopathy Heart: RRR, no murmur, no gallops, no rubs, normal peripheral pulses Respiratory: CTAB, no wheezes, no rales, no ronchi, normal chest expansion Gastrointestinal: soft, non-tender, non-distended, normal bowel sounds, no palpable masses Extremities: no cyanosis, no clubbing, no edema, 1+ LE edema Skin: normal turgor, no lesions, no rashes Neurological: no focal deficits Musculoskeletal: generalized weakness Psychiatric: somnolent, lethargic Hosp A/P (1) Splenic rupture Code(s): S36.09XA - OTHER INJURY OF SPLEEN, INITIAL ENCOUNTER Status: Suspected (2) Acute respiratory failure with hypoxia Code(s): J96.01 - ACUTE RESPIRATORY FAILURE WITH HYPOXIA Status: Acute (3) Acute worsening of stage 3 chronic kidney disease Code(s): N18.30 - CHRONIC KIDNEY DISEASE, STAGE 3 UNSPECIFIED Status: Acute (4) Fever Code(s): R50.9 - FEVER, UNSPECIFIED Status: Acute (5) CLL (chronic lymphocytic leukemia) Code(s): C91.10 - CHRONIC LYMPHOCYTIC LEUK OF B-CELL TYPE NOT ACHIEVE REMIS Status: Acute - Plan old records reviewed/req, PT/OT, out of bed/ambulate #1. Acute respiratory failure with hypoxia. He remains intubated and mechanically ventilated. We appreciate pulmonary services. I will defer to them about weaning. 09/23/2020. He was just extubated earlier this morning and he seems to be doing well. Continue routine care. 09/24/20 He is now on room air. 2. Suspected traumatic splenic rupture. He is status post splenectomy. 09/23/2020. Continue routine postop care. 3. Shock; suspected sepsis versus hypovolemic. He is now on vasopressors. Cultures are collected and are still cooking. He is empirically on IV Zosyn. We will follow up on all the active cultures. His urine analysis was abnormal with positive leukocyte esterases but no nitrite. The urine culture however has remained negative to date. Blood cultures are also negative. 09/23/2020. Still no growth from any of his cultures. I will continue empiric antibiotics for now. 09/24/20 Still requiring vasopressors. 09/26/2020. Sepsis has resolved. His cultures remains without any growth. 4. Acute kidney injury. This seems to have worsened some. We appreciate nephrology for the ongoing evaluations. 09/25/2020. Renal function appears to be back to normal. #5. History of CLL. 6. Debility. Aggressive PT 7. Hypernatremia. His serum sodium has increased to 152. He might be a little bit dehydrated. I am going to try him on free water.
--- NOTE | 2020-09-26 22:38 | PRG ---
DATE OF SERVICE: 09/26/2020 SUBJECTIVE: The patient is currently on the surgical floor. He is postop day 6, status post exploratory laparotomy with splenectomy for history of splenomegaly with acute splenic rupture. The patient reports that he had a bowel movement last night. He is tolerating his tube feeds at a rate of 20 mL/h. Nurses report no other issues. PHYSICAL EXAMINATION: VITAL SIGNS: Temperature is 98.6, heart rate 92, blood pressure 137/84, respirations 16, and oxygen saturation 94% on room air. GENERAL: The patient is resting comfortably in bed, neurologically appears at baseline with a [place] Coma Scale of 13. HEENT: Unremarkable. LUNGS: Clear to auscultation bilaterally. ABDOMEN: Soft nondistended with hypoactive bowel sounds. His midline incision is clean and dry. LABORATORY FINDINGS: White blood cell count 8.9, hemoglobin 7.3, hematocrit at 24.1, platelets 213. Sodium 152, potassium 3.1, chloride 114, CO2 of 25, BUN 27, creatinine 0.89, glucose 154, magnesium 2.0, phosphorus 2.7. There are no radiographs reviewed this morning. ASSESSMENT/PLAN: 1. Status post exploratory laparotomy with splenectomy, postop day 6. 2. Acute blood loss anemia, stable. 3. Acute hypernatremia. 4. Acute hypokalemia. 5. Acute kidney injury, resolving. PLAN: Would be to advance his tube feeds to goal. Continue encouraging out of bed with physical and occupational therapy. Increase free water intake and correct electrolyte abnormalities. We will continue working towards placement. The patient was evaluated this morning with Dr. Penn. Job ID: [id number]
[2020-09-27] MEDS: Acetaminophen 650 MG/20.3 ML UDCUP PO SCH ×4 (02:56→21:05)
[2020-09-27] MEDS: Hydrocortisone Sod Succ/PF 100 mg/2 ml Vial IVP SCH (05:38)
[2020-09-27] MEDS: Levothyroxine Sodium 50 MCG TAB PO SCH (05:39)
[2020-09-27] MEDS: metroNIDAZOLE 500 MG in Premix Bag 1 BAG IVPB SCH (05:39)
[2020-09-27] MEDS: Aztreonam 1 GM in Sodium Chloride 0.9% 100 ML IVPB SCH (05:39)
[2020-09-27 06:14] LABS: Anion Gap 10 mmol/L (10-20); BUN (Urea Nitrogen) 25 mg/dL (8.4-25.7); Calc. Creatinine Clearance 49 mL/min (70-130); Calcium 8.6 mg/dL (7.8-10.44); Carbon Dioxide 34 mmol/L (23-31); Chloride 114 mmol/L (98-107); Glucose 224 mg/dL (83-110); Phosphorus 1.6 mg/dL (2.3-4.7); Potassium 2.5 mmol/L (3.5-5.1); Sodium 155 mmol/L (136-145)
[2020-09-27 06:15] LABS: Band 3 % (5-11); Hemoglobin 7.6 g/dL (14.0-18.0); Hypochromia SLIGHT = 6-15 cells (100X) (0-5/hpf); Lymphocytes 11 % (21-51); MDiff Complete? YES; Mean Corpuscular HGB CONC 30.2 g/dL (32.0-36.0); Mean Corpuscular Hemoglobin 24.5 pg (27.0-31.0); Mean Corpuscular Volume 80.8 fL (78.0-98.0); Mean Platelet Volume 11.6 fL (7.4-10.4); Monocytes 13 % (0-10); Neutrophil 73 % (42-75); Platelet Count 265 thou/uL (130-400); Platelet Morphology Comment Appears Adequate; RBC Distribution Width 18.1 % (11.5-14.5); White Blood Cell (WBC) Count 10.7 thou/uL (4.8-10.8)
[2020-09-27] MEDS ORDERED: Potassium Phosphate 30 MMOL in Sodium Chloride 0.9% 250 ML 250 ML IVPB SCH (06:45)
[2020-09-27] MEDS: Digoxin 0.125 MG TAB PER TUBE SCH (08:21)
[2020-09-27] MEDS: Saccharomyces boulardii 250 MG CAP PO SCH ×2 (08:22→21:05)
[2020-09-27] MEDS: Dronedarone HCl 400 MG TAB PO SCH ×2 (08:22→17:13)
[2020-09-27] MEDS: Metolazone 2.5 MG TAB PO SCH (08:22)
[2020-09-27] MEDS: Dextrose 5% in Water 1,000 ML IV SCH (08:23)
[2020-09-27] MEDS: Enoxaparin Sodium 30 MG/0.3 ML SYRINGE SC SCH (08:25)
[2020-09-27] MEDS ORDERED: Prevnar 13-Val Conj/PF 0.5 ML SYRINGE IM ONE (08:30)
[2020-09-27] MEDS: Ascorbic Acid 500 mg Chewable Tablet PO SCH (08:57)
[2020-09-27] MEDS ORDERED: Furosemide 20 MG/2 ML VIAL SLOW IVP SCH (09:45)
--- NOTE | 2020-09-27 15:33 | PDOC.HOSPP ---
- Subjective Encounter Date: 09/27/20 Encounter Time: 15:31 Subjective: Mr. Villalba was seen earlier today at the bedside. His was present when I visited. He continues to recover post splenectomy. Speech therapist continues to work with him. Ultimate plan is for him to go to a alf facility on discharge. His electrolytes abnormal. We appreciate nephrology for the ongoing help in correcting this electrolytes. - Objective Vital Signs & Weight: Vital Signs (12 hours) Temp Pulse Resp BP Pulse Ox 09/27/20 13:14 76 20 97 09/27/20 11: 97.5 F L 79 16 157/68 H 97 09/27/20 07:32 97.7 F 87 16 154/72 H 98 09/27/20 06:43 98 09/27/20 06:41 90 20 98 09/27/20 03:56 97.7 F 65 16 101/54 L 97 Weight Admit Weight 157 lb 3.2 oz Weight 121 lb 6.4 oz Most Recent Monitor Data Heart Rate from ECG 95 NIBP 137/71 NIBP BP-Mean 93 Respiration from ECG 20 SpO2 100 I&O: 09/26/20 09/27/20 09/28/20 06:59 06:59 06:59 Intake Total 1847 2901 200 Output Total 1530 2075 Balance 317 826 200 Result Diagrams: 09/27/20 05:17 09/27/20 05:17 Radiology Reviewed by me: Yes EKG Reviewed by me: Yes Hospitalist ROS - Review of Systems ROS unobtainable: due to mental status Constitutional: reports: weakness, malaise Cardiovascular: reports: chest pain Gastrointestinal: reports: nausea - Medication Medications: Active Medications Generic Name Dose Route Start Last Admin Trade Name Freq PRN Reason Stop Dose Admin Acetaminophen 650 mg 09/25/20 20:00 09/27/20 15:23 Acetaminophen 650 Mg/20.3 Ml Udcup PO 650 mg 0200,0800,1400,2000 SIMA Administration Acetaminophen/Codeine Phosphate 10 ml 09/23/20 15:57 09/24/20 22:38 Acetaminophen W/ Codeine 5 Ml Udcup PO 10 ml Q4H PRN Administration Severe Pain (7-10) Albuterol/Ipratropium 3 ml 09/23/20 19:00 09/27/20 13:14 Ipratropium/Albuterol Sulfate 3 Ml Neb NEB 3 ml [id number] SIMA Administration Ascorbic Acid 500 mg 09/27/20 09:00 09/27/20 08:57 Ascorbic Acid 500 Mg Chewable Tablet PO 500 mg DAILY SIMA Administration Digoxin 0.125 mg 09/22/20 09:00 09/27/20 08:21 Digoxin 0.125 Mg Tab PER TUBE 0.125 mg DAILY SIMA Administration Dronedarone 400 mg 09/21/20 17:00 09/27/20 08:22 Dronedarone Hcl 400 Mg Tab PO 400 mg BID-WM SIMA Administration Enoxaparin Sodium 30 mg 09/25/20 09:00 09/27/20 08:25 Enoxaparin Sodium 30 Mg/0.3 Ml Syringe SC 30 mg 0900 SIMA Administration Fentanyl 25 mcg 09/23/20 23:43 09/24/20 21:45 Fentanyl 100 Mcg/2 Ml Vial SLOW IVP 25 mcg Q2H PRN Administration Moderate to Severe Pain (6-10) Ferrous Sulfate 300 mg 09/27/20 09:00 09/27/20 08:57 Ferrous Sulfate 300 Mg/5 Ml Udcup PO 300 mg DAILY SIMA Administration Dextrose/Water 1,000 mls @ 50 mls/hr 09/26/20 12:30 09/27/20 08:23 D5w IV 1,000 mls .Q20H SIMA Administration Levothyroxine Sodium 50 mcg 09/22/20 06:00 09/27/20 05:39 Levothyroxine Sodium 50 Mcg Tab PO 50 mcg 0600 SIMA Administration Metolazone 2.5 mg 09/22/20 08:30 09/27/20 08:22 Metolazone 2.5 Mg Tab PO 2.5 mg 0830 SIMA Administration Saccharomyces Boulardii 250 mg 09/25/20 09:00 09/27/20 08:22 Saccharomyces Boulardii 250 Mg Cap PO 250 mg BID SIMA Administration Sodium Chloride 10 ml 09/21/20 09:00 09/27/20 08:26 Flush - Normal Saline 10 Ml Syringe IVF Not Given Q12HR SIMA - Exam General Appearance: awake alert, ill appearing Eye: PERRL, anicteric sclera ENT: normocephalic atraumatic, no oropharyngeal lesions, dry oral mucosa Neck: supple, symmetric, no JVD, no thyromegaly Heart: RRR, no murmur, no gallops Respiratory: CTAB, no wheezes, no rales, no ronchi, normal chest expansion Gastrointestinal: soft, non-tender, non-distended Extremities: no edema Musculoskeletal: generalized weakness, diffuse muscle atrophy Psychiatric: somnolent, lethargic Hosp A/P (1) Splenic rupture Code(s): S36.09XA - OTHER INJURY OF SPLEEN, INITIAL ENCOUNTER Status: Suspected (2) Acute respiratory failure with hypoxia Code(s): J96.01 - ACUTE RESPIRATORY FAILURE WITH HYPOXIA Status: Acute (3) Acute worsening of stage 3 chronic kidney disease Code(s): N18.30 - CHRONIC KIDNEY DISEASE, STAGE 3 UNSPECIFIED Status: Acute (4) Fever Code(s): R50.9 - FEVER, UNSPECIFIED Status: Acute (5) CLL (chronic lymphocytic leukemia) Code(s): C91.10 - CHRONIC LYMPHOCYTIC LEUK OF B-CELL TYPE NOT ACHIEVE REMIS Status: Acute - Plan gibson catheter, continue antibiotics, PT/OT, incentive spirometry, out of bed/ambulate, DVT proph w/lovenox #1. Acute respiratory failure with hypoxia. He remains intubated and mechanically ventilated. We appreciate pulmonary services. I will defer to them about weaning. 09/23/2020. He was just extubated earlier this morning and he seems to be doing well. Continue routine care. 09/24/20 He is now on room air. 2. Suspected traumatic splenic rupture. He is status post splenectomy. 09/23/2020. Continue routine postop care. 3. Shock; suspected sepsis versus hypovolemic. He is now on vasopressors. Cultures are collected and are still cooking. He is empirically on IV Zosyn. We will follow up on all the active cultures. His urine analysis was abnormal with positive leukocyte esterases but no nitrite. The urine culture however has remained negative to date. Blood cultures are also negative. 09/23/2020. Still no growth from any of his cultures. I will continue empiric antibiotics for now. 09/24/20 Still requiring vasopressors. 09/26/2020. Sepsis has resolved. His cultures remains without any growth. 4. Acute kidney injury. This seems to have worsened some. We appreciate nephrology for the ongoing evaluations. 09/25/2020. Renal function appears to be back to normal. #5. History of CLL. 6. Debility. Aggressive PT 7. Hypernatremia. His serum sodium has increased to 152. He might be a little bit dehydrated. I am going to try him on free water.
--- NOTE | 2020-09-27 20:45 | PRG ---
DATE OF SERVICE: HISTORY OF PRESENT ILLNESS: The patient remains on the surgical floor. He is postop day 7, status post exploratory laparotomy with splenectomy for fulminant splenomegaly with acute splenic rupture. The patient is tolerating his tube feeds at goal rate. He was evaluated once again by speech today and it was noted that he is still not considered safe for solids or liquids, but they do recommend ice chips by feeder. PHYSICAL EXAMINATION: VITAL SIGNS: Temperature 97.5, heart rate 79, blood pressure 157/68, respirations 16, and oxygen saturation 97% on room air. GENERAL: The patient is resting comfortably in bed. He appears at baseline. ABDOMEN: Soft, nontender. His postop dressing is clean, dry, and intact. He has no gross peritoneal signs. LABORATORY FINDINGS: WBC 10.7, hemoglobin 7.6, hematocrit 25.0, platelets 265. Sodium 155, potassium 2.5, chloride 114, CO2 34, BUN 25, creatinine 0.90, glucose 224, phosphorus 1.6, magnesium 2.0. There are no radiographs reviewed this morning. ASSESSMENT: 1. Status post exploratory laparotomy with splenectomy, postop day 7. 2. Acute blood loss anemia, stable. 3. Acute hypernatremia. 4. Acute hypokalemia. 5. Acute hypophosphatemia. 6. Acute kidney injury, resolved. 7. Acute albuminemia. PLAN: Will be to continue tube feeds at goal rate. Encourage physical and occupational therapy. We will increase free water once again. Replace potassium and phosphorus. Re-evaluate labs in the morning and continue working with speech therapy to hopefully begin oral nutrition. The patient was seen this morning with Dr. Penn. Job ID: [id number]
[2020-09-28] MEDS: Dextrose 5% in Water 1,000 ML IV SCH ×2 (00:56→05:54)
[2020-09-28] MEDS: Acetaminophen 650 MG/20.3 ML UDCUP PO SCH ×4 (03:08→21:09)
[2020-09-28 06:07] LABS: Hemoglobin 7.9 g/dL (14.0-18.0); Lymphocytes 16 % (21-51); MDiff Complete? YES; Mean Corpuscular HGB CONC 29.6 g/dL (32.0-36.0); Mean Corpuscular Hemoglobin 24.2 pg (27.0-31.0); Mean Corpuscular Volume 81.7 fL (78.0-98.0); Mean Platelet Volume 11.8 fL (7.4-10.4); Monocytes 9 % (0-10); Neutrophil 75 % (42-75); Platelet Count 336 thou/uL (130-400); Platelet Morphology Comment Appears Adequate; RBC Distribution Width 18.6 % (11.5-14.5); RBC Morphology Normal; Red Blood Cell (RBC) Count 3.28 mill/uL (4.70-6.10); White Blood Cell (WBC) Count 9.9 thou/uL (4.8-10.8)
[2020-09-28 06:12] LABS: Anion Gap 11 mmol/L (10-20); BUN (Urea Nitrogen) 23 mg/dL (8.4-25.7); Calc. Creatinine Clearance 55 mL/min (70-130); Calcium 8.7 mg/dL (7.8-10.44); Carbon Dioxide 36 mmol/L (23-31); Chloride 110 mmol/L (98-107); Glucose 207 mg/dL (83-110); Magnesium 1.9 mg/dL (1.6-2.6); Sodium 155 mmol/L (136-145)
[2020-09-28 06:19] LABS: Potassium 2.3 mmol/L (3.5-5.1)
[2020-09-28 06:20] LABS: Phosphorus 2.1 mg/dL (2.3-4.7)
[2020-09-28] MEDS: Levothyroxine Sodium 50 MCG TAB PO SCH (06:35)
[2020-09-28] MEDS ORDERED: Potassium Phosphate 30 MMOL in Sodium Chloride 0.9% 250 ML 250 ML IVPB SCH ×2 (06:45→20:00)
[2020-09-28] MEDS ORDERED: Furosemide 40 MG TAB PO SCH (09:00)
[2020-09-28] MEDS ORDERED: Potassium Chloride 40 MEQ in Sodium Chloride 0.9% 250 ML 250 ML IVPB SCH ×2 (09:00→20:30)
[2020-09-28] MEDS: Metolazone 2.5 MG TAB PO SCH (09:08)
[2020-09-28] MEDS: Enoxaparin Sodium 30 MG/0.3 ML SYRINGE SC SCH (09:08)
[2020-09-28] MEDS: Saccharomyces boulardii 250 MG CAP PO SCH ×2 (09:08→21:10)
[2020-09-28] MEDS: Dronedarone HCl 400 MG TAB PO SCH ×2 (09:08→17:12)
[2020-09-28] MEDS: Digoxin 0.125 MG TAB PER TUBE SCH (09:08)
[2020-09-28] MEDS: Ascorbic Acid 500 mg Chewable Tablet PO SCH (09:11)
--- NOTE | 2020-09-28 12:07 | PDOC.HOSPP ---
- Subjective Encounter Date: 09/28/20 Encounter Time: 12:05 Subjective: Patient seen and examined. Mr. Villalba is doing relatively well. His was at the bedside when I visited. He is tolerating his tube feeding. He has multiple electrolyte derangements that are in the process of being corrected. Ultimately plan is for the patient to go to SNF. - Objective Vital Signs & Weight: Vital Signs (12 hours) Temp Pulse Resp BP Pulse Ox 09/28/20 11:47 97.4 F L 85 18 144/69 H 98 09/28/20 09:08 83 09/28/20 08:25 100 09/28/20 08:01 97.6 F 69 10 L 161/71 H 100 09/28/20 07:49 69 20 100 09/28/20 03:16 97.6 F 87 18 157/80 H 99 09/28/20 00:59 64 20 98 09/28/20 00:10 97.4 F L 65 16 148/55 H 98 Weight Admit Weight 157 lb 3.2 oz Weight 121 lb 6.4 oz Most Recent Monitor Data Heart Rate from ECG 95 NIBP 137/71 NIBP BP-Mean 93 Respiration from ECG 20 SpO2 100 I&O: 09/27/20 09/28/20 09/29/20 06:59 06:59 06:59 Intake Total 2901 3990 200 Output Total 2075 3175 Balance 826 815 200 Result Diagrams: 09/28/20 05:38 09/28/20 05:38 Radiology Reviewed by me: Yes EKG Reviewed by me: Yes Hospitalist ROS - Review of Systems ROS unobtainable: due to mental status Constitutional: reports: weakness, malaise Eyes: reports: eyelid inflammation, redness ENT: reports: mouth pain - Medication Medications: Active Medications Generic Name Dose Route Start Last Admin Trade Name Freq PRN Reason Stop Dose Admin Acetaminophen 650 mg 09/25/20 20:00 09/28/20 09:10 Acetaminophen 650 Mg/20.3 Ml Udcup PO 650 mg 0200,0800,1400,2000 SIMA Administration Acetaminophen/Codeine Phosphate 10 ml 09/23/20 15:57 09/24/20 22:38 Acetaminophen W/ Codeine 5 Ml Udcup PO 10 ml Q4H PRN Administration Severe Pain (7-10) Albuterol/Ipratropium 3 ml 09/23/20 19:00 09/28/20 07:49 Ipratropium/Albuterol Sulfate 3 Ml Neb NEB 3 ml [id number] SIMA Administration Ascorbic Acid 500 mg 09/27/20 09:00 09/28/20 09:11 Ascorbic Acid 500 Mg Chewable Tablet PO 500 mg DAILY SIMA Administration Digoxin 0.125 mg 09/22/20 09:00 09/28/20 09:08 Digoxin 0.125 Mg Tab PER TUBE 0.125 mg DAILY SIMA Administration Dronedarone 400 mg 09/21/20 17:00 09/28/20 09:08 Dronedarone Hcl 400 Mg Tab PO 400 mg BID-WM SIMA Administration Enoxaparin Sodium 30 mg 09/25/20 09:00 09/28/20 09:08 Enoxaparin Sodium 30 Mg/0.3 Ml Syringe SC 30 mg 0900 SIMA Administration Fentanyl 25 mcg 09/23/20 23:43 09/24/20 21:45 Fentanyl 100 Mcg/2 Ml Vial SLOW IVP 25 mcg Q2H PRN Administration Moderate to Severe Pain (6-10) Ferrous Sulfate 300 mg 09/27/20 09:00 09/28/20 09:11 Ferrous Sulfate 300 Mg/5 Ml Udcup PO 300 mg DAILY SIMA Administration Furosemide 40 mg 09/28/20 09:00 09/28/20 09:11 Furosemide 40 Mg Tab PO 40 mg DAILY SIMA Administration Dextrose/Water 1,000 mls @ 50 mls/hr 09/26/20 12:30 09/28/20 00:56 D5w IV 1,000 mls .Q20H SIMA Administration Potassium Phosphate 30 mmol/ 260 mls @ 43.333 mls/hr 09/28/20 06:45 09/28/20 08:19 Sodium Chloride IVPB 09/28/20 14:00 260 mls NOW SIMA Administration Levothyroxine Sodium 50 mcg 09/22/20 06:00 09/28/20 06:35 Levothyroxine Sodium 50 Mcg Tab PO 50 mcg 0600 SIMA Administration Metolazone 2.5 mg 09/22/20 08:30 09/28/20 09:08 Metolazone 2.5 Mg Tab PO 2.5 mg 0830 SIMA Administration Saccharomyces Boulardii 250 mg 09/25/20 09:00 09/28/20 09:08 Saccharomyces Boulardii 250 Mg Cap PO 250 mg BID SIMA Administration Sodium Chloride 10 ml 09/21/20 09:00 09/28/20 09:11 Flush - Normal Saline 10 Ml Syringe IVF 10 ml Q12HR SIMA Administration - Exam General Appearance: awake alert, ill appearing Eye: PERRL, anicteric sclera ENT: normocephalic atraumatic, no oropharyngeal lesions Neck: supple, symmetric, no JVD, no thyromegaly Heart: RRR, no murmur, no gallops Respiratory: CTAB, no wheezes, no rales, no ronchi, normal chest expansion Gastrointestinal: soft, non-tender, non-distended, normal bowel sounds, no palpable masses Neurological: cranial nerve grossly intact Musculoskeletal: generalized weakness Psychiatric: normal affect, normal behavior, A&O x 3 Hosp A/P (1) Splenic rupture Code(s): S36.09XA - OTHER INJURY OF SPLEEN, INITIAL ENCOUNTER Status: Suspected (2) Acute respiratory failure with hypoxia Code(s): J96.01 - ACUTE RESPIRATORY FAILURE WITH HYPOXIA Status: Acute (3) Acute worsening of stage 3 chronic kidney disease Code(s): N18.30 - CHRONIC KIDNEY DISEASE, STAGE 3 UNSPECIFIED Status: Acute (4) Fever Code(s): R50.9 - FEVER, UNSPECIFIED Status: Acute (5) CLL (chronic lymphocytic leukemia) Code(s): C91.10 - CHRONIC LYMPHOCYTIC LEUK OF B-CELL TYPE NOT ACHIEVE REMIS Status: Acute (6) Hypokalemia Code(s): E87.6 - HYPOKALEMIA Status: Acute - Plan old records reviewed/req, PT/OT, speech therapy, out of bed/ambulate, DVT proph w/lovenox #1. Acute respiratory failure with hypoxia. He remains intubated and mechanically ventilated. We appreciate pulmonary services. I will defer to them about weaning. 09/23/2020. He was just extubated earlier this morning and he seems to be doing well. Continue routine care. 09/24/20 He is now on room air. 2. Suspected traumatic splenic rupture. He is status post splenectomy. 09/23/2020. Continue routine postop care. 3. Shock; suspected sepsis versus hypovolemic. He is now on vasopressors. Cultures are collected and are still cooking. He is empirically on IV Zosyn. We will follow up on all the active cultures. His urine analysis was abnormal with positive leukocyte esterases but no nitrite. The urine culture however has remained negative to date. Blood cultures are also negative. 09/23/2020. Still no growth from any of his cultures. I will continue empiric antibiotics for now. 09/24/20 Still requiring vasopressors. 09/26/2020. Sepsis has resolved. His cultures remains without any growth. 4. Acute kidney injury. This seems to have worsened some. We appreciate nephrology for the ongoing evaluations. 09/25/2020. Renal function appears to be back to normal. #5. History of CLL. 6. Debility. Aggressive PT 7. Hypernatremia. His serum sodium has increased to 152. He might be a little bit dehydrated. I am going to try him on free water. 8. Hypokalemia. This will be replaced.
--- NOTE | 2020-09-28 19:21 | PRG ---
DATE OF SERVICE: 09/28/2020 SUBJECTIVE: The patient is currently on the surgical floor. 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 The patient is tolerating his tube feeds at the goal rate. He is able to take ice chips, which his reports he is doing well and we are hoping that he continues to get re-evaluated by Speech Therapy, in hopes that he will eventually be able to take in oral nutrition. Overnight, he had no issues. OBJECTIVE: VITAL SIGNS: Temperature is 97.4, heart rate 85, blood pressure 144/69, respirations 18, and oxygen saturation 98% on room air. GENERAL: The patient is resting comfortably in bed. He appears more comfortable today than yesterday when I saw him. ABDOMEN: Soft and nontender with no gross peritoneal signs. His postop dressing is clean, dry, and intact. LABORATORY FINDINGS: White blood cell count 9.9, hemoglobin 7.9, hematocrit 26.8, and platelets 336. Sodium 155, potassium 2.3, chloride 110, CO2 of 36, BUN 23, creatinine 0.80, glucose 207, magnesium 1.9, and phosphorus 2.1. There are no radiographs reviewed this morning. ASSESSMENT AND PLAN: 1. Status post exploratory laparotomy with splenectomy postop day 8. 2. Acute blood loss anemia, stable. 3. Acute hyponatremia. 4. Acute hypokalemia. 5. Acute hypophosphatemia. 6. Acute kidney injury, resolved. Plan will be to continue tube feeds at goal rate. Electrolyte replacement. Increase free water and repeat labs this afternoon. We will encourage physical and occupational therapy and begin placement discussion. Job ID: [id number]
[2020-09-28 19:52] LABS: Anion Gap 16 mmol/L (10-20); BUN (Urea Nitrogen) 22 mg/dL (8.4-25.7); Calc. Creatinine Clearance 60 mL/min (70-130); Calcium 8.4 mg/dL (7.8-10.44); Carbon Dioxide 33 mmol/L (23-31); Chloride 107 mmol/L (98-107); Glucose 170 mg/dL (83-110); Magnesium 1.8 mg/dL (1.6-2.6); Potassium 2.9 mmol/L (3.5-5.1); Sodium 153 mmol/L (136-145)
[2020-09-28] MEDS ORDERED: Magnesium Sulfate 2 GM in Sodium Chloride 0.9% 250 ML 250 ML IVPB SCH (20:30)
[2020-09-29] MEDS: Dextrose 5% in Water 1,000 ML IV SCH ×2 (01:53→21:22)
[2020-09-29] MEDS: Acetaminophen 650 MG/20.3 ML UDCUP PO SCH ×4 (02:55→20:38)
[2020-09-29] MEDS: Levothyroxine Sodium 50 MCG TAB PO SCH (05:17)
[2020-09-29 05:22] LABS: BUN (Urea Nitrogen) 20 mg/dL (8.4-25.7); Calc. Creatinine Clearance 64 mL/min (70-130); Calcium 8.2 mg/dL (7.8-10.44); Glucose 225 mg/dL (83-110); Magnesium 2.2 mg/dL (1.6-2.6)
[2020-09-29 05:25] LABS: Phosphorus 2.4 mg/dL (2.3-4.7)
[2020-09-29 05:28] LABS: Elliptocytes MODERATE= 6-15 cells (100X) (0-1/hpf); Eosinophils 3 % (0-10); Hemoglobin 7.6 g/dL (14.0-18.0); Lymphocytes 17 % (21-51); MDiff Complete? YES; Mean Corpuscular HGB CONC 29.7 g/dL (32.0-36.0); Mean Platelet Volume 11.5 fL (7.4-10.4); Monocytes 11 % (0-10); Neutrophil 69 % (42-75); Platelet Count 369 thou/uL (130-400); Platelet Morphology Comment Appears Adequate; RBC Distribution Width 22.7 % (11.5-14.5); Red Blood Cell (RBC) Count 3.15 mill/uL (4.70-6.10); Target Cells SLIGHT = 2-5 cells (100X) (0-1/hpf); White Blood Cell (WBC) Count 10.7 thou/uL (4.8-10.8)
[2020-09-29 05:31] LABS: Anion Gap 16 mmol/L (10-20); Carbon Dioxide 33 mmol/L (23-31); Chloride 106 mmol/L (98-107); Sodium 152 mmol/L (136-145)
[2020-09-29 05:33] LABS: Potassium 2.7 mmol/L (3.5-5.1)
[2020-09-29] MEDS ORDERED: Potassium Chloride 40 MEQ in Premix Bag 1 BAG IVPB SCH (06:30)
[2020-09-29] MEDS: Ascorbic Acid 500 mg Chewable Tablet PO SCH (09:05)
[2020-09-29] MEDS: Digoxin 0.125 MG TAB PER TUBE SCH (09:05)
[2020-09-29] MEDS: Dronedarone HCl 400 MG TAB PO SCH ×2 (09:05→17:50)
[2020-09-29] MEDS: Saccharomyces boulardii 250 MG CAP PO SCH ×2 (09:06→20:38)
[2020-09-29] MEDS: Enoxaparin Sodium 30 MG/0.3 ML SYRINGE SC SCH (09:06)
[2020-09-29] MEDS: Metolazone 2.5 MG TAB PO SCH (09:24)
[2020-09-29] MEDS ORDERED: Potassium Chloride 40 MEQ in Sodium Chloride 0.9% 250 ML 250 ML IVPB SCH (12:00)
--- NOTE | 2020-09-29 13:51 | PDOC.HOSPP ---
- Subjective Encounter Date: 09/29/20 Encounter Time: 13:49 Subjective: Mr. Villalba was seen and evaluated. His was at the bedside when I visited. Speech therapy to attempt to advance his diet today. He is being evaluated for SNF placement. Hopefully this will happen early next week. - Objective Vital Signs & Weight: Vital Signs (12 hours) Temp Pulse Resp BP Pulse Ox 09/29/20 13:25 75 18 100 09/29/20 11:41 97.4 F L 59 L 18 136/56 L 97 09/29/20 09:05 77 09/29/20 08:20 97 09/29/20 07:35 97.4 F L 77 14 133/81 97 09/29/20 06:48 61 20 99 09/29/20 04:01 97.5 F L 60 20 128/64 100 Weight Admit Weight 157 lb 3.2 oz Weight 121 lb 6.4 oz Most Recent Monitor Data Heart Rate from ECG 95 NIBP 137/71 NIBP BP-Mean 93 Respiration from ECG 20 SpO2 100 I&O: 09/28/20 09/29/20 09/30/20 06:59 06:59 06:59 Intake Total 3990 6784 400 Output Total 3175 2650 Balance 815 4134 400 Result Diagrams: 09/29/20 04:40 09/29/20 04:40 Radiology Reviewed by me: Yes EKG Reviewed by me: Yes Hospitalist ROS - Review of Systems ROS unobtainable: due to mental status Eyes: reports: eyelid inflammation, redness Neurological: reports: weakness - Medication Medications: Active Medications Generic Name Dose Route Start Last Admin Trade Name Freq PRN Reason Stop Dose Admin Acetaminophen 650 mg 09/25/20 20:00 09/29/20 13:14 Acetaminophen 650 Mg/20.3 Ml Udcup PO 650 mg 0200,0800,1400,2000 SIMA Administration Acetaminophen/Codeine Phosphate 10 ml 09/23/20 15:57 09/24/20 22:38 Acetaminophen W/ Codeine 5 Ml Udcup PO 10 ml Q4H PRN Administration Severe Pain (7-10) Albuterol/Ipratropium 3 ml 09/23/20 19:00 09/29/20 13:25 Ipratropium/Albuterol Sulfate 3 Ml Neb NEB 3 ml [id number] SIMA Administration Ascorbic Acid 500 mg 09/27/20 09:00 09/29/20 09:05 Ascorbic Acid 500 Mg Chewable Tablet PO 500 mg DAILY SIMA Administration Digoxin 0.125 mg 09/22/20 09:00 09/29/20 09:05 Digoxin 0.125 Mg Tab PER TUBE 0.125 mg DAILY SIMA Administration Dronedarone 400 mg 09/21/20 17:00 09/29/20 09:05 Dronedarone Hcl 400 Mg Tab PO 400 mg BID- SIMA Administration Enoxaparin Sodium 30 mg 09/25/20 09:00 09/29/20 09:06 Enoxaparin Sodium 30 Mg/0.3 Ml Syringe SC 30 mg 00 SIMA Administration Fentanyl 25 mcg 09/23/20 23:43 09/24/20 21:45 Fentanyl 100 Mcg/2 Ml Vial SLOW IVP 25 mcg Q2H PRN Administration Moderate to Severe Pain (6-10) Ferrous Sulfate 300 mg 09/27/20 09:00 09/29/20 09:05 Ferrous Sulfate 300 Mg/5 Ml Udcup PO 300 mg DAILY SIMA Administration Dextrose/Water 1,000 mls @ 50 mls/hr 09/26/20 12:30 09/29/20 01:53 D5w IV Not Given .Q20H SIMA Potassium Chloride 40 meq/ 270 mls @ 67.5 mls/hr 09/29/20 12:00 09/29/20 13:14 Sodium Chloride IVPB 09/29/20 15:59 270 mls NOW SIMA Administration Levothyroxine Sodium 50 mcg 09/22/20 06:00 09/29/20 05:17 Levothyroxine Sodium 50 Mcg Tab PO 50 mcg 0600 SIMA Administration Saccharomyces Boulardii 250 mg 09/25/20 09:00 09/29/20 09:06 Saccharomyces Boulardii 250 Mg Cap PO 250 mg BID SIMA Administration Sodium Chloride 10 ml 09/21/20 09:00 09/29/20 09:07 Flush - Normal Saline 10 Ml Syringe IVF 10 ml Q12HR SIMA Administration - Exam General Appearance: NAD, ill appearing Eye: PERRL ENT: dry oral mucosa Neck: supple, symmetric, no JVD, no thyromegaly, no lymphadenopathy Heart: RRR, no murmur, no gallops, no rubs, normal peripheral pulses Respiratory: CTAB, no wheezes, no rales, no ronchi Gastrointestinal: soft, non-tender, non-distended, normal bowel sounds, no palpable masses Musculoskeletal: generalized weakness, diffuse muscle atrophy Psychiatric: oriented to person, somnolent Hosp A/P (1) Splenic rupture Code(s): S36.09XA - OTHER INJURY OF SPLEEN, INITIAL ENCOUNTER Status: Suspected (2) Acute respiratory failure with hypoxia Code(s): J96.01 - ACUTE RESPIRATORY FAILURE WITH HYPOXIA Status: Acute (3) Acute worsening of stage 3 chronic kidney disease Code(s): N18.30 - CHRONIC KIDNEY DISEASE, STAGE 3 UNSPECIFIED Status: Acute (4) Fever Code(s): R50.9 - FEVER, UNSPECIFIED Status: Acute (5) CLL (chronic lymphocytic leukemia) Code(s): C91.10 - CHRONIC LYMPHOCYTIC LEUK OF B-CELL TYPE NOT ACHIEVE REMIS Status: Acute (6) Hypokalemia Code(s): E87.6 - HYPOKALEMIA Status: Acute - Plan #1. Acute respiratory failure with hypoxia. He remains intubated and mechanically ventilated. We appreciate pulmonary services. I will defer to them about weaning. 09/23/2020. He was just extubated earlier this morning and he seems to be doing well. Continue routine care. 09/24/20 He is now on room air. 2. Suspected traumatic splenic rupture. He is status post splenectomy. 09/23/2020. Continue routine postop care. 3. Shock; suspected sepsis versus hypovolemic. He is now on vasopressors. Cultures are collected and are still cooking. He is empirically on IV Zosyn. We will follow up on all the active cultures. His urine analysis was abnormal with positive leukocyte esterases but no nitrite. The urine culture however has remained negative to date. Blood c ultures are also negative. 09/23/2020. Still no growth from any of his cultures. I will continue empiric antibiotics for now. 09/24/20 Still requiring vasopressors. 09/26/2020. Sepsis has resolved. His cultures remains without any growth. 4. Acute kidney injury. This seems to have worsened some. We appreciate nephrology for the ongoing evaluations. 09/25/2020. Renal function appears to be back to normal. #5. History of CLL. 6. Debility. Aggressive PT 7. Hypernatremia. His serum sodium has increased to 152. He might be a little bit dehydrated. I am going to try him on free water. 8. Hypokalemia. This will be replaced.
[2020-09-29 16:40] LABS: Albumin 1.5 g/dL (3.4-4.8); Anion Gap 17 mmol/L (10-20); BUN (Urea Nitrogen) 21 mg/dL (8.4-25.7); BUN/Creatinine Ratio 32.31; Calc. Creatinine Clearance 68 mL/min (70-130); Calcium 7.4 mg/dL (7.8-10.44); Carbon Dioxide 30 mmol/L (23-31); Chloride 110 mmol/L (98-107); Glucose 206 mg/dL (83-110); Phosphorus 2.8 mg/dL (2.3-4.7); Potassium 5.9 mmol/L (3.5-5.1); Sodium 151 mmol/L (136-145)
--- NOTE | 2020-09-29 19:28 | PDOC.NEPPN ---
- Subjective Encounter Date: 09/29/20 Subjective: Seen in follow up for for hypernatremia.Still on tube feeding. - Objective Vital Signs & Weight: Vital Signs (12 hours) Temp Pulse Resp BP Pulse Ox 09/29/20 19:04 97.6 F 79 18 138/56 L 96 09/29/20 15:30 97.5 F L 71 18 126/72 99 09/29/20 13:25 75 18 100 09/29/20 11:41 97.4 F L 59 L 18 136/56 L 97 09/29/20 09:05 77 09/29/20 08:20 97 09/29/20 07:35 97.4 F L 77 14 133/81 97 Weight Admit Weight 157 lb 3.2 oz Weight 121 lb 6.4 oz Most Recent Monitor Data Heart Rate from ECG 95 NIBP 137/71 NIBP BP-Mean 93 Respiration from ECG 20 SpO2 100 I&O: 09/28/20 09/29/20 09/30/20 06:59 06:59 06:59 Intake Total 3990 6784 3070 Output Total 3175 2650 825 Balance 815 5434 9655 Result Diagrams: 09/29/20 04:40 09/29/20 16:11 Nephrology ROS - Medication Medications: Active Medications Generic Name Dose Route Start Last Admin Trade Name Isaiahq PRN Reason Stop Dose Admin Acetaminophen 650 mg 09/25/20 20:00 09/29/20 13:14 Acetaminophen 650 Mg/20.3 Ml Udcup PO 650 mg 0200,0800,1400,2000 SIMA Administration Acetaminophen/Codeine Phosphate 10 ml 09/23/20 15:57 09/24/20 22:38 Acetaminophen W/ Codeine 5 Ml Udcup PO 10 ml Q4H PRN Administration Severe Pain (7-10) Albuterol/Ipratropium 3 ml 09/23/20 19:00 09/29/20 13:25 Ipratropium/Albuterol Sulfate 3 Ml Neb NEB 3 ml [id number] SIMA Administration Ascorbic Acid 500 mg 09/27/20 09:00 09/29/20 09:05 Ascorbic Acid 500 Mg Chewable Tablet PO 500 mg DAILY SIMA Administration Digoxin 0.125 mg 09/22/20 09:00 09/29/20 09:05 Digoxin 0.125 Mg Tab PER TUBE 0.125 mg DAILY SIMA Administration Dronedarone 400 mg 09/21/20 17:00 09/29/20 17:50 Dronedarone Hcl 400 Mg Tab PO 400 mg BID-WM SIMA Administration Enoxaparin Sodium 30 mg 09/25/20 09:00 09/29/20 09:06 Enoxaparin Sodium 30 Mg/0.3 Ml Syringe SC 30 mg 0900 SIMA Administration Fentanyl 25 mcg 09/23/20 23:43 09/24/20 21:45 Fentanyl 100 Mcg/2 Ml Vial SLOW IVP 25 mcg Q2H PRN Administration Moderate to Severe Pain (6-10) Ferrous Sulfate 300 mg 09/27/20 09:00 09/29/20 09:05 Ferrous Sulfate 300 Mg/5 Ml Udcup PO 300 mg DAILY SIMA Administration Dextrose/Water 1,000 mls @ 50 mls/hr 09/26/20 12:30 09/29/20 01:53 D5w IV Not Given .Q20H SIMA Levothyroxine Sodium 50 mcg 09/22/20 06:00 09/29/20 05:17 Levothyroxine Sodium 50 Mcg Tab PO 50 mcg 0600 SIMA Administration Saccharomyces Boulardii 250 mg 09/25/20 09:00 09/29/20 09:06 Saccharomyces Boulardii 250 Mg Cap PO 250 mg BID SIMA Administration Sodium Chloride 10 ml 09/21/20 09:00 09/29/20 09:07 Flush - Normal Saline 10 Ml Syringe IVF 10 ml Q12HR SIMA Administration - Exam General Appearance: awake alert General - other findings: chronically ill looking, fatigued ENT: normocephalic atraumatic Respiratory - other findings: Fair air entry bilaterally Gastrointestinal: soft, non-distended, normal bowel sounds Extremities - other findings: edema of the extremities noted Neurological: CN's grossly intact, no focal deficits Musculoskeletal: generalized weakness PSYCH: A&O x 3 Nephrology Results - Labs Result Diagrams: 09/29/20 04:40 09/29/20 16:11 Lab results: WBC 10.7 thou/uL (4.8-10.8) 09/29/20 04:40 Hgb 7.6 g/dL (14.0-18.0) L 09/29/20 04:40 Hct 25.5 % (42.0-52.0) L 09/29/20 04:40 MCV 81.0 fL (78.0-98.0) 09/29/20 04:40 Plt Count 369 thou/uL (130-400) 09/29/20 04:40 Neutrophils % 82.7 % (42.0-75.0) H 09/25/20 03:40 Band Neuts % (Manual) 3 % (5-11) L 09/27/20 05:17 ABG pH 7.51 (7.35-7.45) H 09/23/20 07:20 ABG pCO2 28.8 mmHg (35.0-45.0) L 09/23/20 07:20 ABG pO2 145.9 mmHg (> 60.0) H 09/23/20 07:20 Sodium 151 mmol/L (136-145) H 09/29/20 16:11 Potassium 5.9 mmol/L (3.5-5.1) H 09/29/20 16:11 Chloride 110 mmol/L (98-107) H 09/29/20 16:11 Carbon Dioxide 30 mmol/L (23-31) 09/29/20 16:11 BUN 21 mg/dL (8.4-25.7) 09/29/20 16:11 Creatinine 0.65 mg/dL (0.7-1.3) L 09/29/20 16:11 Glucose 206 mg/dL (83-110) H 09/29/20 16:11 Lactic Acid 1.8 mmol/L (0.5-2.2) 09/21/20 04:30 Calcium 7.4 mg/dL (7.8-10.44) L 09/29/20 16:11 Total Bilirubin Less than 0.2 mg/dL (0.2-1.2) L 09/24/20 03:45 AST 14 U/L (5-34) 09/24/20 03:45 ALT Less than 7 U/L (8-55) L 09/24/20 03:45 Alkaline Phosphatase 126 U/L (40-110) H 09/24/20 03:45 CK-MB (CK-2) 0.7 ng/mL (0-6.6) 09/20/20 06:54 Troponin I 0.068 ng/mL (< 0.028) H 09/20/20 13:16 C-Reactive Protein 11.97 mg/dL (= or < 0.5) H 09/21/20 17:21 B-Natriuretic Peptide 433.6 pg/mL (0-100) H 09/21/20 09:48 Serum Total Protein 3.9 g/dL (5.8-8.1) L 09/24/20 03:45 Albumin 1.5 g/dL (3.4-4.8) L 09/29/20 16:11 Urine Ketones 10 mg/dL (Negative) A 09/21/20 01:00 Urine Blood 3+ (Negative) A 09/21/20 01:00 Urine Nitrite Negative (Negative) 09/21/20 01:00 Ur Leukocyte Esterase 250 Radha/uL (Negative) A 09/21/20 01:00 Urine RBC Greater than 50 HPF (0-3) A 09/21/20 01:00 Urine WBC 11-20 HPF (0-3) A 09/21/20 01:00 Ur Squamous Epith Cells None Seen HPF (0-3) 09/21/20 01:00 Urine Bacteria None Seen HPF (None Seen) 09/21/20 01:00 Sodium 151 mmol/L (136-145) H 09/29/20 16:11 Potassium 5.9 mmol/L (3.5-5.1) H 09/29/20 16:11 Chloride 110 mmol/L (98-107) H 09/29/20 16:11 Carbon Dioxide 30 mmol/L (23-31) 09/29/20 16:11 Anion Gap 17 mmol/L (10-20) 09/29/20 16:11 BUN 21 mg/dL (8.4-25.7) 09/29/20 16:11 Creatinine 0.65 mg/dL (0.7-1.3) L 09/29/20 16:11 Glucose 206 mg/dL (83-110) H 09/29/20 16:11 Calcium 7.4 mg/dL (7.8-10.44) L 09/29/20 16:11 Phosphorus 2.8 mg/dL (2.3-4.7) 09/29/20 16:11 Magnesium 2.2 mg/dL (1.6-2.6) 09/29/20 04:40 Albumin 1.5 g/dL (3.4-4.8) L 09/29/20 16:11 Nephrology AP PN - Plan Hyperkalemia: due to excessive supplementation. Hypernatremia: Due to water deficit. KAYLENE: Due to hemodynamic factors related to volume depletion from acute hemorrhage with superimposed cardiorenal due to acute CHF fluid resuscitation and atrial fibrillation. Resolved. Creat back to baseline CKD stage 3 Metabolic alkalosis: Due to intravascular contraction. Resolved Hypokalemia. Hypoalbuminemia: worse with albumin of 1.5 Generalized edema Acute blood loss anemia iron deficiency anemia Cardiorenal syndrome. 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 Plan/Recommendation Start albumin. Give additional lasix given hyperkalemia Continue free water flushes Follow electrolytes.
[2020-09-29] MEDS ORDERED: Furosemide 20 MG/2 ML VIAL SLOW IVP SCH (19:45)
[2020-09-29] MEDS: Albumin 25% 25 GM/100 ML BOT IVPB SCH (20:38)
--- NOTE | 2020-09-29 21:50 | PRG ---
DATE OF SERVICE: 09/29/2020 SUBJECTIVE: The patient remains on the surgical floor. He is postop day #9 status post exploratory laparotomy with splenectomy for fulminant splenomegaly with acute splenic rupture. The patient is at goal and has been at goal with his tube feeds for the last 48 hours. He is tolerating these well. The patient is making adequate urine and has started to have loose bowel movements. The patient denies any nausea. He is awaiting to get reassessed by Speech Therapy to hopefully begin his oral nutrition. He is able to tolerate and swallow ice chips. PHYSICAL EXAMINATION: VITAL SIGNS: Temperature is 97.5, heart rate 71, blood pressure 126/72, respirations 18, oxygen saturation 99% on room air. GENERAL: The patient is resting comfortably in a chair at bedside. He is holding himself up without difficulty and this is probably the best I have seen him since this hospital stay. ABDOMEN: Soft, nontender with no gross peritoneal signs. He has active bowel sounds. LABORATORY FINDINGS: White blood cell count 10.7, hemoglobin 7.6, hematocrit 25.5, platelets 69. Sodium 151, potassium 5.9, chloride 110, CO2 of 30, BUN 21, creatinine 0.65, glucose 206, phosphorus 2.2, magnesium 2.4. ASSESSMENT/PLAN: 1. Status post exploratory laparotomy, splenectomy postop day #9. 2. Acute blood loss anemia, stable. 3. Acute hypernatremia. 4. Acute hyperkalemia. The patient was hypokalemic early this morning and has had replacement, unsure if his latest lab is accurate. We will repeat his labs. 5. Acute kidney injury, resolved. PLAN: Will be to continue supportive care, await ability to take oral nutrition. Repeat labs. Encourage out of bed and await placement. Job ID: [id number]
[2020-09-30] MEDS: Acetaminophen 650 MG/20.3 ML UDCUP PO SCH ×4 (01:44→19:59)
[2020-09-30] MEDS: Albumin 25% 25 GM/100 ML BOT IVPB SCH ×3 (01:45→15:38)
[2020-09-30] MEDS: Levothyroxine Sodium 50 MCG TAB PO SCH (06:19)
[2020-09-30] MEDS: Enoxaparin Sodium 30 MG/0.3 ML SYRINGE SC SCH (08:39)
[2020-09-30] MEDS: Saccharomyces boulardii 250 MG CAP PO SCH ×2 (08:40→19:59)
[2020-09-30] MEDS: Ascorbic Acid 500 mg Chewable Tablet PO SCH (08:40)
[2020-09-30] MEDS: Dronedarone HCl 400 MG TAB PO SCH ×2 (08:40→17:40)
[2020-09-30] MEDS: Digoxin 0.125 MG TAB PER TUBE SCH (08:40)
[2020-09-30] MEDS ORDERED: Furosemide 40 MG/4 ML VIAL SLOW IVP SCH (08:45)
[2020-09-30 09:40] LABS: Anion Gap 14 mmol/L (10-20); BUN (Urea Nitrogen) 17 mg/dL (8.4-25.7); Calc. Creatinine Clearance 67 mL/min (70-130); Calcium 8.2 mg/dL (7.8-10.44); Carbon Dioxide 35 mmol/L (23-31); Chloride 100 mmol/L (98-107); Glucose 203 mg/dL (83-110); Potassium 3.1 mmol/L (3.5-5.1); Sodium 146 mmol/L (136-145)
[2020-09-30 11:12] LABS: #Eosinphils 0.5 thou/uL (0.0-0.7); #Lymphocytes 2.2 thou/uL (1.20-3.40); #Monocytes 0.7 thou/uL (0.11-0.59); #Neutrophils 10.4 thou/uL (1.40-6.50); %Basophils 0.1 % (0.0-1.0); %Eosinophils 3.5 % (0.0-10.0); %Monocytes 4.9 % (0.0-10.0); %Neutrophils 75.6 % (42.0-75.0); Anisocytosis MODERATE=16-30 cells (100X) (0-5/hpf); Band 4 % (5-11); Elliptocytes SLIGHT = 2-5 cells (100X) (0-1/hpf); Eosinophils 1 % (0-10); Hemoglobin 6.8 g/dL (14.0-18.0); Hypochromia SLIGHT = 6-15 cells (100X) (0-5/hpf); Lymphocytes 13 % (21-51); MDiff Complete? YES; Mean Corpuscular HGB CONC 29.5 g/dL (32.0-36.0); Mean Corpuscular Hemoglobin 23.9 pg (27.0-31.0); Mean Corpuscular Volume 80.9 fL (78.0-98.0); Mean Platelet Volume 11.7 fL (7.4-10.4); Monocytes 2 % (0-10); Neutrophil 75 % (42-75); Nucleated RBC 4 % (0); Ovalocytes SLIGHT = 2-5 cells (100X) (0-1/hpf); Platelet Count 364 thou/uL (130-400); Platelet Morphology Comment Appears Adequate; Polychromasia MODERATE = 3-4 cells (100X) (0-2/hpf); RBC Distribution Width 23.3 % (11.5-14.5); Reactive Lymphocytes 4 % (0-10); Red Blood Cell (RBC) Count 2.85 mill/uL (4.70-6.10); Reflex for Review?? NO; Schistocytes SLIGHT = 2-5 cells (100X) (0-1/hpf); Tear Drops SLIGHT = 2-5 cells (100X) (0-1/hpf); White Blood Cell (WBC) Count 13.8 thou/uL (4.8-10.8)
[2020-09-30] MEDS ORDERED: Potassium Chloride 20 MEQ TAB PO SCH (14:00)
--- NOTE | 2020-09-30 14:18 | PRG ---
DATE OF SERVICE: 09/30/2020 SUBJECTIVE: Mr. Villalba is an 80-year-old man, postoperative day #9, status post exploratory laparotomy and splenectomy for massive splenomegaly with acute rupture. The patient is awake and alert this morning, reporting adequate pain control. He is tolerating clear liquid diet. He is also tolerating tube feeds and is having bowel movements. Urinary output is adequate for this patient's age and weight. OBJECTIVE: VITAL SIGNS: Today include blood pressure 166/64, pulse is 80, respiratory rate is 16, temperature is 98.1 degrees Fahrenheit, and oxygen saturation 96% on room air. HEENT: Pupils are equal, round, reactive to light and accommodation. HEART: Reveals regular rate and rhythm. LUNGS: Clear to auscultation bilaterally. Breathing, regular and nonlabored. ABDOMEN: Soft, nontender, and nondistended. Incision is intact, clean, and dry. NEUROLOGIC: Reveals no focal deficits present. LABORATORY FINDINGS: Today include a CBC with 13,800 white blood cells, hemoglobin and hematocrit 6.8 and 23.0 respectively. Platelet count is 364,000. Metabolic profile; sodium 146, potassium 3.1, chloride is 100, bicarb is 35, BUN 17, creatinine 0.66, and glucose 203. IMPRESSION: 1. Postoperative day #9, status post exploratory laparotomy with splenectomy. 2. Acute hypokalemia. 3. Acute blood-loss anemia. PLAN: 1. Correct abnormal electrolytes. 2. The patient will be transfused 1 unit of packed red blood cells. 3. Increase diet as recommended by Speech and Language Pathology. 4. We will continue with enteral nutritional supplementation, hopefully, nocturnal to allow the patient opportunity to eat during daytime. 5. Increase activity per Physical and Occupational therapy. 6. The patient will certainly require inpatient rehabilitation postdischarge. 7. General Surgery will sign off this case and be available to re-evaluate the patient on demand. 8. The patient is to follow up with me in the Surgery Clinic in 2 weeks. Job ID: [id number]
[2020-09-30] MEDS ORDERED: Albumin 25% 25 GM/100 ML BOT IVPB SCH (15:30)
--- NOTE | 2020-09-30 16:21 | PDOC.NEPPN ---
- Subjective Encounter Date: 09/30/20 Subjective: Seen. No new problem. Swelling is better. - Objective Vital Signs & Weight: Vital Signs (12 hours) Temp Pulse Resp BP Pulse Ox 09/30/20 15:29 98.4 F 72 14 170/62 H 97 09/30/20 12:05 98.3 F 62 18 153/71 H 100 09/30/20 08:40 80 09/30/20 08:14 98.1 F 80 16 166/64 H 96 09/30/20 06:38 69 18 100 Weight Admit Weight 157 lb 3.2 oz Weight 121 lb 6.4 oz Most Recent Monitor Data Heart Rate from ECG 95 NIBP 137/71 NIBP BP-Mean 93 Respiration from ECG 20 SpO2 100 I&O: 09/29/20 09/30/20 10/01/20 06:59 06:59 06:59 Intake Total 6784 4910 Output Total 2650 5 Balance 4134 2885 Result Diagrams: 09/30/20 15:05 09/30/20 09:08 Nephrology ROS - Medication Medications: Active Medications Generic Name Dose Route Start Last Admin Trade Name Freq PRN Reason Stop Dose Admin Acetaminophen 650 mg 09/25/20 20:00 09/30/20 15:38 Acetaminophen 650 Mg/20.3 Ml Udcup PO 650 mg 0200,0800,1400,1999 SIMA Administration Acetaminophen/Codeine Phosphate 10 ml 09/23/20 15:57 09/24/20 22:38 Acetaminophen W/ Codeine 5 Ml Udcup PO 10 ml Q4H PRN Administration Severe Pain (7-10) Albumin Human 25 gm 09/30/20 15:30 09/30/20 15:40 Albumin 25% 25 Gm/100 Ml Bot IVPB 09/30/20 18:00 Not Given NOW SIMA Albuterol/Ipratropium 3 ml 09/23/20 19:00 09/30/20 13:17 Ipratropium/Albuterol Sulfate 3 Ml Neb NEB 3 ml [id number] SIMA Administration Ascorbic Acid 500 mg 09/27/20 09:00 09/30/20 08:40 Ascorbic Acid 500 Mg Chewable Tablet PO 500 mg DAILY SIMA Administration Digoxin 0.125 mg 09/22/20 09:00 09/30/20 08:40 Digoxin 0.125 Mg Tab PER TUBE 0.125 mg DAILY SIMA Administration Dronedarone 400 mg 09/21/20 17:00 09/30/20 08:40 Dronedarone Hcl 400 Mg Tab PO 400 mg BID-WM SIMA Administration Enoxaparin Sodium 30 mg 09/25/20 09:00 09/30/20 08:39 Enoxaparin Sodium 30 Mg/0.3 Ml Syringe SC 30 mg 0900 SIMA Administration Fentanyl 25 mcg 09/23/20 23:43 09/24/20 21:45 Fentanyl 100 Mcg/2 Ml Vial SLOW IVP 25 mcg Q2H PRN Administration Moderate to Severe Pain (6-10) Ferrous Sulfate 300 mg 09/27/20 09:00 09/30/20 08:39 Ferrous Sulfate 300 Mg/5 Ml Udcup PO 300 mg DAILY SIMA Administration Dextrose/Water 1,000 mls @ 50 mls/hr 09/26/20 12:30 09/29/20 21:22 D5w IV Not Given .Q20H SIMA Levothyroxine Sodium 50 mcg 09/22/20 06:00 09/30/20 06:19 Levothyroxine Sodium 50 Mcg Tab PO 50 mcg 0600 SIMA Administration Saccharomyces Boulardii 250 mg 09/25/20 09:00 09/30/20 08:40 Saccharomyces Boulardii 250 Mg Cap PO 250 mg BID SIMA Administration Sodium Chloride 10 ml 09/21/20 09:00 09/30/20 08:40 Flush - Normal Saline 10 Ml Syringe IVF 10 ml Q12HR SIMA Administration - Exam General Appearance: awake alert ENT: normocephalic atraumatic Neck: symmetric Respiratory - other findings: fair air entry with some transmitted sound Cardiovascular: RRR Gastrointestinal: soft, non-distended, normal bowel sounds Gastrointestinal - other findings: surgical wound noted Extremities - other findings: mild edema of the legs and right upper limb. Moderate edema of LUE Neurological: CN's grossly intact PSYCH: A&O x 3 Nephrology Results - Labs Result Diagrams: 09/30/20 15:05 09/30/20 09:08 Lab results: WBC 13.8 thou/uL (4.8-10.8) H 09/30/20 09:08 Hgb 7.0 g/dL (14.0-18.0) L 09/30/20 15:05 Hct 23.2 % (42.0-52.0) L 09/30/20 15:05 MCV 80.9 fL (78.0-98.0) 09/30/20 09:08 Plt Count 364 thou/uL (130-400) 09/30/20 09:08 Neutrophils % 75.6 % (42.0-75.0) H 09/30/20 09:08 Band Neuts % (Manual) 4 % (5-11) L 09/30/20 09:08 ABG pH 7.51 (7.35-7.45) H 09/23/20 07:20 ABG pCO2 28.8 mmHg (35.0-45.0) L 09/23/20 07:20 ABG pO2 145.9 mmHg (> 60.0) H 09/23/20 07:20 Sodium 146 mmol/L (136-145) H 09/30/20 09:08 Potassium 3.1 mmol/L (3.5-5.1) L 09/30/20 09:08 Chloride 100 mmol/L (98-107) 09/30/20 09:08 Carbon Dioxide 35 mmol/L (23-31) H 09/30/20 09:08 BUN 17 mg/dL (8.4-25.7) 09/30/20 09:08 Creatinine 0.66 mg/dL (0.7-1.3) L 09/30/20 09:08 Glucose 203 mg/dL (83-110) H 09/30/20 09:08 Lactic Acid 1.8 mmol/L (0.5-2.2) 09/21/20 04:30 Calcium 8.2 mg/dL (7.8-10.44) 09/30/20 09:08 Total Bilirubin Less than 0.2 mg/dL (0.2-1.2) L 09/24/20 03:45 AST 14 U/L (5-34) 09/24/20 03:45 ALT Less than 7 U/L (8-55) L 09/24/20 03:45 Alkaline Phosphatase 126 U/L (40-110) H 09/24/20 03:45 CK-MB (CK-2) 0.7 ng/mL (0-6.6) 09/20/20 06:54 Troponin I 0.068 ng/mL (< 0.028) H 09/20/20 13:16 C-Reactive Protein 11.97 mg/dL (= or < 0.5) H 09/21/20 17:21 B-Natriuretic Peptide 433.6 pg/mL (0-100) H 09/21/20 09:48 Serum Total Protein 3.9 g/dL (5.8-8.1) L 09/24/20 03:45 Albumin 1.5 g/dL (3.4-4.8) L 09/29/20 16:11 Urine Ketones 10 mg/dL (Negative) A 09/21/20 01:00 Urine Blood 3+ (Negative) A 09/21/20 01:00 Urine Nitrite Negative (Negative) 09/21/20 01:00 Ur Leukocyte Esterase 250 Radha/uL (Negative) A 09/21/20 01:00 Urine RBC Greater than 50 HPF (0-3) A 09/21/20 01:00 Urine WBC 11-20 HPF (0-3) A 09/21/20 01:00 Ur Squamous Epith Cells None Seen HPF (0-3) 09/21/20 01:00 Urine Bacteria None Seen HPF (None Seen) 09/21/20 01:00 Sodium 146 mmol/L (136-145) H 09/30/20 09:08 Potassium 3.1 mmol/L (3.5-5.1) L 09/30/20 09:08 Chloride 100 mmol/L (98-107) 09/30/20 09:08 Carbon Dioxide 35 mmol/L (23-31) H 09/30/20 09:08 Anion Gap 14 mmol/L (10-20) 09/30/20 09:08 BUN 17 mg/dL (8.4-25.7) 09/30/20 09:08 Creatinine 0.66 mg/dL (0.7-1.3) L 09/30/20 09:08 Glucose 203 mg/dL (83-110) H 09/30/20 09:08 Calcium 8.2 mg/dL (7.8-10.44) 09/30/20 09:08 Phosphorus 2.8 mg/dL (2.3-4.7) 09/29/20 16:11 Magnesium 2.2 mg/dL (1.6-2.6) 09/29/20 04:40 Albumin 1.5 g/dL (3.4-4.8) L 09/29/20 16:11 Nephrology AP PN - Plan Hyperkalemia: due to excessive supplementation. Resolved with diuretic. Now hypokalemic Hypernatremia: Due to water deficit. KAYLENE: Due to hemodynamic factors related to volume depletion from acute hemorrhage with superimposed cardiorenal due to acute CHF fluid resuscitation and atrial fibrillation. Resolved. Creat back to baseline CKD stage 3 Metabolic alkalosis: Due to intravascular contraction. Resolved Hypokalemia. Hypoalbuminemia: Generalized edema Acute blood loss anemia iron deficiency anemia Cardiorenal syndrome. 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 Plan/Recommendation Continue albumin to complete ordered dose Agree with stopping of diuretic Replete serum potassium. Continue free water flushes Follow electrolytes.
--- NOTE | 2020-09-30 16:36 | PDOC.HOSPP ---
- Subjective Encounter Date: 09/30/20 Encounter Time: 16:34 Subjective: Mr. Villalba remains hospitalized. His appetite seems to be improving. Speech therapy continues to work with him. - Objective Vital Signs & Weight: Vital Signs (12 hours) Temp Pulse Resp BP Pulse Ox 09/30/20 15:29 98.4 F 72 14 170/62 H 97 09/30/20 12:05 98.3 F 62 18 153/71 H 100 09/30/20 08:40 80 09/30/20 08:14 98.1 F 80 16 166/64 H 96 09/30/20 06:38 69 18 100 Weight Admit Weight 157 lb 3.2 oz Weight 121 lb 6.4 oz Most Recent Monitor Data Heart Rate from ECG 95 NIBP 137/71 NIBP BP-Mean 93 Respiration from ECG 20 SpO2 100 I&O: 09/29/20 09/30/20 10/01/20 06:59 06:59 06:59 Intake Total 6784 4910 Output Total 2650 2025 Balance 4134 2885 Result Diagrams: 09/30/20 15:05 09/30/20 09:08 Radiology Reviewed by me: Yes EKG Reviewed by me: Yes Hospitalist ROS - Review of Systems Constitutional: reports: weakness, malaise Gastrointestinal: reports: nausea Neurological: reports: weakness - Medication Medications: Active Medications Generic Name Dose Route Start Last Admin Trade Name Freq PRN Reason Stop Dose Admin Acetaminophen 650 mg 09/25/20 20:00 09/30/20 15:38 Acetaminophen 650 Mg/20.3 Ml Udcup PO 650 mg 0200,0800,1400,2000 SIMA Administration Acetaminophen/Codeine Phosphate 10 ml 09/23/20 15:57 09/24/20 22:38 Acetaminophen W/ Codeine 5 Ml Udcup PO 10 ml Q4H PRN Administration Severe Pain (7-10) Albumin Human 25 gm 09/30/20 15:30 09/30/20 15:40 Albumin 25% 25 Gm/100 Ml Bot IVPB 09/30/20 18:00 Not Given NOW SIMA Albuterol/Ipratropium 3 ml 09/23/20 19:00 09/30/20 13:17 Ipratropium/Albuterol Sulfate 3 Ml Neb NEB 3 ml [id number] SIMA Administration Ascorbic Acid 500 mg 09/27/20 09:00 09/30/20 08:40 Ascorbic Acid 500 Mg Chewable Tablet PO 500 mg DAILY SIMA Administration Digoxin 0.125 mg 09/22/20 09:00 09/30/20 08:40 Digoxin 0.125 Mg Tab PER TUBE 0.125 mg DAILY SIMA Administration Dronedarone 400 mg 09/21/20 17:00 09/30/20 08:40 Dronedarone Hcl 400 Mg Tab PO 400 mg BID-WM SIMA Administration Enoxaparin Sodium 30 mg 09/25/20 09:00 09/30/20 08:39 Enoxaparin Sodium 30 Mg/0.3 Ml Syringe SC 30 mg 00 SIMA Administration Fentanyl 25 mcg 09/23/20 23:43 09/24/20 21:45 Fentanyl 100 Mcg/2 Ml Vial SLOW IVP 25 mcg Q2H PRN Administration Moderate to Severe Pain (6-10) Ferrous Sulfate 300 mg 09/27/20 09:00 09/30/20 08:39 Ferrous Sulfate 300 Mg/5 Ml Udcup PO 300 mg DAILY SIMA Administration Dextrose/Water 1,000 mls @ 50 mls/hr 09/26/20 12:30 09/29/20 21:22 D5w IV Not Given .Q20H SIMA Levothyroxine Sodium 50 mcg 09/22/20 06:00 09/30/20 06:19 Levothyroxine Sodium 50 Mcg Tab PO 50 mcg 0600 SIMA Administration Saccharomyces Boulardii 250 mg 09/25/20 09:00 09/30/20 08:40 Saccharomyces Boulardii 250 Mg Cap PO 250 mg BID SIMA Administration Sodium Chloride 10 ml 09/21/20 09:00 09/30/20 08:40 Flush - Normal Saline 10 Ml Syringe IVF 10 ml Q12HR SIMA Administration - Exam General Appearance: awake alert, ill appearing Eye: PERRL, anicteric sclera ENT: normocephalic atraumatic, no oropharyngeal lesions Neck: supple, symmetric, no JVD, no thyromegaly Heart: RRR, no murmur, no gallops, no rubs, normal peripheral pulses Respiratory: CTAB, no wheezes, no rales, no ronchi Gastrointestinal: soft, non-tender, non-distended, normal bowel sounds, no palpable masses Neurological: cranial nerve grossly intact Psychiatric: normal affect, flat affect Hosp A/P (1) Splenic rupture Code(s): S36.09XA - OTHER INJURY OF SPLEEN, INITIAL ENCOUNTER Status: Suspected (2) Acute respiratory failure with hypoxia Code(s): J96.01 - ACUTE RESPIRATORY FAILURE WITH HYPOXIA Status: Acute (3) Acute worsening of stage 3 chronic kidney disease Code(s): N18.30 - CHRONIC KIDNEY DISEASE, STAGE 3 UNSPECIFIED Status: Acute (4) Fever Code(s): R50.9 - FEVER, UNSPECIFIED Status: Acute (5) CLL (chronic lymphocytic leukemia) Code(s): C91.10 - CHRONIC LYMPHOCYTIC LEUK OF B-CELL TYPE NOT ACHIEVE REMIS Status: Acute (6) Hypokalemia Code(s): E87.6 - HYPOKALEMIA Status: Acute - Plan #1. Acute respiratory failure with hypoxia. He remains intubated and mechanically ventilated. We appreciate pulmonary services. I will defer to them about weaning. 09/23/2020. He was just extubated earlier this morning and he seems to be doing well. Continue routine care. 09/24/20 He is now on room air. 2. Suspected traumatic splenic rupture. He is status post splenectomy. 09/23/2020. Continue routine postop care. 3. Shock; suspected sepsis versus hypovolemic. He is now on vasopressors. Cultures are collected and are still cooking. He is empirically on IV Zosyn. We will follow up on all the active cultures. His urine analysis was abnormal with positive leukocyte esterases but no nitrite. The urine culture however has remained negative to date. Blood cultures are also negative. 09/23/2020. Still no growth from any of his cultures. I will continue empiric antibiotics for now. 09/24/20 Still requiring vasopressors. 09/26/2020. Sepsis has resolved. His cultures remains without any growth. 4. Acute kidney injury. This seems to have worsened some. We appreciate nephrology for the ongoing evaluations. 09/25/2020. Renal function appears to be back to normal. #5. History of CLL. 6. Debility. Aggressive PT 7. Hypernatremia. His serum sodium has increased to 152. He might be a little bit dehydrated. I am going to try him on free water. 8. Hypokalemia. This will be replaced.
--- NOTE | 2020-09-30 17:23 | PDOC.FMACP ---
Advance Care Planning - Problem (1) Palliative care encounter Status: Acute Code(s): Z51.5 - ENCOUNTER FOR PALLIATIVE CARE (2) Acute worsening of stage 3 chronic kidney disease Status: Acute Code(s): N18.30 - CHRONIC KIDNEY DISEASE, STAGE 3 UNSPECIFIED (3) CLL (chronic lymphocytic leukemia) Status: Acute Code(s): C91.10 - CHRONIC LYMPHOCYTIC LEUK OF B-CELL TYPE NOT ACHIEVE REMIS (4) Splenic rupture Status: Suspected Code(s): S36.09XA - OTHER INJURY OF SPLEEN, INITIAL EN COUNTER (5) Acute on chronic systolic heart failure Status: Acute Code(s): I50.23 - ACUTE ON CHRONIC SYSTOLIC (CONGESTIVE) HEART FAILURE - Note Participants: patient, surrogate decision-maker, palliative care Summary: Palliative care revisited Advanced Care Planning. The diagnosis, prognosis and goals of care were discussed. Appropriate forms and documentation to accomplish the goals of care were discussed. All questions were answered. Mrs Villalba was able to bring the Directive to Physician that patient had completed. Copied and placed in chart. Mr Villalba is considering completing an OOHDNAR prior to discharge, continues to desire a DNAR status at this time. Awaiting transition to swing bed in [place]. Time Spent (mins): 15
[2020-09-30] MEDS: Dextrose 5% in Water 1,000 ML IV SCH (18:46)
[2020-10-01 01:35] LABS: ALT (SGPT) Less than 7 U/L (8-55); AST (SGOT) 14 U/L (5-34); Albumin 3.2 g/dL (3.4-4.8); Alkaline Phosphatase 144 U/L (40-110); BUN (Urea Nitrogen) 18 mg/dL (8.4-25.7); Bilirubin, Total 0.4 mg/dL (0.2-1.2); Calc. Creatinine Clearance 69 mL/min (70-130); Calcium 8.3 mg/dL (7.8-10.44); Globulin 1.4 g/dL (2.4-3.5); Glucose 175 mg/dL (83-110); Protein, Total 4.6 g/dL (5.8-8.1)
[2020-10-01 01:44] LABS: Anion Gap 16 mmol/L (10-20); Carbon Dioxide 35 mmol/L (23-31); Chloride 97 mmol/L (98-107); Potassium 3.2 mmol/L (3.5-5.1); Sodium 145 mmol/L (136-145)
[2020-10-01] MEDS: Acetaminophen 650 MG/20.3 ML UDCUP PO SCH ×4 (02:24→20:10)
[2020-10-01 04:59] LABS: #Eosinphils 0.5 thou/uL (0.0-0.7); #Lymphocytes 1.8 thou/uL (1.20-3.40); #Monocytes 0.7 thou/uL (0.11-0.59); #Neutrophils 10.1 thou/uL (1.40-6.50); %Basophils 0.1 % (0.0-1.0); %Eosinophils 3.6 % (0.0-10.0); %Lymphocytes 13.6 % (21.0-51.0); %Monocytes 5.7 % (0.0-10.0); Hemoglobin 8.2 g/dL (14.0-18.0); Mean Corpuscular HGB CONC 30.7 g/dL (32.0-36.0); Mean Corpuscular Hemoglobin 25.5 pg (27.0-31.0); Mean Corpuscular Volume 83.1 fL (78.0-98.0); Mean Platelet Volume 11.6 fL (7.4-10.4); Platelet Count 358 thou/uL (130-400); RBC Distribution Width 19.8 % (11.5-14.5); Red Blood Cell (RBC) Count 3.21 mill/uL (4.70-6.10); White Blood Cell (WBC) Count 13.1 thou/uL (4.8-10.8)
[2020-10-01] MEDS ORDERED: Metolazone 5 MG TAB PER TUBE SCH (05:30)
[2020-10-01] MEDS: Levothyroxine Sodium 50 MCG TAB PO SCH (06:16)
[2020-10-01] MEDS: Saccharomyces boulardii 250 MG CAP PO SCH ×2 (08:58→20:10)
[2020-10-01] MEDS: Enoxaparin Sodium 30 MG/0.3 ML SYRINGE SC SCH (08:58)
[2020-10-01] MEDS: Dronedarone HCl 400 MG TAB PO SCH ×2 (08:58→17:30)
[2020-10-01] MEDS: Ascorbic Acid 500 mg Chewable Tablet PO SCH (08:58)
[2020-10-01] MEDS ORDERED: Lisinopril 5 MG TAB PO SCH (09:00)
[2020-10-01] MEDS: Digoxin 0.125 MG TAB PER TUBE SCH (09:00)
--- NOTE | 2020-10-01 09:42 | PDOC.NEPPN ---
- Subjective Encounter Date: 10/01/20 Subjective: Sleeping deeply this morning. Reportedly didnt sleep well last night. - Objective Vital Signs & Weight: Vital Signs (12 hours) Temp Pulse Pulse Resp BP BP Pulse Ox 10/01/20 09:00 60 10/01/20 08:45 52 L 16 100 10/01/20 07:03 98.2 F 74 20 145/62 H 98 10/01/20 03:53 97.6 F 61 16 174/70 H 98 09/30/20 23:49 97.4 F L 65 17 162/58 H Weight Admit Weight 157 lb 3.2 oz Weight 121 lb 6.4 oz Most Recent Monitor Data Heart Rate from ECG 95 NIBP 137/71 NIBP BP-Mean 93 Respiration from ECG 20 SpO2 100 I&O: 09/30/20 10/01/20 10/02/20 06:59 06:59 06:59 Intake Total 4910 2190 Output Total 2024 2500 Balance 2885 -310 Result Diagrams: 10/01/20 04:40 10/01/20 00:48 Nephrology ROS - Medication Medications: Active Medications Generic Name Dose Route Start Last Admin Trade Name Freq PRN Reason Stop Dose Admin Acetaminophen 650 mg 09/25/20 20:00 10/01/20 08:59 Acetaminophen 650 Mg/20.3 Ml Udcup PO 650 mg 0200,0800,1400,2000 SIMA Administration Acetaminophen/Codeine Phosphate 10 ml 09/23/20 15:57 09/24/20 22:38 Acetaminophen W/ Codeine 5 Ml Udcup PO 10 ml Q4H PRN Administration Severe Pain (7-10) Albuterol/Ipratropium 3 ml 09/23/20 19:00 10/01/20 08:45 Ipratropium/Albuterol Sulfate 3 Ml Neb NEB 3 ml [id number] SIMA Administration Ascorbic Acid 500 mg 09/27/20 09:00 10/01/20 08:58 Ascorbic Acid 500 Mg Chewable Tablet PO 500 mg DAILY SIMA Administration Digoxin 0.125 mg 09/22/20 09:00 10/01/20 09:00 Digoxin 0.125 Mg Tab PER TUBE 0.125 mg DAILY SIMA Administration Dronedarone 400 mg 09/21/20 17:00 10/01/20 08:58 Dronedarone Hcl 400 Mg Tab PO 400 mg BID-WM SIMA Administration Enoxaparin Sodium 30 mg 09/25/20 09:00 10/01/20 08:58 Enoxaparin Sodium 30 Mg/0.3 Ml Syringe SC 30 mg 0900 SIMA Administration Fentanyl 25 mcg 09/23/20 23:43 09/24/20 21:45 Fentanyl 100 Mcg/2 Ml Vial SLOW IVP 25 mcg Q2H PRN Administration Moderate to Severe Pain (6-10) Ferrous Sulfate 300 mg 09/27/20 09:00 10/01/20 08:58 Ferrous Sulfate 300 Mg/5 Ml Udcup PO 300 mg DAILY SIMA Administration Levothyroxine Sodium 50 mcg 09/22/20 06:00 10/01/20 06:16 Levothyroxine Sodium 50 Mcg Tab PO 50 mcg 0600 SIMA Administration Lisinopril 5 mg 10/01/20 09:00 10/01/20 08:58 Lisinopril 5 Mg Tab PO 5 mg DAILY SIMA Administration Potassium Chloride 40 meq 10/01/20 05:30 10/01/20 06:16 Potassium Chloride 20 Meq Packet PO 10/01/20 11:31 40 meq Q6H SIMA Administration Saccharomyces Boulardii 250 mg 09/25/20 09:00 10/01/20 08:58 Saccharomyces Boulardii 250 Mg Cap PO 250 mg BID SIMA Administration Sodium Chloride 10 ml 09/21/20 09:00 10/01/20 09:00 Flush - Normal Saline 10 Ml Syringe IVF 10 ml Q12HR SIMA Administration - Exam General - other findings: sleeping ENT: normocephalic atraumatic, dry oral mucosa Respiratory - other findings: fair air entry bilaterally with no obvious crackles Cardiovascular: irregular Gastrointestinal: soft, non-distended, normal bowel sounds Gastrointestinal - other findings: surgical wound noted Extremities - other findings: edema of the extremities especially upper limbs noted Neurological - other findings: slepping deeply Nephrology Results - Labs Result Diagrams: 10/01/20 04:40 10/01/20 00:48 Lab results: WBC 13.1 thou/uL (4.8-10.8) H 10/01/20 04:40 Hgb 8.2 g/dL (14.0-18.0) L 10/01/20 04:40 Hct 26.7 % (42.0-52.0) L 10/01/20 04:40 MCV 83.1 fL (78.0-98.0) 10/01/20 04:40 Plt Count 358 thou/uL (130-400) 10/01/20 04:40 Neutrophils % 77.0 % (42.0-75.0) H 10/01/20 04:40 Band Neuts % (Manual) 4 % (5-11) L 09/30/20 09:08 ABG pH 7.51 (7.35-7.45) H 09/23/20 07:20 ABG pCO2 28.8 mmHg (35.0-45.0) L 09/23/20 07:20 ABG pO2 145.9 mmHg (> 60.0) H 09/23/20 07:20 Sodium 145 mmol/L (136-145) 10/01/20 00:48 Potassium 3.2 mmol/L (3.5-5.1) L 10/01/20 00:48 Chloride 97 mmol/L (98-107) L 10/01/20 00:48 Carbon Dioxide 35 mmol/L (23-31) H 10/01/20 00:48 BUN 18 mg/dL (8.4-25.7) 10/01/20 00:48 Creatinine 0.64 mg/dL (0.7-1.3) L 10/01/20 00:48 Glucose 175 mg/dL (83-110) H 10/01/20 00:48 Lactic Acid 1.8 mmol/L (0.5-2.2) 09/21/20 04:30 Calcium 8.3 mg/dL (7.8-10.44) 10/01/20 00:48 Total Bilirubin 0.4 mg/dL (0.2-1.2) 10/01/20 00:48 AST 14 U/L (5-34) 10/01/20 00:48 ALT Less than 7 U/L (8-55) L 10/01/20 00:48 Alkaline Phosphatase 144 U/L (40-110) H 10/01/20 00:48 CK-MB (CK-2) 0.7 ng/mL (0-6.6) 09/20/20 06:54 Troponin I 0.068 ng/mL (< 0.028) H 09/20/20 13:16 C-Reactive Protein 11.97 mg/dL (= or < 0.5) H 09/21/20 17:21 B-Natriuretic Peptide 433.6 pg/mL (0-100) H 09/21/20 09:48 Serum Total Protein 4.6 g/dL (5.8-8.1) L 10/01/20 00:48 Albumin 3.2 g/dL (3.4-4.8) L 10/01/20 00:48 Urine Ketones 10 mg/dL (Negative) A 09/21/20 01:00 Urine Blood 3+ (Negative) A 09/21/20 01:00 Urine Nitrite Negative (Negative) 09/21/20 01:00 Ur Leukocyte Esterase 250 Radha/uL (Negative) A 09/21/20 01:00 Urine RBC Greater than 50 HPF (0-3) A 09/21/20 01:00 Urine WBC 11-20 HPF (0-3) A 09/21/20 01:00 Ur Squamous Epith Cells None Seen HPF (0-3) 09/21/20 01:00 Urine Bacteria None Seen HPF (None Seen) 09/21/20 01:00 Sodium 145 mmol/L (136-145) 10/01/20 00:48 Potassium 3.2 mmol/L (3.5-5.1) L 10/01/20 00:48 Chloride 97 mmol/L (98-107) L 10/01/20 00:48 Carbon Dioxide 35 mmol/L (23-31) H 10/01/20 00:48 Anion Gap 16 mmol/L (10-20) 10/01/20 00:48 BUN 18 mg/dL (8.4-25.7) 10/01/20 00:48 Creatinine 0.64 mg/dL (0.7-1.3) L 10/01/20 00:48 Glucose 175 mg/dL (83-110) H 10/01/20 00:48 Calcium 8.3 mg/dL (7.8-10.44) 10/01/20 00:48 Phosphorus 2.8 mg/dL (2.3-4.7) 09/29/20 16:11 Magnesium 1.9 mg/dL (1.6-2.6) 10/01/20 04:40 Albumin 3.2 g/dL (3.4-4.8) L 10/01/20 00:48 Nephrology AP PN - Plan Hyperkalemia: due to excessive supplementation. Resolved with diuretic. Now hypokalemic Hypernatremia: Due to water deficit. KAYLENE: Due to hemodynamic factors related to volume depletion from acute hemorrhage with superimposed cardiorenal due to acute CHF fluid resuscitation and atrial fibrillation. Resolved. Creat back to baseline CKD stage 3 Metabolic alkalosis: Due to intravascular contraction. Resolved Hypokalemia. Hypoalbuminemia: Generalized edema Acute blood loss anemia iron deficiency anemia Cardiorenal syndrome. 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 HTN Plan Restart lisinopril DC d5w. Continue free water flushes. Replete serum potassium Give a dose of metolazone. Follow electrolytes.
--- NOTE | 2020-10-01 13:22 | PDOC.HOSPP ---
- Subjective Encounter Date: 10/01/20 Encounter Time: 13:18 Subjective: Mr. Villalba remains ill. He is attempting to increase his oral intake. He is awfully debilitated as well. Ongoing plan for SNF placement once he is medically stable. At this point in time we will continue tube feedings and advance as tolerated. His electrolyte appears to be better. - Objective Vital Signs & Weight: Vital Signs (12 hours) Temp Pulse Resp BP Pulse Ox 10/01/20 09:00 60 10/01/20 08:45 52 L 16 100 10/01/20 07:03 98.2 F 74 20 145/62 H 98 10/01/20 03:53 97.6 F 61 16 174/70 H 98 Weight Admit Weight 157 lb 3.2 oz Weight 121 lb 6.4 oz Most Recent Monitor Data Heart Rate from ECG 95 NIBP 137/71 NIBP BP-Mean 93 Respiration from ECG 20 SpO2 100 I&O: 09/30/20 10/01/20 10/02/20 06:59 06:59 06:59 Intake Total 4910 2190 Output Total 2024 2500 Balance 2885 -310 Result Diagrams: 10/01/20 04:40 10/01/20 00:48 Radiology Reviewed by me: Yes EKG Reviewed by me: Yes Hospitalist ROS - Review of Systems ROS unobtainable: due to mental status Constitutional: reports: weakness, malaise Respiratory: reports: shortness of breath, SOB with excertion Gastrointestinal: reports: nausea, vomiting - Medication Medications: Active Medications Generic Name Dose Route Start Last Admin Trade Name Freq PRN Reason Stop Dose Admin Acetaminophen 650 mg 09/25/20 20:00 10/01/20 08:59 Acetaminophen 650 Mg/20.3 Ml Udcup PO 650 mg 0200,0800,1400,2000 SIMA Administration Acetaminophen/Codeine Phosphate 10 ml 09/23/20 15:57 09/24/20 22:38 Acetaminophen W/ Codeine 5 Ml Udcup PO 10 ml Q4H PRN Administration Severe Pain (7-10) Albuterol/Ipratropium 3 ml 09/23/20 19:00 10/01/20 08:45 Ipratropium/Albuterol Sulfate 3 Ml Neb NEB 3 ml [id number] SIMA Administration Ascorbic Acid 500 mg 09/27/20 09:00 10/01/20 08:58 Ascorbic Acid 500 Mg Chewable Tablet PO 500 mg DAILY SIMA Administration Digoxin 0.125 mg 09/22/20 09:00 10/01/20 09:00 Digoxin 0.125 Mg Tab PER TUBE 0.125 mg DAILY SIMA Administration Dronedarone 400 mg 09/21/20 17:00 10/01/20 08:58 Dronedarone Hcl 400 Mg Tab PO 400 mg BID-WM SIMA Administration Enoxaparin Sodium 30 mg 09/25/20 09:00 10/01/20 08:58 Enoxaparin Sodium 30 Mg/0.3 Ml Syringe SC 30 mg 899 SIMA Administration Fentanyl 25 mcg 09/23/20 23:43 09/24/20 21:45 Fentanyl 100 Mcg/2 Ml Vial SLOW IVP 25 mcg Q2H PRN Administration Moderate to Severe Pain (6-10) Ferrous Sulfate 300 mg 09/27/20 09:00 10/01/20 08:58 Ferrous Sulfate 300 Mg/5 Ml Udcup PO 300 mg DAILY SIMA Administration Levothyroxine Sodium 50 mcg 09/22/20 06:00 10/01/20 06:16 Levothyroxine Sodium 50 Mcg Tab PO 50 mcg 0600 SIMA Administration Lisinopril 5 mg 10/01/20 09:00 10/01/20 08:58 Lisinopril 5 Mg Tab PO 5 mg DAILY SIMA Administration Saccharomyces Boulardii 250 mg 09/25/20 09:00 10/01/20 08:58 Saccharomyces Boulardii 250 Mg Cap PO 250 mg BID SIMA Administration Sodium Chloride 10 ml 09/21/20 09:00 10/01/20 09:00 Flush - Normal Saline 10 Ml Syringe IVF 10 ml Q12HR SIMA Administration - Exam General Appearance: NAD Eye: PERRL, anicteric sclera ENT: normocephalic atraumatic, no oropharyngeal lesions Neck: supple, symmetric, no JVD Heart: RRR, no murmur, no gallops, no rubs, normal peripheral pulses Respiratory: CTAB, no wheezes, no rales, no ronchi, normal chest expansion Gastrointestinal: soft, non-tender, non-distended Neurological: cranial nerve grossly intact, normal sensation to touch Psychiatric: flat affect, somnolent, lethargic Hosp A/P (1) Splenic rupture Code(s): S36.09XA - OTHER INJURY OF SPLEEN, INITIAL ENCOUNTER Status: Suspected (2) Acute respiratory failure with hypoxia Code(s): J96.01 - ACUTE RESPIRATORY FAILURE WITH HYPOXIA Status: Acute (3) Acute worsening of stage 3 chronic kidney disease Code(s): N18.30 - CHRONIC KIDNEY DISEASE, STAGE 3 UNSPECIFIED Status: Acute (4) Fever Code(s): R50.9 - FEVER, UNSPECIFIED Status: Acute (5) CLL (chronic lymphocytic leukemia) Code(s): C91.10 - CHRONIC LYMPHOCYTIC LEUK OF B-CELL TYPE NOT ACHIEVE REMIS Status: Acute (6) Hypokalemia Code(s): E87.6 - HYPOKALEMIA Status: Acute - Plan continue antibiotics, PT/OT #1. Acute respiratory failure with hypoxia. He remains intubated and mechanically ventilated. We appreciate pulmonary services. I will defer to them about weaning. 09/23/2020. He was just extubated earlier this morning and he seems to be doing well. Continue routine care. 09/24/20 He is now on room air. 2. Suspected traumatic splenic rupture. He is status post splenectomy. 09/23/2020. Continue routine postop care. 3. Shock; suspected sepsis versus hypovolemic. He is now on vasopressors. Cultures are collected and are still cooking. He is empirically on IV Zosyn. We will follow up on all the active cultures. His urine analysis was abnormal with positive leukocyte esterases but no nitrite. The urine culture however has remained negative to date. Blood cultures are also negative. 09/23/2020. Still no growth from any of his cultures. I will continue empiric antibiotics for now. 09/24/20 Still requiring vasopressors. 09/26/2020. Sepsis has resolved. His cultures remains without any growth. 4. Acute kidney injury. This seems to have worsened some. We appreciate nephrology for the ongoing evaluations. 09/25/2020. Renal function appears to be back to normal. #5. History of CLL. 6. Debility. Aggressive PT 7. Hypernatremia. His serum sodium has increased to 152. He might be a little bit dehydrated. I am going to try him on free water. 8. Hypokalemia. This will be replaced.
[2020-10-01] MEDS: Acetaminophen W/ Codeine 5 ML UDCUP PO PRN (13:24)
--- NOTE | 2020-10-01 19:40 | EKG ---
Test Reason : STAT Blood Pressure : / mmHG Vent. Rate : 060 BPM Atrial Rate : 250 BPM P-R Int : 000 ms QRS Dur : 094 ms QT Int : 364 ms P-R-T Axes : 000 033 097 degrees QTc Int : 364 ms Atrial fibrillation Low voltage QRS T wave abnormality, consider anterior ischemia Abnormal ECG When compared with ECG of 20-SEP-2020 06:49, Atrial fibrillation has replaced Wide QRS rhythm Vent. rate has decreased BY 31 BPM Confirmed by LELO TURNER (2) on 10/01/2020 7:40:25 PM Referred By: PRAKASH Confirmed By:LELO TURNER
[2020-10-02] MEDS: Acetaminophen 650 MG/20.3 ML UDCUP PO SCH ×4 (01:07→20:20)
[2020-10-02] MEDS: Acetaminophen W/ Codeine 5 ML UDCUP PO PRN ×2 (05:42→20:21)
[2020-10-02] MEDS: Levothyroxine Sodium 50 MCG TAB PO SCH (05:43)
[2020-10-02 06:23] LABS: Anion Gap 14 mmol/L (10-20); BUN (Urea Nitrogen) 16 mg/dL (8.4-25.7); BUN/Creatinine Ratio 27.12; Calc. Creatinine Clearance 75 mL/min (70-130); Calcium 8.4 mg/dL (7.8-10.44); Carbon Dioxide 31 mmol/L (23-31); Chloride 98 mmol/L (98-107); Glucose 148 mg/dL (83-110); Phosphorus 2.7 mg/dL (2.3-4.7); Potassium 4.4 mmol/L (3.5-5.1); Sodium 139 mmol/L (136-145)
[2020-10-02 06:50] LABS: %Neutrophils 83.4 % (42.0-75.0); Hemoglobin 8.8 g/dL (14.0-18.0); Mean Corpuscular HGB CONC 30.2 g/dL (32.0-36.0); Mean Corpuscular Hemoglobin 25.4 pg (27.0-31.0); Mean Platelet Volume 11.7 fL (7.4-10.4); Platelet Count 382 thou/uL (130-400); RBC Distribution Width 19.9 % (11.5-14.5); Red Blood Cell (RBC) Count 3.48 mill/uL (4.70-6.10); White Blood Cell (WBC) Count 12.5 thou/uL (4.8-10.8)
[2020-10-02 08:03] LABS: #Eosinphils 0.4 thou/uL (0.0-0.7); #Monocytes 0.7 thou/uL (0.11-0.59); #Neutrophils 10.4 thou/uL (1.40-6.50); %Basophils 0.1 % (0.0-1.0); %Eosinophils 3.2 % (0.0-10.0); %Lymphocytes 7.8 % (21.0-51.0); %Monocytes 5.5 % (0.0-10.0); Band 7 % (5-11); Elliptocytes SLIGHT = 2-5 cells (100X) (0-1/hpf); Eosinophils 3 % (0-10); Hypochromia SLIGHT = 6-15 cells (100X) (0-5/hpf); Lymphocytes 6 % (21-51); MDiff Complete? YES; Neutrophil 83 % (42-75); Nucleated RBC 1 % (0); Ovalocytes SLIGHT = 2-5 cells (100X) (0-1/hpf); Platelet Morphology Comment Appears Adequate; Polychromasia SLIGHT = 2-3 cells (100X) (0-2/hpf)
[2020-10-02] MEDS: Ascorbic Acid 500 mg Chewable Tablet PO SCH (08:33)
[2020-10-02] MEDS: Dronedarone HCl 400 MG TAB PO SCH ×2 (08:33→16:41)
[2020-10-02] MEDS: Saccharomyces boulardii 250 MG CAP PO SCH ×2 (08:34→20:21)
[2020-10-02] MEDS: Lisinopril 10 MG TAB PO SCH ×2 (08:34→20:21)
[2020-10-02] MEDS: Digoxin 0.125 MG TAB PER TUBE SCH (08:35)
[2020-10-02] MEDS: Enoxaparin Sodium 30 MG/0.3 ML SYRINGE SC SCH (08:36)
[2020-10-02] MEDS ORDERED: Pancrelipase DR 12,000 1 CAP FS PRN (11:45)
[2020-10-02] MEDS ORDERED: Sodium Bicarbonate Tab 325 MG TAB PER TUBE PRN (11:45)
--- NOTE | 2020-10-02 15:10 | PDOC.HOSPP ---
- Subjective Encounter Date: 10/02/20 Encounter Time: 15:07 Subjective: Mr. Villalba was seen and evaluated. Nursing staff reported that his Dobbhoff tube feeding has malfunctioned. We will go ahead and remove this tube feeding. I have encouraged family to watch him closer whenever he is eating anything by mouth. We will give this a trial and if this does not work we can insert another Dobbhoff tube feeding. Tentatively we will plan for [facility] facility placement by Wednesday. He seems to be a lot more awake and alert today. His was at the bedside when I visited. - Objective Vital Signs & Weight: Vital Signs (12 hours) Temp Pulse Resp BP Pulse Ox 10/02/20 13:57 87 16 98 10/02/20 11:16 97.7 F 63 18 166/77 H 98 10/02/20 08:35 78 10/02/20 07:23 78 18 98 10/02/20 07:13 98.4 F 75 18 178/79 H 98 10/02/20 03:55 97.6 F 80 16 178/74 H 98 Weight Admit Weight 157 lb 3.2 oz Weight 121 lb 6.4 oz Most Recent Monitor Data Heart Rate from ECG 95 NIBP 137/71 NIBP BP-Mean 93 Respiration from ECG 20 SpO2 100 I&O: 10/01/20 10/02/20 10/03/20 06:59 06:59 06:59 Intake Total 2190 190 30 Output Total 2500 3050 Balance -310 -2860 30 Result Diagrams: 10/02/20 06:17 10/02/20 05:54 Radiology Reviewed by me: Yes EKG Reviewed by me: Yes Hospitalist ROS - Review of Systems Constitutional: reports: weakness, malaise Gastrointestinal: reports: nausea Neurological: reports: weakness - Medication Medications: Active Medications Generic Name Dose Route Start Last Admin Trade Name Freq PRN Reason Stop Dose Admin Acetaminophen 650 mg 09/25/20 20:00 10/02/20 15:03 Acetaminophen 650 Mg/20.3 Ml Udcup PO Not Given 0200,0800,1400,2000 [facility] Acetaminophen/Codeine Phosphate 10 ml 09/23/20 15:57 10/02/20 05:42 Acetaminophen W/ Codeine 5 Ml Udcup PO 10 ml Q4H PRN Administration Severe Pain (7-10) Albuterol/Ipratropium 3 ml 11/23/20 19:00 10/02/20 13:57 Ipratropium/Albuterol Sulfate 3 Ml Neb NEB 3 ml [id number] SIMA Administration Ascorbic Acid 500 mg 09/27/20 09:00 10/02/20 08:33 Ascorbic Acid 500 Mg Chewable Tablet PO 500 mg DAILY SIMA Administration Digoxin 0.125 mg 09/22/20 09:00 10/02/20 08:35 Digoxin 0.125 Mg Tab PER TUBE 0.125 mg DAILY SIMA Administration Dronedarone 400 mg 09/21/20 17:00 10/02/20 08:33 Dronedarone Hcl 400 Mg Tab PO 400 mg BID-WM SIMA Administration Enoxaparin Sodium 30 mg 09/25/20 09:00 10/02/20 08:36 Enoxaparin Sodium 30 Mg/0.3 Ml Syringe SC 30 mg 0900 SIMA Administration Ferrous Sulfate 300 mg 09/27/20 09:00 10/02/20 08:39 Ferrous Sulfate 300 Mg/5 Ml Udcup PO 300 mg DAILY SIMA Administration Levothyroxine Sodium 50 mcg 09/22/20 06:00 10/02/20 05:43 Levothyroxine Sodium 50 Mcg Tab PO 50 mcg 0600 SIMA Administration Lisinopril 10 mg 10/02/20 09:00 10/02/20 08:34 Lisinopril 10 Mg Tab PO 10 mg BID SIMA Administration Saccharomyces Boulardii 250 mg 09/25/20 09:00 10/02/20 08:34 Saccharomyces Boulardii 250 Mg Cap PO 250 mg BID SIMA Administration Sodium Chloride 10 ml 09/21/20 09:00 10/02/20 08:37 Flush - Normal Saline 10 Ml Syringe IVF Not Given Q12HR SIMA - Exam General Appearance: NAD, awake alert, ill appearing Eye: PERRL, anicteric sclera ENT: normocephalic atraumatic, no oropharyngeal lesions Neck: supple, symmetric, no JVD Heart: RRR, no murmur, no gallops, no rubs Respiratory: CTAB Gastrointestinal: soft, non-tender, non-distended, normal bowel sounds Psychiatric: normal affect, normal behavior, A&O x 3 Hosp A/P (1) Splenic rupture Code(s): S36.09XA - OTHER INJURY OF SPLEEN, INITIAL ENCOUNTER Status: Suspected (2) Acute respiratory failure with hypoxia Code(s): J96.01 - ACUTE RESPIRATORY FAILURE WITH HYPOXIA Status: Acute (3) Acute worsening of stage 3 chronic kidney disease Code(s): N18.30 - CHRONIC KIDNEY DISEASE, STAGE 3 UNSPECIFIED Status: Acute (4) Fever Code(s): R50.9 - FEVER, UNSPECIFIED Status: Acute (5) CLL (chronic lymphocytic leukemia) Code(s): C91.10 - CHRONIC LYMPHOCYTIC LEUK OF B-CELL TYPE NOT ACHIEVE REMIS Status: Acute (6) Hypokalemia Code(s): E87.6 - HYPOKALEMIA Status: Acute - Plan PT/OT, out of bed/ambulate #1. Acute respiratory failure with hypoxia. He remains intubated and mechanically ventilated. We appreciate pulmonary services. I will defer to them about weaning. 09/23/2020. He was just extubated earlier this morning and he seems to be doing well. Continue routine care. 09/24/20 He is now on room air. 2. Suspected traumatic splenic rupture. He is status post splenectomy. 09/23/2020. Continue routine postop care. 3. Shock; suspected sepsis versus hypovolemic. He is now on vasopressors. Cultures are collected and are still cooking. He is empirically on IV Zosyn. We will follow up on all the active cultures. His urine analysis was abnormal with positive leukocyte esterases but no nitrite. The urine culture however has remained negative to date. Blood cultures are also negative. 09/23/2020. Still no growth from any of his cultures. I will continue empiric antibiotics for now. 09/24/20 Still requiring vasopressors. 09/26/2020. Sepsis has resolved. His cultures remains without any growth. 4. Acute kidney injury. This seems to have worsened some. We appreciate nephrology for the ongoing evaluations. 09/25/2020. Renal function appears to be back to normal. #5. History of CLL. 6. Debility. Aggressive PT 7. Hypernatremia. His serum sodium has increased to 152. He might be a little bit dehydrated. I am going to try him on free water. 8. Hypokalemia. This will be replaced.
[2020-10-03] MEDS: Acetaminophen 650 MG/20.3 ML UDCUP PO SCH ×3 (04:27→14:27)
[2020-10-03] MEDS: Levothyroxine Sodium 50 MCG TAB PO SCH (05:27)
[2020-10-03] MEDS: Enoxaparin Sodium 30 MG/0.3 ML SYRINGE SC SCH (09:34)
[2020-10-03] MEDS: Dronedarone HCl 400 MG TAB PO SCH ×2 (09:35→16:37)
[2020-10-03] MEDS: Digoxin 0.125 MG TAB PER TUBE SCH (09:35)
[2020-10-03] MEDS: Lisinopril 10 MG TAB PO SCH ×2 (09:35→19:55)
[2020-10-03] MEDS: Ascorbic Acid 500 mg Chewable Tablet PO SCH (09:45)
[2020-10-03] MEDS: Saccharomyces boulardii 250 MG CAP PO SCH ×2 (09:45→19:55)
[2020-10-03] MEDS: Gabapentin 100 MG CAP PO SCH ×2 (14:15→19:55)
--- NOTE | 2020-10-03 15:18 | PDOC.HOSPP ---
- Subjective Encounter Date: 10/03/20 Encounter Time: 15:17 Subjective: Mr. Villalba seems to be doing so much better today. He is awake and alert and eating lunch when I visited. He will likely transfer to senior care tomorrow. - Objective Vital Signs & Weight: Vital Signs (12 hours) Temp Pulse Resp BP BP Pulse Ox 10/03/20 11:25 99.7 F H 94 14 157/74 H 97 10/03/20 09:35 90 142/51 H 10/03/20 08:28 97.7 F 90 12 184/68 H 96 10/03/20 06:52 86 16 94 L 10/03/20 03:48 97.6 F 98 20 137/64 96 Weight Admit Weight 157 lb 3.2 oz Weight 121 lb 6.4 oz Most Recent Monitor Data Heart Rate from ECG 95 NIBP 137/71 NIBP BP-Mean 93 Respiration from ECG 20 SpO2 100 I&O: 10/02/20 10/03/20 10/04/20 06:59 06:59 06:59 Intake Total 190 590 Output Total 3050 2700 Balance -2860 -2110 Result Diagrams: 10/02/20 06:17 10/02/20 05:54 Radiology Reviewed by me: Yes EKG Reviewed by me: Yes Hospitalist ROS - Review of Systems Constitutional: reports: weakness, malaise Gastrointestinal: reports: nausea All other systems reviewed; all pertinent +/- noted in HPI/Subj - Medication Medications: Active Medications Generic Name Dose Route Start Last Admin Trade Name Freq PRN Reason Stop Dose Admin Acetaminophen 650 mg 09/25/20 20:00 10/03/20 14:27 Acetaminophen 650 Mg/20.3 Ml Udcup PO Not Given 0200,0800,1400,1999 [facility] Acetaminophen/Codeine Phosphate 10 ml 09/23/20 15:57 10/02/20 20:21 Acetaminophen W/ Codeine 5 Ml Udcup PO 10 ml Q4H PRN Administration Severe Pain (7-10) Albuterol/Ipratropium 3 ml 09/23/20 19:00 10/03/20 06:52 Ipratropium/Albuterol Sulfate 3 Ml Neb NEB 3 ml [id number] SIMA Administration Ascorbic Acid 500 mg 09/27/20 09:00 10/03/20 09:45 Ascorbic Acid 500 Mg Chewable Tablet PO Not Given DAILY SIMA Digoxin 0.125 mg 09/22/20 09:00 10/03/20 09:35 Digoxin 0.125 Mg Tab PER TUBE 0.125 mg DAILY SIMA Administration Dronedarone 400 mg 09/21/20 17:00 10/03/20 09:35 Dronedarone Hcl 400 Mg Tab PO 400 mg BID-WM SIMA Administration Enoxaparin Sodium 30 mg 09/25/20 09:00 10/03/20 09:34 Enoxaparin Sodium 30 Mg/0.3 Ml Syringe SC 30 mg 09 SIMA Administration Ferrous Sulfate 300 mg 09/27/20 09:00 10/03/20 09:45 Ferrous Sulfate 300 Mg/5 Ml Udcup PO Not Given DAILY SIMA Gabapentin 100 mg 10/03/20 15:00 10/03/20 14:15 Gabapentin 100 Mg Cap PO 100 mg TID SIMA Administration Levothyroxine Sodium 50 mcg 09/22/20 06:00 10/03/20 05:27 Levothyroxine Sodium 50 Mcg Tab PO 50 mcg 0600 SIMA Administration Lisinopril 10 mg 10/02/20 09:00 10/03/20 09:35 Lisinopril 10 Mg Tab PO 10 mg BID SIMA Administration Saccharomyces Boulardii 250 mg 09/25/20 09:00 10/03/20 09:45 Saccharomyces Boulardii 250 Mg Cap PO 250 mg BID SIMA Administration Sodium Chloride 10 ml 09/21/20 09:00 10/03/20 09:45 Flush - Normal Saline 10 Ml Syringe IVF Not Given Q12HR SIMA - Exam Eye: PERRL ENT: normocephalic atraumatic, dry oral mucosa Neck: supple, symmetric, no JVD, no thyromegaly Heart: RRR, no murmur, no gallops, no rubs, normal peripheral pulses Respiratory: CTAB, no wheezes, no rales, no ronchi, normal chest expansion Gastrointestinal: soft, non-tender, non-distended Psychiatric: normal affect, normal behavior, A&O x 3 Hosp A/P (1) Splenic rupture Code(s): S36.09XA - OTHER INJURY OF SPLEEN, INITIAL ENCOUNTER Status: Suspected (2) Acute respiratory failure with hypoxia Code(s): J96.01 - ACUTE RESPIRATORY FAILURE WITH HYPOXIA Status: Acute (3) Acute worsening of stage 3 chronic kidney disease Code(s): N18.30 - CHRONIC KIDNEY DISEASE, STAGE 3 UNSPECIFIED Status: Acute (4) Fever Code(s): R50.9 - FEVER, UNSPECIFIED Status: Acute (5) CLL (chronic lymphocytic leukemia) Code(s): C91.10 - CHRONIC LYMPHOCYTIC LEUK OF B-CELL TYPE NOT ACHIEVE REMIS Status: Acute (6) Hypokalemia Code(s): E87.6 - HYPOKALEMIA Status: Acute - Plan #1. Acute respiratory failure with hypoxia. He remains intubated and mechanically ventilated. We appreciate pulmonary services. I will defer to them about weaning. 09/23/2020. He was just extubated earlier this morning and he seems to be doing well. Continue routine care. 09/24/20 He is now on room air. 2. Suspected traumatic splenic rupture. He is status post splenectomy. 09/23/2020. Continue routine postop care. 3. Shock; suspected sepsis versus hypovolemic. He is now on vasopressors. Cultures are collected and are still cooking. He is empirically on IV Zosyn. We will follow up on all the active cultures. His urine analysis was abnormal with positive leukocyte esterases but no nitrite. The urine culture however has remained negative to date. Blood cultures are also negative. 09/23/2020. Still no growth from any of his cultures. I will continue empiric antibiotics for now. 09/24/20 Still requiring vasopressors. 09/26/2020. Sepsis has resolved. His cultures remains without any growth. 4. Acute kidney injury. This seems to have worsened some. We appreciate nephrology for the ongoing evaluations. 09/25/2020. Renal function appears to be back to normal. #5. History of CLL. 6. Debility. Aggressive PT 7. Hypernatremia. His serum sodium has increased to 152. He might be a little bit dehydrated. I am going to try him on free water. 8. Hypokalemia. This will be replaced.
[2020-10-03] MEDS: Acetaminophen 325 MG TAB PO SCH (19:55)
[2020-10-04] MEDS: Acetaminophen 325 MG TAB PO SCH ×3 (02:47→14:55)
[2020-10-04] MEDS: Levothyroxine Sodium 50 MCG TAB PO SCH (06:14)
[2020-10-04] MEDS: Dronedarone HCl 400 MG TAB PO SCH ×2 (10:10→10:19)
[2020-10-04] MEDS: Saccharomyces boulardii 250 MG CAP PO SCH (10:10)
[2020-10-04] MEDS: Digoxin 0.125 MG TAB PER TUBE SCH (10:10)
[2020-10-04] MEDS: Gabapentin 100 MG CAP PO SCH ×2 (10:10→14:55)
[2020-10-04] MEDS: Lisinopril 10 MG TAB PO SCH (10:11)
[2020-10-04] MEDS: Enoxaparin Sodium 30 MG/0.3 ML SYRINGE SC SCH (10:11)
[2020-10-04] MEDS: Ascorbic Acid 500 mg Chewable Tablet PO SCH ×2 (10:11→10:18)
--- NOTE | 2020-10-04 10:48 | PDOC.DS.DS ---
Provider - Provider Date of Admission: 09/20/20 07:21 Date of Discharge: 10/04/20 Admitting Provider: Zelda Prather MD Consultations: General Surgery, Nephrology Primary Care Physician: VICKIE HARRIS MD Course - Hospital Course Hospital Course: Mr. Villalba is an 80-year-old patient who was admitted to the hospital as a transfer from outside hospital where he was evaluated originally. This gentleman had a rather protracted hospitalization. He came to us as a transfer from [place] emergency room. Reportedly he complained about some chest discomfort but he could not really provide much history. Prior to the ER visit he had a fall a few days leading to the hospitalization. There was a CT abdomen and pelvis obtained that suggested possibly splenic and he was sent here for general surgery evaluation. His pertinent medical history includes CLL, atrial fibrillation, congestive heart failure. He arrived here and was seen by trauma service. He underwent splenectomy. He was very difficult to wean but he eventually was weaned off of ventilator. He was continued on some IV antibiotics and cultures were collected. His cultures has remained negative to date. He was seen during this visit by nephrology due to worsening renal function and they helped optimize his fluid. His renal function has improved and apparently back to baseline. The patient continues to have significant need for aggressive physical therapy in addition to occupational therapy. His appetite remains very poor but this is improving slowly. The family wanted him to go to skilled therapy so he could improve his strength prior to returning h [employer]. Today he will be discharged to skilled therapy. He is clinically stable for discharge. Resuscitation Status: 09/24/20 13:46 Resuscitation Status Routine Co-Sign Provider: Resuscitation Status: DNAR: NO Resuscitation Discussed with: Additional comments: Patient states recent completion of Directives, requested to transition to DNAR. - Labs Lab Results: 10/02/20 06:17 10/02/20 05:54 Microbiology - Entire Visit 09/21/20 17:21 Artery - Left Arm Blood Culture - Final NO GROWTH IN 5 DAYS 09/21/20 09:48 Venous blood - Left Arm Blood Culture - Final NO GROWTH IN 5 DAYS 09/23/20 00:30 Sputum - Aspirate Respiratory Culture - Final 09/21/20 01:20 Sputum - Fluid Respiratory Culture - Final 09/21/20 01:21 Urine gibson catheter Urine Culture - Final NO GROWTH AT 48 HOURS - Physical Exam Vitals: Vital Signs (12 hours) Temp Pulse Resp BP Pulse Ox 10/04/20 10:10 67 10/04/20 07:10 97.4 F L 67 18 174/67 H 95 10/04/20 06:47 86 18 96 10/03/20 23:15 98.3 F 83 17 161/61 H 96 Weight Admit Weight 157 lb 3.2 oz Weight 121 lb 6.4 oz Most Recent Monitor Data Heart Rate from ECG 95 NIBP 137/71 NIBP BP-Mean 93 Respiration from ECG 20 SpO2 100 Physical Exam: The patient was seen and examined on the day of discharge. Problem - Problem (1) Splenic rupture Code(s): S36.09XA - OTHER INJURY OF SPLEEN, INITIAL ENCOUNTER Status: Suspected (2) Acute respiratory failure with hypoxia Code(s): J96.01 - ACUTE RESPIRATORY FAILURE WITH HYPOXIA Status: Acute (3) Acute worsening of stage 3 chronic kidney disease Code(s): N18.30 - CHRONIC KIDNEY DISEASE, STAGE 3 UNSPECIFIED Status: Acute (4) Fever Code(s): R50.9 - FEVER, UNSPECIFIED Status: Acute (5) CLL (chronic lymphocytic leukemia) Code(s): C91.10 - CHRONIC LYMPHOCYTIC LEUK OF B-CELL TYPE NOT ACHIEVE REMIS Status: Acute (6) Hypokalemia Code(s): E87.6 - HYPOKALEMIA Status: Acute - Time spent with Patient (mins): 30 Plan - Discharge Medications Prescriptions: hydrALAZINE HCl [Hydralazine HCl] 25 mg PO TID #90 tablet Home Medications: Medication Instructions Recorded Confirmed Type Apixaban [Eliquis] 5 mg PO BID 07/01/20 09/21/20 History Cyanocobalamin (Vitamin B-12) 1,000 mcg PO QPM 07/01/20 10/04/20 History [B-12] Lisinopril 2.5 mg PO DAILY 07/01/20 09/21/20 History Carvedilol 6.25 mg PO BID 07/02/20 09/21/20 History Furosemide 40 mg PO DAILY 07/02/20 09/21/20 History Levothyroxine Sodium 50 mcg PO DAILY 07/02/20 09/21/20 History Vit A/Vit C/Vit E/Zinc/Copper 2 tablet PO BID 07/03/20 09/21/20 History [PreserVision AREDS] Digoxin [Lanoxin] 0.125 mg PO DAILY 30 Days #30 tab 07/09/20 09/21/20 Rx Mupirocin 2% Ointment [Bactroban 0 gm TOP TID 10 Days #1 tube 07/09/20 09/21/20 Rx 2% Ointment] Lisinopril [Zestril] 10 mg PO BID tab 10/04/20 Rx hydrALAZINE HCl [Hydralazine HCl] 25 mg PO TID #90 tablet 10/04/20 Rx Allergies: Penicillins Allergy (Verified 07/01/20 08:23) sulfamethoxazole [From Bactrim] Allergy (Verified 07/03/20 14:27) trimethoprim [From Bactrim] Allergy (Verified 07/03/20 14:27) - Discharge Instructions Activity:: Activity as Tolerated Nourishment:: Heart Healthy Diet, Low Sodium Diet Therapies:: Occupational Therapy, Physical Therapy, Speech Therapy, Wound Care Equipment/Supplies:: Not Applicable IV Therapy:: Not Applicable - Follow up Plan Referrals: VICKIE HARRIS [Primary Care Provider] - Ish Penn DO [Active] - 10/15/20 2:00 pm (With CBC) Disposition: [facility] Quality - Care Measures CORE MEASURES:: N/A
[2020-10-04 11:28] VITALS: TEMP 97.5
[2020-10-04 15:20] VITALS: BP 144/58
== END 2020-10-04 15:20 | DRG 799 ==
LOC: ERS 06:06 → ERHOLD 07:21 → 2NO 15:50 → CCU 21:07 → SURG A 09-25 16:04
PROVIDERS: ADMIT Internal Medicine; ATTEND Hospitalist
PROC: 07BP0ZZ Excision of Spleen, Open Approach (ICD-10-PCS; principal; 2020-09-20)
PROC: 30233N1 Transfusion of Nonautologous Red Blood Cells into Peripheral Vein, Percutaneous Approach (ICD-10-PCS; 2020-09-20)
PROC: 02HV33Z Insertion of Infusion Device into Superior Vena Cava, Percutaneous Approach (ICD-10-PCS; 2020-09-20)
PROC: 0BH18EZ Insertion of Endotracheal Airway into Trachea, Via Natural or Artificial Opening Endoscopic (ICD-10-PCS; 2020-09-20)
PROC: 5A1945Z Respiratory Ventilation, 24-96 Consecutive Hours (ICD-10-PCS; 2020-09-20)
PROC: 0WCG0ZZ Extirpation of Matter from Peritoneal Cavity, Open Approach (ICD-10-PCS; 2020-09-20)
DX: S36.09XA Other injury of spleen, initial encounter (principal); J96.01 Acute respiratory failure with hypoxia; K66.1 Hemoperitoneum; R57.8 Other shock; I21.A1 Myocardial infarction type 2; I50.23 Acute on chronic systolic (congestive) heart failure; A41.9 Sepsis, unspecified organism; D61.818 Other pancytopenia; C95.90 Leukemia, unspecified not having achieved remission; J98.11 Atelectasis; I13.0 Hypertensive heart and chronic kidney disease with heart failure and stage 1 through stage 4 chronic kidney disease, or unspecified chronic kidney disease; E87.0 Hyperosmolality and hypernatremia; D62 Acute posthemorrhagic anemia; N17.9 Acute kidney failure, unspecified; E87.3 Alkalosis; E87.6 Hypokalemia; E88.09 Other disorders of plasma-protein metabolism, not elsewhere classified; E83.42 Hypomagnesemia; E83.39 Other disorders of phosphorus metabolism; E87.5 Hyperkalemia; Z51.5 Encounter for palliative care; E03.9 Hypothyroidism, unspecified; N18.30 Chronic kidney disease, stage 3 unspecified; F03.90 Unspecified dementia, unspecified severity, without behavioral disturbance, psychotic disturbance, mood disturbance, and anxiety; R16.1 Splenomegaly, not elsewhere classified; I48.0 Paroxysmal atrial fibrillation; D50.9 Iron deficiency anemia, unspecified; Z96.652 Presence of left artificial knee joint; Z88.1 Allergy status to other antibiotic agents; Z88.0 Allergy status to penicillin; Z88.2 Allergy status to sulfonamides; Z88.8 Allergy status to other drugs, medicaments and biological substances; Z79.01 Long term (current) use of anticoagulants; Z79.899 Other long term (current) drug therapy; Z79.890 Hormone replacement therapy; Z87.891 Personal history of nicotine dependence; X58.XXXA Exposure to other specified factors, initial encounter
CPT/HCPCS: 36415; 36430; 36600; 70450; 71045; 74018; 80048; 80053; 80069; 80162; 81001; 82040; 82533; 82553; 82570; 82728; 82805; 83540; 83550; 83605; 83735; 83880; 84100; 84156; 84300; 85025; 85060; 85384; 85610; 85730; 86140; 86850; 86870; 86900; 86901; 86922; 87040; 87070; 87086; 87205; 87635; 88305; 88341; 88342; 90471; 90648; 90670; 90733; 93005; 93010; 94002; 94003; 94640; 96365; C9132; G0009; J0690; J1160; J1644; J1650; J1720; J1940; J2250; J2370; J2543; J2704; J2916; J3010; J3475; J3480; J3490; J7050; J7070; J7120; J7620; P9016; P9045; P9047; Q0163; U0003

== ENCOUNTER 2021-11-30 19:03 | Inpatient (IN) | payer MEDICARE ==
[~2021-11-30 19:03] MED LIST: Iopamidol 370 76% 100 ML VIAL ONE
[2021-11-30] MEDS ORDERED: Boostrix 0.5 ML (Tdap) VIAL ONE (19:18)
[2021-11-30 19:19] LABS: Actual Bicarbonate (HCO3a) 28.4 mEq/L (22-28); Analyzer IN Cardio ER; Base Excess (BEa) 3.2 mEq/L (-2.0 to +3.0); CO2 Tension 45.8 mmHg (35.0-45.0); Calcium, Ionized (arterial) 1.24 mmol/L (1.12-1.30); Carboxyhemoglobin (COHb) 0.3 gm% (0.0-3.0); Hemoglobin (Hb) 13.4 g/dL (14.0-18.0); O2 Tension (PaO2), arterial 76.4 mmHg (> 60.0); Potassium - ABG Lab 3.14 mmol/L (3.70-5.30); pH, Arterial 7.41 (7.35-7.45)
[2021-11-30 19:20] LABS: Puncture Site LRA
[2021-11-30 19:22] LABS: Hemoglobin 12.9 g/dL (14.0-18.0); Mean Corpuscular HGB CONC 31.5 g/dL (32.0-36.0); Mean Corpuscular Hemoglobin 30.5 pg (27.0-31.0); Mean Corpuscular Volume 96.8 fL (78.0-98.0); Mean Platelet Volume 11.5 fL (7.4-10.4); Platelet Count 139 thou/uL (130-400); RBC Distribution Width 14.7 % (11.5-14.5); Red Blood Cell (RBC) Count 4.22 mill/uL (4.70-6.10); Reflex for Review?? YES; White Blood Cell (WBC) Count 60.4 thou/uL (4.8-10.8)
[2021-11-30 19:29] LABS: INR-International Normal Ratio 1.1; Prothrombin Time 14.7 sec (12.0-14.7)
[2021-11-30] MEDS ORDERED: ceFAZolin 2 GM/Dextrose 50 ML 2 GM in Premix Bag 1 BAG IVPB SCH (19:30)
[2021-11-30] MEDS ORDERED: fentaNYL Citrate/PF 2,000 MCG in Sodium Chloride 0.9% 60 ML IV SCH (19:30)
[2021-11-30 19:32] LABS: ALT (SGPT) 13 U/L (8-55); AST (SGOT) 28 U/L (5-34); Albumin 3.8 g/dL (3.4-4.8); Alkaline Phosphatase 401 U/L (40-110); Anion Gap 17 mmol/L (10-20); BUN (Urea Nitrogen) 16 mg/dL (8.4-25.7); Bilirubin, Total 1.1 mg/dL (0.2-1.2); Calc. Creatinine Clearance 0 mL/min (70-130); Calcium 10.1 mg/dL (7.8-10.44); Carbon Dioxide 26 mmol/L (23-31); Chloride 100 mmol/L (98-107); Globulin 2.8 g/dL (2.4-3.5); Glucose 208 mg/dL (83-110); Lipase 31 U/L (8-78); Potassium 3.6 mmol/L (3.5-5.1); Protein, Total 6.6 g/dL (5.8-8.1); Sodium 139 mmol/L (136-145)
[2021-11-30 19:44] LABS: Basophilic Stippling SLIGHT = 1-2 cells (100X) (None Seen); Eosinophils 3 % (0-10); Lymphocytes 69 % (21-51); MDiff Complete? YES; Monocytes 5 % (0-10); Neutrophil 20 % (42-75); Ovalocytes SLIGHT = 2-5 cells (100X) (0-1/hpf); Platelet Morphology Comment Appears Adequate; Polychromasia SLIGHT = 2-3 cells (100X) (0-2/hpf); Reactive Lymphocytes 3 % (0-10); Target Cells SLIGHT = 2-5 cells (100X) (0-1/hpf)
[2021-11-30] MEDS ORDERED: Mannitol 12.5 GM/50 ML ONE (19:45)
[2021-11-30] MEDS ORDERED: manNITOL 20% 500 ML ONE (19:47)
[2021-11-30] MEDS ORDERED: Thrombin 5000 UNITS/5 ML VIAL ONE (20:13)
[2021-11-30] MEDS ORDERED: Lidocaine 0.5%/Epinephrine 1:200,000 50 ml Vial ONE (20:13)
[2021-11-30] MEDS ORDERED: Bacitracin Zinc Ointment 30 gm TUBE ONE (20:13)
[2021-11-30] MEDS ORDERED: Neomycin-Polymyxin 1 ML AMP ONE (20:13)
[2021-11-30] MEDS ORDERED: HUMAN PROTHROMBIN COMPLX IV SCH (20:30)
[2021-11-30 20:32] LABS: Bacteria/HPF None Seen HPF (None Seen); Bilirubin Negative (Negative); Blood, Urine 1+ (Negative); Clarity Turbid (Clear); Glucose, Urine (Dipstick) 70 mg/dL (Negative); Ketone, Urine Negative (Negative); Leukocyte Negative Leu/uL (Negative); Nitrite Negative (Negative); Protein, Urine (Dipstick) 10 mg/dL (Neg-Trace); Specific Gravity, Urine 1.008 (1.002-1.036); Squamous Epithelial 0-3 HPF (0-3); Urobilinogen Normal mg/dL (Less than 2); WBC/HPF 0-3 HPF (0-3); pH, Urine 7.5 (5.0-9.0)
[2021-11-30] MEDS ORDERED: Dextrose 5% in Water 1,000 ML IV PRN (20:39)
[2021-11-30] MEDS ORDERED: Ondansetron PF 4 MG/2 ML Vial IVP PRN (20:39)
[2021-11-30] MEDS ORDERED: Dextrose 50% Abboject 50 ML SYRINGE SLOW IVP PRN (20:39)
[2021-11-30] MEDS ORDERED: Fentanyl 100 MCG/2 ML VIAL ONE (20:41)
[2021-11-30] MEDS ORDERED: Ondansetron PF 4 MG/2 ML Vial ONE (20:44)
[2021-11-30] MEDS ORDERED: ePHEDrine 50 MG/ML VIAL ONE (20:44)
[2021-11-30] MEDS ORDERED: Rocuronium Bromide 10 MG/ML (10ML VIAL) ONE (20:44)
[2021-11-30] MEDS ORDERED: Dexamethasone 20 MG/5 ML VIAL ONE (20:44)
[2021-11-30] MEDS ORDERED: PHENYLEPHRINE-NS 100 MCG/ML 10 ML SYRINGE ONE ×2 (20:44→21:24)
[2021-11-30 21:00] LABS: Magnesium 1.9 mg/dL (1.6-2.6); Phosphorus 3.3 mg/dL (2.3-4.7)
[2021-11-30] MEDS ORDERED: Famotidine/PF 20 mg/2ml Vial SLOW IVP SCH (21:00)
[2021-11-30 21:05] LABS: SARS-CoV-2 NAA Rapid Test Not Detected (NotDetected)
[2021-11-30] MEDS ORDERED: ePHEDrine Sulfate 50 MG/10 ML VIAL ONE (21:24)
[2021-11-30] MEDS ORDERED: Potassium Phosphate 15 MMOL in Sodium Chloride 0.9% 250 ML 250 ML IVPB SCH (22:00)
[2021-11-30] MEDS ORDERED: Magnesium 2 GM/50 ML 2 GM in Premix Bag 1 BAG IVPB SCH (22:00)
[2021-11-30] MEDS ORDERED: Morphine 4 MG/ML VIAL SLOW IVP PRN (22:24)
[2021-11-30] MEDS ORDERED: Mag-Al 1200 mg/1200 mg/30 ML UDCUP PO PRN (22:24)
[2021-11-30] MEDS ORDERED: Labetalol HCl 100 MG/20 ML VIAL SLOW IVP PRN (22:24)
[2021-11-30 22:35] LABS: Amphetamine Not Detected (NotDetected); Barbiturates Screen Not Detected (NotDetected); Benzodiazepine Screen Not Detected (NotDetected); Cocaine Metabolite Screen Not Detected (NotDetected); Methadone Not Detected (NotDetected); Methamphetamine Not Detected (NotDetected); Opiate Screen Not Detected (NotDetected); Oxycodone Screen Not Detected (NotDetected); Phencyclidine (PCP) Not Detected (NotDetected); THC/Cannabinoid Screen Not Detected (NotDetected); Tricyclic Screen Not Detected (NotDetected)
[2021-11-30] MEDS ORDERED: Clindamycin/D5W 900 MG in Premix Bag 1 BAG IVPB SCH ×2 (23:00→23:59)
[2021-11-30 23:16] VITALS: BMI 24.0
[2021-11-30 23:38] LABS: Actual Bicarbonate (HCO3a) 30.4 mEq/L (22-28); Base Excess (BEa) 5.9 mEq/L (-2.0 to +3.0); CO2 Tension 43.8 mmHg (35.0-45.0); Calcium, Ionized (arterial) 1.17 mmol/L (1.12-1.30); Carboxyhemoglobin (COHb) 0.1 gm% (0.0-3.0); Hemoglobin (Hb) 12.4 g/dL (14.0-18.0); Potassium - ABG Lab 3.26 mmol/L (3.70-5.30); pH, Arterial 7.46 (7.35-7.45)
[2021-11-30 23:42] LABS: Puncture Site LINE
[2021-11-30] MEDS: Acetaminophen 500 MG TAB PO SCH (23:55)
[2021-11-30] MEDS: Clindamycin/D5W 900 MG in Premix Bag 1 BAG IVPB SCH (23:58)
[2021-11-30] MEDS: Sodium Chloride 0.9% 1,000 ML IV SCH (23:58)
[2021-12-01 04:33] LABS: Anion Gap 14 mmol/L (10-20); BUN (Urea Nitrogen) 18 mg/dL (8.4-25.7); Calc. Creatinine Clearance 42 mL/min (70-130); Calcium 9.8 mg/dL (7.8-10.44); Carbon Dioxide 30 mmol/L (23-31); Chloride 104 mmol/L (98-107); Glucose 148 mg/dL (83-110); Magnesium 2.8 mg/dL (1.6-2.6); Potassium 3.8 mmol/L (3.5-5.1); Sodium 144 mmol/L (136-145)
[2021-12-01] MEDS ORDERED: Hydrocortisone Sod Succ/PF 100 mg/2 ml Vial IVP SCH (06:00)
[2021-12-01] MEDS: Acetaminophen 500 MG TAB PO SCH ×4 (06:10→23:38)
[2021-12-01 06:29] LABS: Hemoglobin 10.9 g/dL (14.0-18.0); Mean Corpuscular HGB CONC 31.4 g/dL (32.0-36.0); Mean Corpuscular Hemoglobin 29.9 pg (27.0-31.0); Mean Corpuscular Volume 95.1 fL (78.0-98.0); Mean Platelet Volume 11.7 fL (7.4-10.4); Platelet Count 148 thou/uL (130-400); RBC Distribution Width 14.5 % (11.5-14.5); Red Blood Cell (RBC) Count 3.66 mill/uL (4.70-6.10); White Blood Cell (WBC) Count 40.7 thou/uL (4.8-10.8)
[2021-12-01 06:41] LABS: Band 13 % (5-11); Lymphocytes 53 % (21-51); MDiff Complete? YES; Monocytes 7 % (0-10); Neutrophil 27 % (42-75); RBC Morphology Normal
[2021-12-01] MEDS ORDERED: Potassium Chloride 40 MEQ in Sodium Chloride 0.9% 250 ML 250 ML IVPB SCH (07:45)
[2021-12-01] MEDS: Senokot S 8.6-50 MG TAB PO SCH ×2 (08:06→20:09)
[2021-12-01] MEDS: Clindamycin/D5W 900 MG in Premix Bag 1 BAG IVPB SCH ×3 (08:06→23:38)
[2021-12-01] MEDS: Polyethylene Glycol 3350 17 GM Packet PO SCH (08:07)
[2021-12-01 08:30] LABS: Actual Bicarbonate (HCO3a) 29.1 mEq/L (22-28); Base Excess (BEa) 4.8 mEq/L (-2.0 to +3.0); CO2 Tension 41.6 mmHg (35.0-45.0); Calcium, Ionized (arterial) 1.18 mmol/L (1.12-1.30); Carboxyhemoglobin (COHb) 0.3 gm% (0.0-3.0); Hemoglobin (Hb) 11.6 g/dL (14.0-18.0); O2 Tension (PaO2), arterial 131.2 mmHg (> 60.0); Potassium - ABG Lab 3.54 mmol/L (3.70-5.30); pH, Arterial 7.46 (7.35-7.45)
[2021-12-01 08:32] LABS: Puncture Site Arterial Line
[2021-12-01] MEDS: Hydrocortisone Sod Succ/PF 100 mg/2 ml Vial IVP SCH ×3 (11:46→23:37)
[2021-12-01] MEDS: Sodium Chloride 0.9% 1,000 ML IV SCH ×2 (11:47→17:53)
[2021-12-01] MEDS: HumaLOG 300 UNITS/3 ML VIAL SC PRN (12:16)
[2021-12-01 17:17] LABS: Anion Gap 13 mmol/L (10-20); BUN (Urea Nitrogen) 24 mg/dL (8.4-25.7); Calc. Creatinine Clearance 33 mL/min (70-130); Calcium 10.2 mg/dL (7.8-10.44); Carbon Dioxide 32 mmol/L (23-31); Chloride 111 mmol/L (98-107); Glucose 186 mg/dL (83-110); Potassium 3.9 mmol/L (3.5-5.1); Sodium 152 mmol/L (136-145)
[2021-12-01] MEDS ORDERED: Sodium Chloride 0.9% 1,000 ML IV SCH (17:45)
[2021-12-01] MEDS ORDERED: Norepinephrine 8 MG/0.9% NS 250 ML ONE (19:49)
[2021-12-01] MEDS: Famotidine/PF 20 mg/2ml Vial SLOW IVP SCH (20:09)
[2021-12-01 23:23] LABS: Anion Gap 15 mmol/L (10-20); BUN (Urea Nitrogen) 25 mg/dL (8.4-25.7); Calc. Creatinine Clearance 34 mL/min (70-130); Calcium 9.4 mg/dL (7.8-10.44); Carbon Dioxide 29 mmol/L (23-31); Chloride 116 mmol/L (98-107); Glucose 180 mg/dL (83-110); Potassium 3.8 mmol/L (3.5-5.1); Sodium 156 mmol/L (136-145)
[2021-12-02] MEDS: Lactated Ringer's 1,000 ML IV SCH ×3 (00:23→20:26)
[2021-12-02 04:28] LABS: Anion Gap 15 mmol/L (10-20); BUN (Urea Nitrogen) 30 mg/dL (8.4-25.7); Calc. Creatinine Clearance 32 mL/min (70-130); Calcium 9.9 mg/dL (7.8-10.44); Carbon Dioxide 31 mmol/L (23-31); Chloride 115 mmol/L (98-107); Glucose 221 mg/dL (83-110); Magnesium 2.6 mg/dL (1.6-2.6); Phosphorus 3.2 mg/dL (2.3-4.7); Potassium 3.7 mmol/L (3.5-5.1); Sodium 157 mmol/L (136-145)
[2021-12-02 04:50] LABS: Critical Call w/ Read Back ICU.RB; Hemoglobin 10.5 g/dL (14.0-18.0); Lymphocytes 72 % (21-51); MDiff Complete? YES; Mean Corpuscular HGB CONC 31.5 g/dL (32.0-36.0); Mean Corpuscular Volume 95.1 fL (78.0-98.0); Mean Platelet Volume 11.6 fL (7.4-10.4); Monocytes 3 % (0-10); Neutrophil 24 % (42-75); Nucleated RBC 1 % (0); Platelet Count 159 thou/uL (130-400); RBC Distribution Width 14.9 % (11.5-14.5); Reactive Lymphocytes 1 % (0-10); Red Blood Cell (RBC) Count 3.49 mill/uL (4.70-6.10); White Blood Cell (WBC) Count 60.9 thou/uL (4.8-10.8)
[2021-12-02] MEDS: Acetaminophen 500 MG TAB PO SCH ×4 (05:25→23:49)
[2021-12-02] MEDS: Hydrocortisone Sod Succ/PF 100 mg/2 ml Vial IVP SCH ×4 (05:26→23:49)
[2021-12-02] MEDS: HumaLOG 300 UNITS/3 ML VIAL SC PRN ×3 (06:06→18:08)
[2021-12-02 07:13] LABS: Anion Gap 13 mmol/L (10-20); BUN (Urea Nitrogen) 31 mg/dL (8.4-25.7); Calc. Creatinine Clearance 33 mL/min (70-130); Carbon Dioxide 32 mmol/L (23-31); Chloride 116 mmol/L (98-107); Glucose 198 mg/dL (83-110); Sodium 157 mmol/L (136-145)
[2021-12-02] MEDS: Senokot S 8.6-50 MG TAB PO SCH ×2 (08:19→20:19)
[2021-12-02] MEDS: Clindamycin/D5W 900 MG in Premix Bag 1 BAG IVPB SCH ×3 (08:19→23:49)
[2021-12-02] MEDS: Polyethylene Glycol 3350 17 GM Packet PO SCH (08:19)
[2021-12-02 11:24] LABS: Anion Gap 10 mmol/L (10-20); BUN (Urea Nitrogen) 32 mg/dL (8.4-25.7); Calc. Creatinine Clearance 35 mL/min (70-130); Calcium 9.8 mg/dL (7.8-10.44); Carbon Dioxide 34 mmol/L (23-31); Chloride 115 mmol/L (98-107); Glucose 237 mg/dL (83-110); Potassium 3.3 mmol/L (3.5-5.1); Sodium 156 mmol/L (136-145)
[2021-12-02] MEDS ORDERED: Potassium Phosphate 30 MMOL in Sodium Chloride 0.9% 250 ML 250 ML IVPB SCH (15:00)
[2021-12-02] MEDS: hydrALAZINE 20 MG/ML VIAL SLOW IVP PRN ×2 (15:21→20:46)
[2021-12-02 17:15] LABS: Anion Gap 14 mmol/L (10-20); BUN (Urea Nitrogen) 34 mg/dL (8.4-25.7); Calc. Creatinine Clearance 36 mL/min (70-130); Calcium 10.3 mg/dL (7.8-10.44); Carbon Dioxide 30 mmol/L (23-31); Chloride 117 mmol/L (98-107); Glucose 227 mg/dL (83-110); Potassium 3.6 mmol/L (3.5-5.1); Sodium 157 mmol/L (136-145)
[2021-12-02] MEDS: Famotidine/PF 20 mg/2ml Vial SLOW IVP SCH (20:20)
[2021-12-03 04:32] LABS: Anion Gap 16 mmol/L (10-20); BUN (Urea Nitrogen) 34 mg/dL (8.4-25.7); Calc. Creatinine Clearance 35 mL/min (70-130); Calcium 10.4 mg/dL (7.8-10.44); Carbon Dioxide 25 mmol/L (23-31); Chloride 121 mmol/L (98-107); Glucose 176 mg/dL (83-110); Magnesium 2.3 mg/dL (1.6-2.6); Phosphorus 4.1 mg/dL (2.3-4.7); Potassium 4.9 mmol/L (3.5-5.1); Sodium 157 mmol/L (136-145)
[2021-12-03] MEDS: Lactated Ringer's 1,000 ML IV SCH ×2 (05:10→16:17)
[2021-12-03] MEDS: Hydrocortisone Sod Succ/PF 100 mg/2 ml Vial IVP SCH ×3 (05:11→17:16)
[2021-12-03] MEDS: Acetaminophen 500 MG TAB PO SCH ×3 (05:11→17:16)
[2021-12-03] MEDS: hydrALAZINE 20 MG/ML VIAL SLOW IVP PRN (05:13)
[2021-12-03 09:26] LABS: Hemoglobin 9.7 g/dL (14.0-18.0); Mean Corpuscular HGB CONC 28.9 g/dL (32.0-36.0); Mean Corpuscular Hemoglobin 28.2 pg (27.0-31.0); Mean Corpuscular Volume 97.7 fL (78.0-98.0); Mean Platelet Volume 11.5 fL (7.4-10.4); Platelet Count 153 thou/uL (130-400); RBC Distribution Width 15.1 % (11.5-14.5); Red Blood Cell (RBC) Count 3.43 mill/uL (4.70-6.10); White Blood Cell (WBC) Count 71.6 thou/uL (4.8-10.8)
[2021-12-03 10:35] LABS: Lymphocytes 78 % (21-51); MDiff Complete? YES; Monocytes 3 % (0-10); Myelocyte 1 % (0-0); Neutrophil 18 % (42-75); Nucleated RBC 1 % (0); Platelet Morphology Comment Appears Adequate; RBC Morphology Normal
[2021-12-03] MEDS: Polyethylene Glycol 3350 17 GM Packet PO SCH (10:42)
[2021-12-03] MEDS: Clindamycin/D5W 900 MG in Premix Bag 1 BAG IVPB SCH ×2 (10:42→16:17)
[2021-12-03] MEDS: Senokot S 8.6-50 MG TAB PO SCH (10:42)
[2021-12-03 15:07] VITALS: BP 147/43
[2021-12-03 16:21] VITALS: TEMP 98.4
== END 2021-12-03 19:18 | disposition hospice, inpatient (51) | DRG 25 ==
LOC: ERS 19:03 → SDC/OP 20:33 → CCU 21:00
PROVIDERS: ADMIT Neurological Surgery; ATTEND Neurological Surgery
PROC: 00C40ZZ Extirpation of Matter from Intracranial Subdural Space, Open Approach (ICD-10-PCS; principal; 2021-11-30)
PROC: 5A1945Z Respiratory Ventilation, 24-96 Consecutive Hours (ICD-10-PCS; 2021-11-30)
PROC: 0D9770Z Drainage of Stomach, Pylorus with Drainage Device, Via Natural or Artificial Opening (ICD-10-PCS; 2021-11-30)
DX: S06.5X0A Traumatic subdural hemorrhage without loss of consciousness, initial encounter (principal); J96.01 Acute respiratory failure with hypoxia; G93.5 Compression of brain; I50.23 Acute on chronic systolic (congestive) heart failure; C91.10 Chronic lymphocytic leukemia of B-cell type not having achieved remission; G91.9 Hydrocephalus, unspecified; D62 Acute posthemorrhagic anemia; E27.40 Unspecified adrenocortical insufficiency; E23.2 Diabetes insipidus; N17.9 Acute kidney failure, unspecified; Z51.5 Encounter for palliative care; Z66 Do not resuscitate; R40.2312 Coma scale, best motor response, none, at arrival to emergency department; R40.2112 Coma scale, eyes open, never, at arrival to emergency department; S06.6X0A Traumatic subarachnoid hemorrhage without loss of consciousness, initial encounter; W18.30XA Fall on same level, unspecified, initial encounter; I48.91 Unspecified atrial fibrillation; Z20.822 Contact with and (suspected) exposure to COVID-19; E03.9 Hypothyroidism, unspecified; D72.829 Elevated white blood cell count, unspecified; Z88.0 Allergy status to penicillin; Z88.2 Allergy status to sulfonamides; Z88.1 Allergy status to other antibiotic agents; Z79.890 Hormone replacement therapy; Z79.01 Long term (current) use of anticoagulants; Z79.899 Other long term (current) drug therapy; Z79.02 Long term (current) use of antithrombotics/antiplatelets; Z88.8 Allergy status to other drugs, medicaments and biological substances; Z90.49 Acquired absence of other specified parts of digestive tract; Z78.1 Physical restraint status
CPT/HCPCS: 36415; 36416; 36430; 36600; 70450; 71045; 71260; 72125; 74177; 80048; 80053; 80306; 80307; 81003; 81015; 82533; 82805; 83605; 83690; 83735; 83930; 83935; 84100; 85025; 85060; 85610; 85730; 86850; 86870; 86900; 86901; 86922; 90715; 94002; 94003; 94640; 94760; C1713; C1781; J0360; J0690; J1100; J1720; J1815; J2001; J2150; J2405; J2597; J3010; J3475; J3480; J3490; J7050; J7120; J7168; J7620; J7799; P9059; Q9967; S0028; U0002

== ENCOUNTER 2021-12-03 19:39 | Inpatient (IN) | payer OTHER ==
[2021-12-03] MEDS ORDERED: Morphine 4 MG/ML VIAL SLOW IVP PRN (20:11)
[2021-12-03] MEDS ORDERED: Lorazepam 2 MG/ML VIAL SLOW IVP PRN (20:12)
== END 2021-12-03 23:02 | disposition expired | DRG 951 ==
LOC: CCU 19:39
PROVIDERS: ADMIT Family Medicine; ATTEND Family Medicine
DX: Z51.5 Encounter for palliative care (principal); S06.5X9A Traumatic subdural hemorrhage with loss of consciousness of unspecified duration, initial encounter; J96.90 Respiratory failure, unspecified, unspecified whether with hypoxia or hypercapnia; S06.A1XA Traumatic brain compression with herniation, initial encounter; S06.2X9A Diffuse traumatic brain injury with loss of consciousness of unspecified duration, initial encounter; E23.2 Diabetes insipidus; N17.9 Acute kidney failure, unspecified; D62 Acute posthemorrhagic anemia; I48.91 Unspecified atrial fibrillation; I50.9 Heart failure, unspecified; E03.9 Hypothyroidism, unspecified; Z66 Do not resuscitate; W19.XXXA Unspecified fall, initial encounter; Y92.9 Unspecified place or not applicable
CPT/HCPCS: J2060; J2270